=== PATIENT | male | born 1990 | race Caucasian/White ===

== ENCOUNTER 2016-09-28 18:17 | Emergency (ER) | payer OTHER ==
[~2016-09-28] VITALS: Ht 182.9 cm; Wt 101.2 kg
[~2016-09-28 18:17] MED LIST: /ESCI10TA OR; /ESCI20TA OR; ALLE25CA OR; DEPA500T OR; ESKALITH; LITHOBID; eskalith cr
[2016-09-28] MEDS ORDERED: NS 1,000 ML IV ONE (18:45)
[2016-09-28] MEDS ORDERED: GASTROGRAFIN SOLUTION 30ML (Q9963) PO ONE ×2 (19:00→19:30)
[2016-09-28 19:25] LABS: BASO % 0.3 % (0.0-1.0); EOS # 0.3 K/mm3 (0.0-0.50); EOS % 3.3 % (0.0-3.0); LARGE UNSTAINED CELL # 0.2 K/mm3 (0.0-0.4); LARGE UNSTAINED CELL % 1.7 % (0.0-4.0); LYMPH # 3.4 K/mm3 (1.5-6.5); LYMPH % 35.4 % (24.0-44.0); MEAN CORPUSCULAR HEMOGLOBIN 29.4 pg (27.0-33.0); MEAN CORPUSCULAR VOLUME 86.6 fl (80.0-96.0); MONO # 0.5 K/mm3 (0.0-0.8); MONO % 5.3 % (0.0-5.0); NEUTROPHILS # 5.3 K/mm3 (1.8-7.7); NEUTROPHILS % 54.1 % (36.0-66.0); PLATELET COUNT, AUTOMATED 227 k/mm3 (150-450); RED CELL DISTRIBUTION WIDTH 12.6 % (11.5-14.5); WHITE BLOOD COUNT 9.7 K/mm3 (4.0-10.0)
[2016-09-28 19:45] LABS: ALBUMIN 3.9 GM/DL (3.2-5.2); ALBUMIN/GLOBULIN RATIO 1.39 (1.00-1.93); ALKALINE PHOSPHATASE 89 U/L (45-117); ALT/SGPT 44 U/L (12-78); ANION GAP 7 MEQ/L (8-16); AST/SGOT 18 U/L (15-37); BILIRUBIN,DIRECT < 0.1 MG/DL (0.0-0.2); BILIRUBIN,TOTAL 0.3 MG/DL (0.2-1.0); BLOOD UREA NITROGEN 21 MG/DL (7-18); CALCIUM LEVEL 8.3 MG/DL (8.5-10.1); CARBON DIOXIDE LEVEL 26 MEQ/L (21-32); CHLORIDE LEVEL 108 MEQ/L (98-107); CREATININE FOR GFR 1.31 MG/DL (0.70-1.30); GLOMERULAR FILTRATION RATE > 60.0 (>60); GLUCOSE, FASTING 83 MG/DL (70-105); POTASSIUM SERUM 4.2 MEQ/L (3.5-5.1); SODIUM LEVEL 141 MEQ/L (136-145); TOTAL PROTEIN 6.7 GM/DL (6.4-8.2)
[2016-09-28] MEDS ORDERED: DICYCLOMINE 10 MG CAP PO ONE (19:45)
[2016-09-28] MEDS ORDERED: ISOVUE-370 76% 100ML VIAL (Q9967) As Ordered ONE (19:52)
--- NOTE | 2016-09-28 20:58 | REP ---
Clinical: Right lower quadrant pain. Technique: Axial contrast enhanced images from the lung bases to the pubic symphysis using oral and 100 ml Isovue 370 intravenous contrast material with coronal and sagittal re-formations. Findings: Lung bases demonstrate posterior basilar dependent changes. Visualized heart and pericardium are normal. Liver, spleen, pancreas, gallbladder, bilateral adrenal glands and kidneys are normal. The enteric system including stomach, small, and large bowel is unremarkable and without obstruction or acute inflammatory process. Normal terminal ileum and appendix identified in the right lower quadrant. Mildly prominent lymph nodes in the right lower quadrant and mesentery suggest mesenteric adenitis and should be correlated clinically. Pelvis demonstrates normal bladder and age appropriate prostate/seminal vesicles. No free air. No free fluid. No retroperitoneal adenopathy. Vasculature is normal. Surrounding musculoskeletal structures are intact. Impression: 1. Lymph nodes in the right lower quadrant and mesentery suggest mesenteric adenitis. 2. Normal enteric system including normal appendix in the right lower quadrant. 3. No free fluid or further acute intra-abdominal or pelvic pathology. Signed by Lit Sin MD 09/28/2016 08:49 P
[2016-09-28 21:14] VITALS: BP 121/67
== END 2016-09-28 21:33 | disposition home or self-care (01) ==
LOC: M ED 18:50
DX: I88.0 Nonspecific mesenteric lymphadenitis (principal)

== ENCOUNTER 2017-09-19 11:23 | Emergency (ER) | payer MEDICARE, OTHER, MEDICAID, SELFPAY ==
[2017-09-19] MEDS: NS 1,000 ML IV ×2 (11:45)
[2017-09-19] MEDS: ONDANSETRON 4MG/2ML VIAL (J2405) IV ×2 (12:10)
[2017-09-19] MEDS: MORPHINE 4 MG/ML 1ML VIAL/SYRINGE (J2270) IV ×2 (12:11)
[2017-09-19 12:14] LABS: BASO % 0.3 % (0.0-1.0); EOS # 0.2 10^3/uL (0.0-0.50); EOS % 2.4 % (0.0-3.0); HEMATOCRIT 46.9 % (42.0-52.0); HEMOGLOBIN 16.4 g/dl (13.5-17.5); IMMATURE GRANULOCYTE % 0.2 % (0-3.0); LYMPH # 2.3 10^3/uL (1.5-6.5); LYMPH % 22.3 % (24.0-44.0); MEAN CORPUSCULAR HEMOGLOBIN 29.1 pg (27.0-33.0); MEAN CORPUSCULAR VOLUME 83.3 fl (80.0-96.0); MONO # 0.6 10^3/uL (0.0-0.8); MONO % 5.6 % (0.0-5.0); NEUTROPHILS % 69.2 % (36.0-66.0); PLATELET COUNT, AUTOMATED 220 10^3/uL (150-450); RED BLOOD COUNT 5.63 10^6/uL (4.30-6.10); RED CELL DISTRIBUTION WIDTH 12.7 % (11.5-14.5); WHITE BLOOD COUNT 10.2 10^3/uL (4.0-10.0)
[2017-09-19 12:39] LABS: ALBUMIN/GLOBULIN RATIO 1.43 (1.00-1.93); ALKALINE PHOSPHATASE 87 U/L (45-117); ALT/SGPT 27 U/L (12-78); ANION GAP 6 MEQ/L (8-16); AST/SGOT 13 U/L (7-37); BILIRUBIN,DIRECT 0.2 MG/DL (0.0-0.2); BILIRUBIN,TOTAL 0.7 MG/DL (0.2-1.0); BLOOD UREA NITROGEN 15 MG/DL (7-18); CALCIUM LEVEL 8.4 MG/DL (8.5-10.1); CARBON DIOXIDE LEVEL 24 MEQ/L (21-32); CHLORIDE LEVEL 113 MEQ/L (98-107); CREATININE FOR GFR 0.99 MG/DL (0.70-1.30); GLOMERULAR FILTRATION RATE > 60.0 (>60); GLUCOSE, FASTING 79 MG/DL (70-100); LIPASE 157 U/L (73-393); POTASSIUM SERUM 4.1 MEQ/L (3.5-5.1); SODIUM LEVEL 143 MEQ/L (136-145); TOTAL PROTEIN 6.8 GM/DL (6.4-8.2)
[2017-09-19 12:40] LABS: LACTIC ACID SEPSIS PROTOCOL 0.6 MMOL/L (0.4-2.0)
[2017-09-19] MEDS ORDERED: ISOVUE-370 76% 100ML VIAL (Q9967) As Ordered ×2 (13:03)
[2017-09-19 15:11] LABS: KETONE, URINE AUTO RFX 1+ mg/dL (NEGATIVE); LEUKOCYTE ESTERASE UR AUTO RFX NEGATIVE (NEGATIVE); MUCUS, URINE RFX SMALL (NEGATIVE); NITRITE, URINE AUTO RFX NEGATIVE (NEGATIVE); RBC, URINE AUTO RFX 1 /HPF (0-3); SQUAM EPITHELIAL CELL UR AURFX 0 /HPF (0-6); WBC, URINE AUTO RFX 1 /HPF (0-3)
[2017-09-19 15:15] LABS: SPECIFIC GRAVITY UR AUTO RFX >1.060 (1.002-1.035)
== END 2017-09-19 15:59 | disposition home or self-care (01) ==
LOC: M ED 11:23
DX: K52.9 Noninfective gastroenteritis and colitis, unspecified (principal); F17.200 Nicotine dependence, unspecified, uncomplicated
CPT/HCPCS: J2270

== ENCOUNTER 2017-12-25 08:08 | Day surgery (SDC) | payer MEDICARE, MEDICAID ==
[2017-12-25] MEDS: NS 1,000 ML IV (07:00)
[~2017-12-25 08:08] MED LIST changes: -/ESCI10TA OR; -/ESCI20TA OR; -ALLE25CA OR; -DEPA500T OR; -ESKALITH; +LIDOCAINE 2% INJ 100 MG/5 ML SDV (FOR ANES.) As Ordered; -LITHOBID; +PROPOFOL 200 MG/20 ML VIAL As Ordered; -eskalith cr
== END 2017-12-25 10:40 | disposition home or self-care (01) ==
LOC: M OPP 08:08
DX: R10.9 Unspecified abdominal pain (principal); K31.89 Other diseases of stomach and duodenum; K29.70 Gastritis, unspecified, without bleeding; R07.89 Other chest pain; F41.9 Anxiety disorder, unspecified; F32.9 Major depressive disorder, single episode, unspecified; R06.02 Shortness of breath; F17.210 Nicotine dependence, cigarettes, uncomplicated; Z80.0 Family history of malignant neoplasm of digestive organs
CPT/HCPCS: 45378

== ENCOUNTER 2018-02-06 16:51 | Emergency (ER) | payer MEDICARE, MEDICAID ==
[2018-02-06] MEDS: diphenhydrAMINE INJ 50MG/ML VIAL (J1200) IV (17:47)
[2018-02-06] MEDS: KETOROLAC 30 MG/ML VIAL (J1885) IV (17:47)
[2018-02-06] MEDS: METOCLOPRAMIDE INJ 10MG/2ML VIAL (J2765) IV (17:47)
[2018-02-06 18:10] LABS: BASO % 0.4 % (0.0-1.0); EOS # 0.2 10^3/uL (0.0-0.50); EOS % 1.9 % (0.0-3.0); HEMATOCRIT 52.5 % (42.0-52.0); HEMOGLOBIN 17.7 g/dl (13.5-17.5); IMMATURE GRANULOCYTE % 0.4 % (0-3.0); LYMPH # 3.3 10^3/uL (1.5-6.5); LYMPH % 31.7 % (24.0-44.0); MEAN CORPUSCULAR HEMOGLOBIN 28.9 pg (27.0-33.0); MEAN CORPUSCULAR HGB CONC 33.7 g/dl (32.0-36.5); MEAN CORPUSCULAR VOLUME 85.8 fl (80.0-96.0); MONO # 0.6 10^3/uL (0.0-0.8); MONO % 5.4 % (0.0-5.0); NEUTROPHILS # 6.3 10^3/uL (1.8-7.7); NEUTROPHILS % 60.2 % (36.0-66.0); PLATELET COUNT, AUTOMATED 255 10^3/uL (150-450); RED BLOOD COUNT 6.12 10^6/uL (4.30-6.10); RED CELL DISTRIBUTION WIDTH 12.9 % (11.5-14.5); WHITE BLOOD COUNT 10.4 10^3/uL (4.0-10.0)
[2018-02-06 18:42] LABS: ANION GAP 6 MEQ/L (8-16); BLOOD UREA NITROGEN 12 MG/DL (7-18); CARBON DIOXIDE LEVEL 28 MEQ/L (21-32); CHLORIDE LEVEL 109 MEQ/L (98-107); CPK CREATINE PHOSPHOKINASE 152 U/L (39-308); CREATININE FOR GFR 1.02 MG/DL (0.70-1.30); GLOMERULAR FILTRATION RATE > 60.0 (>60); GLUCOSE, FASTING 82 MG/DL (70-100); MB/CK RELATIVE INDEX 1.38 (< OR =4); SODIUM LEVEL 143 MEQ/L (136-145); TROPONIN I < 0.02 NG/ML (< 0.10)
== END 2018-02-06 19:11 | disposition home or self-care (01) ==
LOC: M ED 16:51
DX: G44.209 Tension-type headache, unspecified, not intractable (principal); F41.9 Anxiety disorder, unspecified; F17.210 Nicotine dependence, cigarettes, uncomplicated
CPT/HCPCS: J1200

== ENCOUNTER 2019-05-29 10:23 | Emergency (ER) | payer MEDICAID, MEDICARE, OTHER ==
[~2019-05-29] VITALS: Ht 193 cm; Wt 102.3 kg
[~2019-05-29 10:23] MED LIST changes: +ALLE25CA OR; +DEPA500T OR; +ESKALITH; +LEXA1TAB OR; +LEXA1TAB2 OR; -LIDOCAINE 2% INJ 100 MG/5 ML SDV (FOR ANES.) As Ordered; +LITHOBID; +NAPR-837 PO; -PROPOFOL 200 MG/20 ML VIAL As Ordered; +RANI15TA PO; +ZOFR4TAB14 PO; +eskalith cr
[2019-05-29] MEDS ORDERED: NS 1,000 ML IV ONE (11:00)
[2019-05-29] MEDS ORDERED: ISOVUE-370 76% 100ML VIAL (Q9967) As Ordered ONE (11:18)
[2019-05-29 11:23] LABS: BASO % 0.5 % (0.0-1.0); EOS # 0.3 10^3/uL (0.0-0.5); EOS % 3.3 % (0.0-3.0); HEMATOCRIT 50.2 % (42.0-52.0); HEMOGLOBIN 16.3 g/dl (13.5-17.5); LYMPH # 2.7 10^3/uL (1.5-5.0); LYMPH % 34.7 % (24.0-44.0); MEAN CORPUSCULAR HEMOGLOBIN 27.8 pg (27.0-33.0); MEAN CORPUSCULAR HGB CONC 32.5 g/dl (32.0-36.5); MEAN CORPUSCULAR VOLUME 85.5 fl (80.0-96.0); MONO # 0.5 10^3/uL (0.0-0.8); MONO % 6.7 % (0.0-5.0); NEUTROPHILS # 4.3 10^3/uL (1.5-8.5); NEUTROPHILS % 54.4 % (36.0-66.0); PLATELET COUNT, AUTOMATED 268 10^3/uL (150-450); RED BLOOD COUNT 5.87 10^6/uL (4.30-6.10); WHITE BLOOD COUNT 7.9 10^3/uL (4.0-10.0)
[2019-05-29 11:46] LABS: ERYTHROCYTE SEDIMENTATION RATE 2 mm/hr (0-15)
--- NOTE | 2019-05-29 12:52 | REP ---
CT ANGIOGRAM CHEST: 05/29/2019. Clinical history: Chest pain. Technique: Bolus 75 mL Isovue 370, scanning through the chest with pulmonary angiogram protocol and with coronal and sagittal reconstructions and standard MIP reformats. Comparison: Chest x-ray 02/06/2018. Findings: The lung allen show minor dependent atelectatic change without infiltrate, effusion, atelectasis or mass. No nodules, pleural thickening, calcified pleural plaque or apical scarring. No pneumothorax or pneumomediastinum. Heart is not enlarged. There is no pericardial thickening or effusion. The aorta without aneurysm or dissection. The main, right and left pulmonary arteries as well as the lobar arteries are without filling defects to suggest pulmonary embolism. There is an anterior mediastinal mass superiorly in the thymic bed and it measures 4.8 vertically x 5.4 cm transverse x 2.7 cm AP. This is larger than normal for a young adult thymus and has convex margins instead of triangular-shaped concave margins. No abnormal calcifications. Attenuation values are in the high 20s to low 30s. There is no other mediastinal mass, mediastinal, hilar, axillary, supraclavicular adenopathy. Bone windows show sternum, manubrium, medial clavicles, that portion of scapula, humeral head and ribs visible as well as the spine without any focal bone abnormality. The upper abdomen shows no focal lesion in the visualized portion of liver and spleen. Gallbladder partially contracted due to recent meal. Adrenal glands normal. Upper poles kidneys intact. Pancreas unremarkable. Impression: 1. 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 Differential considerations include thymic hyperplasia, thymoma, lymphoma, germ cell neoplasm, intrathoracic goiter among others. There is no evidence to suggest goiter and no calcification or cystic components. Does not appear to invade fat. It has fairly smooth margins but is convex. No gross aggressive characteristics. 2. The lungs are clear. 3. There is no CT evidence of pulmonary thromboembolism. The aorta is intact. 4. Bony chest in the upper abdomen intact. 5. Surgical follow-up. I would note that the most recent chest x-ray of 02/06/2018 shows no plain radiographic evidence of a superior mediastinal mass and this would potentially be visible on radiograph given its location and size. Electronically Signed by Yousif Ruiz MD 05/29/2019 08:26 P
[2019-05-29 13:07] VITALS: BP 145/84
--- NOTE | 2019-05-29 19:25 | ECGEPIP ---
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 Order Number: [id number] Reading MD: Eddie West Measurements Intervals [place] Rate: 67 P: 18 [place]: 180 QRS: 4 QRSD: 93 T: 23 QT: 362 QTc: 385 Interpretive Statements SINUS RHYTHM EARLY REPOLARIZATION CW 02/05/[address] T WAVE CHANGES Electronically Signed on 05-29-2019 19:25:35 EST by Eddie Wets
--- NOTE | 2019-05-31 08:02 | ED PDOC ---
Post-Departure Follow-Up dr teresa and yoseph dawn faxed formal reprot of cta chest forfu.Eddie Eng MD May 31, 2019 08:02
== END 2019-05-29 13:14 | disposition home or self-care (01) ==
LOC: M ED 10:23
DX: J98.59 Other diseases of mediastinum, not elsewhere classified (principal); R91.8 Other nonspecific abnormal finding of lung field; F17.200 Nicotine dependence, unspecified, uncomplicated; F32.9 Major depressive disorder, single episode, unspecified; F41.9 Anxiety disorder, unspecified
CPT/HCPCS: 71275; 80047; 82105; 84702; 85025; 85652; 86140; 93005; 99284; Q9967

== ENCOUNTER → 2019-06-06 | Outpatient (REF) | payer MEDICAID, OTHER, SELFPAY ==
[2019-06-06 13:40] LABS: INR 1.11
[2019-06-06 13:41] LABS: PARTIAL THROMBOPLASTIN TIME 33.9 SECONDS (25.0-38.4)
[2019-06-06 13:46] LABS: PLATELET COUNT, AUTOMATED 278 10^3/uL (150-450)
== END ==
LOC: M LAB REF 13:19
PROVIDERS: ATTEND Thoracic Surgery (Cardiothoracic Vascular Surgery)
DX: Z01.812 Encounter for preprocedural laboratory examination (principal); R91.8 Other nonspecific abnormal finding of lung field

== ENCOUNTER → 2019-06-09 | Outpatient (CLI) | payer MEDICAID, MEDICARE, OTHER, SELFPAY ==
[~2019-06-09] MED LIST changes: +LIDOCAINE 1% MDV 20ML VIAL As Ordered ONE
--- NOTE | 2019-06-09 14:39 | REP ---
Chest x-ray: Two views. History: Status post parasternal mediastinum needle biopsy under CT guidance. Comparison chest x-ray: February 06, 2018. Findings: The lungs are symmetrically aerated and free of infiltrate. There is no evidence of pneumothorax or hydrothorax. Mediastinum is not widened. Heart is not enlarged. Impression: No complication seen. Electronically Signed by Stef Torres MD 06/09/2019 02:31 P
[2019-06-09 15:09] VITALS: BP 146/78
--- NOTE | 2019-06-10 08:21 | REP ---
CT-GUIDED MEDIASTINAL MASS BIOPSY The procedure was performed under the direct supervision of Dr. Torres. The patient has a history of A 5.4 x 4.8 x 2.7 cm anterior superior mediastinal mass in the thymic than seen on a previous CT scan dated 05/29/2019. The risks and benefits of the procedure were explained to the patient and informed consent was obtained. The mediastinal mass was localized using CT guidance. The skin was prepped and draped in a sterile fashion. 1% lidocaine was used as a local anesthetic. Using CT guidance a 19/20 gauge coaxial needle biopsy system was inserted and advanced into the mass. Six passes were made yielding six cores. In images obtained after biopsy demonstrate a small pneumomediastinum. The patient tolerated the procedure well and there were no immediate complications. After the appropriate amount of monitored convalescence the patient was discharged from the department. Electronically Signed by IRWIN Bernstein 06/09/2019 05:25 P Electronically Signed by Stef Torres MD 06/10/2019 08:13 A
== END ==
LOC: M IRPRO 12:47
PROVIDERS: ATTEND Thoracic Surgery (Cardiothoracic Vascular Surgery)
DX: J98.59 Other diseases of mediastinum, not elsewhere classified (principal)

== ENCOUNTER → 2019-06-27 | Outpatient (CLI) | payer MEDICAID, SELFPAY ==
[~2019-06-27] MED LIST changes: -LIDOCAINE 1% MDV 20ML VIAL As Ordered ONE; +PERCOCET PO
[2019-06-27 14:18] LABS: HEMATOCRIT 48.6 % (42.0-52.0); HEMOGLOBIN 16.2 g/dl (13.5-17.5); MEAN CORPUSCULAR HEMOGLOBIN 28.2 pg (27.0-33.0); MEAN CORPUSCULAR HGB CONC 33.3 g/dl (32.0-36.5); MEAN CORPUSCULAR VOLUME 84.5 fl (80.0-96.0); PLATELET COUNT, AUTOMATED 252 10^3/uL (150-450); RED BLOOD COUNT 5.75 10^6/uL (4.30-6.10); WHITE BLOOD COUNT 9.1 10^3/uL (4.0-10.0)
[2019-06-27 14:24] LABS: ABG pH (ARTERIAL) 7.408 UNITS (7.350-7.450)
[2019-06-27 14:25] LABS: ABG BASE EXCESS 0.1 (-2.0-2.0); ABG HCO3 24.7 MEQ/L (22.0-26.0); ABG O2 SATURATION 97.2 % (95.0-99.0); ABG PARTIAL PRESSURE CO2 40.1 mmHg (35.0-45.0); ABG PARTIAL PRESSURE O2 86.3 mmHg (75.0-100.0); ABG STANDARD HCO3 24.6 MEQ/L (22.0-26.0)
[2019-06-27 14:25] LABS: APPEARANCE, URINE CLEAR (CLEAR); BACTERIA, URINE AUTO NEGATIVE (NEGATIVE); BILIRUBIN, URINE AUTO NEGATIVE (NEGATIVE); BLOOD, URINE BLOOD NEGATIVE (NEGATIVE); COLOR, URINE YELLOW (YELLOW); GLUCOSE, URINE (UA) AUTO NEGATIVE (NEGATIVE); KETONE, URINE AUTO NEGATIVE (NEGATIVE); LEUKOCYTE ESTERASE, URINE AUTO NEGATIVE (NEGATIVE); MUCUS, URINE SMALL (NEGATIVE); NITRITE, URINE AUTO NEGATIVE (NEGATIVE); PROTEIN, URINE AUTO NEGATIVE (NEGATIVE); RBC, URINE AUTO 0 /HPF (0-3); SQUAMOUS EPITHELIAL CELL UR AU 0 /HPF (0-6); TRANSITIONAL EPITHELIAL AUTO <1 /HPF; UROBILINOGEN, URINE AUTO 0.2 mg/dL (0.0-2.0); WBC, URINE AUTO 1 /HPF (0-3)
[2019-06-27 14:30] LABS: INR 1.12; PROTHROMBIN TIME 14.2 SECONDS (11.8-14.0)
[2019-06-27 14:31] LABS: PARTIAL THROMBOPLASTIN TIME 33.4 SECONDS (25.0-38.4)
[2019-06-27 14:41] LABS: BLOOD UREA NITROGEN 13 MG/DL (7-18); CALCIUM LEVEL 9.3 MG/DL (8.5-10.1); CARBON DIOXIDE LEVEL 28 MEQ/L (21-32); CHLORIDE LEVEL 107 MEQ/L (98-107); GLOMERULAR FILTRATION RATE > 60.0 (>60); GLUCOSE, FASTING 85 MG/DL (70-100); SODIUM LEVEL 136 MEQ/L (136-145)
--- NOTE | 2019-06-27 15:40 | REP ---
PA and lateral chest: Comparison is 06/09/2019. The lung allen are clear. The cardiac size is normal. The kortney, mediastinum, and skeletal structures are unremarkable. Impression: Negative PA and lateral chest. . There is no interval change. Electronically Signed by Clayton Ayon MD 06/27/2019 03:32 P
--- NOTE | 2019-06-27 19:26 | ECGEPIP ---
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 Electronically Signed on 06-27-2019 19:26:42 EST by Alfredo Lr
== END ==
LOC: M ADMPAT 13:11
PROVIDERS: ATTEND Thoracic Surgery (Cardiothoracic Vascular Surgery)
DX: C38.3 Malignant neoplasm of mediastinum, part unspecified (principal)

== ENCOUNTER 2019-06-28 09:49 | Inpatient (IN) | payer MEDICARE, MEDICAID ==
[2019-06-28] VITALS (10 sets, daily range): BP systolic 103–132; BP diastolic 55–72
[~2019-06-28] VITALS: Ht 182.9 cm; Wt 103.4 kg
[~2019-06-28 09:49] MED LIST changes: +LR 1,000 ML IV ONE; +MUPIROCIN 2% OINT 22 GM TUBE TOP ONE; -PERCOCET PO; +ceFAZolin SOD 2 GM in IV 1 EA IV ONE
[2019-06-28] MEDS ORDERED: BUPIVACAINE/EPIN 0.5% 30 ML VIAL As Ordered ONE (10:40)
[2019-06-28] MEDS ORDERED: BUPIVACAINE HCL 0.5% 10 ML VIAL As Ordered ONE (10:57)
[2019-06-28] MEDS ORDERED: BUPIVACAINE LIPOSOME/PF 1.3% 20ML VIAL (13.3MG/ML)(EXPAREL)(C9290 PER1MG) As Ordered ONE (10:57)
[2019-06-28] MEDS ORDERED: fentaNYL 250 MCG/5 ML INJECTION (J3010) As Ordered ONE (11:03)
[2019-06-28] MEDS ORDERED: ONDANSETRON 4MG/2ML VIAL (J2405) As Ordered ONE (11:03)
[2019-06-28] MEDS ORDERED: dexameTHASONE 4 MG/ML 1ML VIAL (J1100) As Ordered ONE (11:03)
[2019-06-28] MEDS ORDERED: MIDAZOLAM INJ 2 MG/2 ML VIAL (J2250) As Ordered ONE (11:03)
[2019-06-28] MEDS ORDERED: ROCURONIUM BROMIDE 50 MG/5 ML VIAL As Ordered ONE ×3 (11:03→12:51)
[2019-06-28] MEDS ORDERED: HYDROmorphone HCL 2 MG/ML 1ML VIAL (J1170) As Ordered ONE (11:03)
[2019-06-28] MEDS ORDERED: LIDOCAINE 2% INJ 100 MG/5 ML SDV (FOR ANES.) As Ordered ONE (11:03)
[2019-06-28] MEDS ORDERED: propofoL 200 MG/20 ML VIAL As Ordered ONE (11:03)
[2019-06-28] MEDS ORDERED: ePHEDrine SULFATE 25 MG/5 ML(5MG/ML) SYRINGE As Ordered ONE (12:17)
[2019-06-28] MEDS ORDERED: SUGAMMADEX SODIUM 500 MG/5 ML VIAL (BRIDION) As Ordered ONE (14:10)
[2019-06-28] MEDS ORDERED: ACETAMINOPHEN 1000MG 100ML IV BTL (OFIRMEV) (J0131 PER 10MG) As Ordered ONE (14:24)
[2019-06-28] MEDS ORDERED: KETOROLAC 60 MG/2 ML VIAL (J1885) As Ordered ONE (14:26)
[2019-06-28] MEDS ORDERED: KCL 20MEQ IN D5/NS 1000ML 1,000 ML IV SCH (15:25)
[2019-06-28] MEDS ORDERED: NORCO, ANEXSIA 5/325MG TABLET (HYDROcodone/ACETAMINOPHEN) PO PRN (15:30)
[2019-06-28] MEDS ORDERED: diphenhydrAMINE INJ 50MG/ML VIAL (J1200) IV PRN (15:30)
[2019-06-28] MEDS ORDERED: MORPHINE 1MG/ML IN 0.9% NACL 100ML IV BAG IV PRN (15:30)
[2019-06-28] MEDS ORDERED: NALOXONE INJ 0.4 MG/1 ML VIAL (J2310) IV PRN (15:30)
[2019-06-28] MEDS ORDERED: NALBUPHINE HCL 10 MG/ML AMP (J2300) IV PRN (15:30)
[2019-06-28] MEDS ORDERED: EPIDURAL/PCA KEYS XX PRN (15:30)
[2019-06-28] MEDS ORDERED: ACETAMINOPHEN TAB 650MG DOSE (2X325MG) PO PRN (15:30)
[2019-06-28] MEDS ORDERED: BISACODYL 10 MG SUPP PR PRN (15:30)
[2019-06-28] MEDS ORDERED: LEVALBUTEROL 1.25 MG/0.5 ML CONCENTRATE NEB NEB PRN (15:30)
--- NOTE | 2019-06-28 16:23 | REP ---
Portable chest, 04:00 p.m., single AP view with the patient upright, post operative study: Comparison is 06/27/2019. There are sternotomy wires in the upper sternum. There is a surgical drainage tube superimposed over the midline, possibly a mediastinal drainage tube. The lung allen are clear. There is no pneumothorax. No pleural fluid collections. The cardiac size is normal. The kortney, mediastinum, skeletal structures are unremarkable. Impression: Sternotomy wires and surgical drainage tube as described. Otherwise, negative portable chest. Electronically Signed by Clayton Ayon MD 06/28/2019 04:15 P
[2019-06-28 16:30] LABS: ABG BASE EXCESS -3.4 (-2.0-2.0); ABG O2 SATURATION 95.4 % (95.0-99.0); ABG PARTIAL PRESSURE CO2 46.2 mmHg (35.0-45.0); ABG PARTIAL PRESSURE O2 80.3 mmHg (75.0-100.0); ABG STANDARD HCO3 21.6 MEQ/L (22.0-26.0); ABG TOTAL CO2 24.4 MEQ/L (22.0-29.0); ABG pH (ARTERIAL) 7.315 UNITS (7.350-7.450)
[2019-06-28] MEDS ORDERED: fentaNYL 100 MCG/2 ML INJECTION (J3010) IV PRN (16:30)
[2019-06-28] MEDS ORDERED: LR 1,000 ML IV SCH (16:30)
[2019-06-28] MEDS ORDERED: ONDANSETRON 4MG/2ML VIAL (J2405) IV PRN (16:30)
[2019-06-28] MEDS ORDERED: oxyCODONE 5MG TAB PO PRN (16:30)
[2019-06-28 16:32] LABS: BASO # 0.1 10^3/uL (0.0-0.2); BASO % 0.3 % (0.0-1.0); EOS # 0.1 10^3/uL (0.0-0.5); EOS % 0.3 % (0.0-3.0); HEMATOCRIT 44.9 % (42.0-52.0); HEMOGLOBIN 15.1 g/dl (13.5-17.5); MEAN CORPUSCULAR HEMOGLOBIN 28.7 pg (27.0-33.0); MEAN CORPUSCULAR HGB CONC 33.6 g/dl (32.0-36.5); MEAN CORPUSCULAR VOLUME 85.4 fl (80.0-96.0); MONO # 0.3 10^3/uL (0.0-0.8); MONO % 1.3 % (0.0-5.0); NEUTROPHILS # 16.4 10^3/uL (1.5-8.5); NEUTROPHILS % 82.5 % (36.0-66.0); PLATELET COUNT, AUTOMATED 266 10^3/uL (150-450); RED BLOOD COUNT 5.26 10^6/uL (4.30-6.10); WHITE BLOOD COUNT 19.8 10^3/uL (4.0-10.0)
[2019-06-28 16:49] LABS: BLOOD UREA NITROGEN 12 MG/DL (7-18); CALCIUM LEVEL 8.6 MG/DL (8.5-10.1); CARBON DIOXIDE LEVEL 24 MEQ/L (21-32); CHLORIDE LEVEL 109 MEQ/L (98-107); CREATININE FOR GFR 1.11 MG/DL (0.70-1.30); GLOMERULAR FILTRATION RATE > 60.0 (>60); GLUCOSE, FASTING 111 MG/DL (70-100); POTASSIUM SERUM 3.5 MEQ/L (3.5-5.1); SODIUM LEVEL 139 MEQ/L (136-145)
[2019-06-28] MEDS: ONDANSETRON 4MG/2ML VIAL (J2405) IV PRN (18:03)
[2019-06-28] MEDS ORDERED: INFLUENZA QUADRIVALENT PF VACCINE 0.5ML SYRINGE (90686) IM PRN (19:00)
[2019-06-28] MEDS ORDERED: ONDANSETRON 4MG/2ML VIAL (J2405) IV ONE (19:30)
[2019-06-28] MEDS: LEVALBUTEROL 1.25 MG/0.5 ML CONCENTRATE NEB NEB SCH (19:34)
--- NOTE | 2019-06-28 21:29 | RO ---
DATE OF PROCEDURE: 06/28/2019 PREPROCEDURE DIAGNOSIS: Anterior mediastinal mass. POSTPROCEDURE DIAGNOSIS: Anterior mediastinal mass. Pathology pending. PROCEDURE: Excision mediastinal mass via yin median sternotomy SURGEON: Salinas Gilbert MD STONE BANKER: ANESTHESIA: FINDINGS: Mediastinal mass superiorly had the shape of a thymus, but certainly not the consistency. It was large, rounded, somewhat fatty with some very hard nodules. My suspicion is that this is going to represent a thymoma. It did not look like a lymphoma. DESCRIPTION OF PROCEDURE: Under satisfactory general anesthesia, the patient was prepped and draped in the usual sterile fashion. The patient was marked, and a median sternotomy incision was made from the sternal notch to just beyond the angle of Jamin. Incision was carried down through subcutaneous tissue and the sternum was identified and scored in its midline. The sternal ligament was divided. The second intercostal space was then identified just above the third costal cartilage. This was gently dissected to avoid the internal mammary artery and vein. The sternal saw was then used to cut chcf through the sternum in an L fashion. The sternum was then split. The sternum was retracted, and a long, tedious dissection to identify the innominate vein was undertaken. The innominate vein was covered by the tumor, which had to be dissected off the tumor. It could finally be identified and all adventitious tissue was dissected to free the vein up. Only at that time did we spread the sternum, making sure the vein was not under tension. As part of the tumor had already been dissected, dissection was continued towards the left inferiorly. This too was a long, tedious dissection. There was a fairly intact plane with adventitial adhesive tissue. The entire tumor on the left side was completely freed up. Attention was turned inferiorly with the same dissection going down to the pericardium. I changed the sides of the table and then dissected the right side out, again being very careful to remove the entire tumor. I did get into the pleura. The dissection plane was re-identified, and the dissection continued smoothly to the superior pole. There were numerous large veins coming from the innominate vein into the tumor, and these were clipped and then divided with the Harmonic scalpel. The specimen was then finally delivered to pathology. It was sent fresh in case it needed flow cytometry. After achieving adequate hemostasis by once again cauterizing the edges of the sternum, two [id number] #5 wires were placed along with one single wire from the inferior sternum to the hemisternotomy segment. These were then tightened to securely anchor the sternum and to put it into proper nondisplaced position. Prior to closing the sternum, a SHORTY drain was placed through the neck after dissecting a portion of the neck to identify the external jugular vein. SHORTY was connected to suction. Wires returned into the sternum. The fascia and pectoral muscles were reapproximated by use of a running #0 Vicryl suture. The subcutaneous tissue by use of #3-0 Vicryl suture, and the skin by use of #3-0 Monocryl subcuticular suture. The patient tolerated the procedure well and left the operating room in satisfactory condition for the recovery room.
[2019-06-28] MEDS: ceFAZolin SOD 1 GM in D5W MINI-BAG PLUS 50 ML IV SCH (21:35)
[2019-06-28] MEDS: HEPARIN SOD (PORCINE) 5000 UNITS/ML VIAL (J1644 PER 1000UNITS) SC SCH (21:35)
[2019-06-28] MEDS: KETOROLAC 30 MG/ML VIAL (J1885) IV SCH (21:36)
[2019-06-28] MEDS: PERCOCET 5MG/325MG TAB PO PRN (21:37)
[2019-06-28] MEDS: DOCUSATE SODIUM 100 MG CAP PO SCH (21:37)
[2019-06-29] VITALS (18 sets, daily range): BP systolic 110–148; BP diastolic 53–81; O2SAT 93–96
[2019-06-29] MEDS: ONDANSETRON 4MG/2ML VIAL (J2405) IV PRN ×2 (00:20→08:20)
[2019-06-29] MEDS: LEVALBUTEROL 1.25 MG/0.5 ML CONCENTRATE NEB NEB SCH ×4 (02:11→22:38)
[2019-06-29] MEDS: KETOROLAC 30 MG/ML VIAL (J1885) IV SCH ×4 (03:56→20:29)
[2019-06-29 04:30] LABS: BASO % 0.1 % (0.0-1.0); EOS % 0.1 % (0.0-3.0); HEMATOCRIT 40.1 % (42.0-52.0); HEMOGLOBIN 13.2 g/dl (13.5-17.5); LYMPH # 2.1 10^3/uL (1.5-5.0); LYMPH % 11.5 % (24.0-44.0); MEAN CORPUSCULAR HEMOGLOBIN 28.2 pg (27.0-33.0); MEAN CORPUSCULAR HGB CONC 32.9 g/dl (32.0-36.5); MEAN CORPUSCULAR VOLUME 85.7 fl (80.0-96.0); MONO # 1.2 10^3/uL (0.0-0.8); MONO % 6.5 % (0.0-5.0); NEUTROPHILS # 14.7 10^3/uL (1.5-8.5); NEUTROPHILS % 81.4 % (36.0-66.0); PLATELET COUNT, AUTOMATED 240 10^3/uL (150-450); RED BLOOD COUNT 4.68 10^6/uL (4.30-6.10); WHITE BLOOD COUNT 18.1 10^3/uL (4.0-10.0)
[2019-06-29 05:03] LABS: BLOOD UREA NITROGEN 11 MG/DL (7-18); CARBON DIOXIDE LEVEL 25 MEQ/L (21-32); CHLORIDE LEVEL 109 MEQ/L (98-107); GLOMERULAR FILTRATION RATE > 60.0 (>60); GLUCOSE, FASTING 118 MG/DL (70-100); POTASSIUM SERUM 4.1 MEQ/L (3.5-5.1); SODIUM LEVEL 138 MEQ/L (136-145)
[2019-06-29 06:09] LABS: ABG BASE EXCESS -1.6 (-2.0-2.0); ABG O2 SATURATION 98.8 % (95.0-99.0); ABG PARTIAL PRESSURE CO2 38.5 mmHg (35.0-45.0); ABG PARTIAL PRESSURE O2 124.4 mmHg (75.0-100.0); ABG STANDARD HCO3 23.2 MEQ/L (22.0-26.0); ABG TOTAL CO2 24.2 MEQ/L (22.0-29.0); ABG pH (ARTERIAL) 7.394 UNITS (7.350-7.450)
[2019-06-29] MEDS: ceFAZolin SOD 1 GM in D5W MINI-BAG PLUS 50 ML IV SCH ×3 (06:35→20:29)
[2019-06-29] MEDS: PERCOCET 5MG/325MG TAB PO PRN ×4 (06:45→20:27)
[2019-06-29] MEDS: PANTOPRAZOLE 40MG TAB (PROTONIX) PO SCH (08:19)
[2019-06-29] MEDS: DOCUSATE SODIUM 100 MG CAP PO SCH ×2 (08:19→20:28)
[2019-06-29] MEDS: MOM 30ML SUSPENSION UDC PO SCH (08:19)
[2019-06-29] MEDS: HEPARIN SOD (PORCINE) 5000 UNITS/ML VIAL (J1644 PER 1000UNITS) SC SCH ×2 (08:20→20:29)
--- NOTE | 2019-06-29 09:13 | REP ---
PA and lateral chest: Comparison is 06/28/2019. Lung allen are clear. Cardiac size is normal. The kortney, mediastinum, skeletal structures are unremarkable. Sternotomy wires and surgical drain are again identified, unchanged. Impression: There is no interval change. Electronically Signed by Clayton Ayon MD 06/29/2019 09:05 A
--- NOTE | 2019-06-29 09:19 | IPN ---
DATE: 06/29/2019 This is postoperative day 1 for anterior mediastinal mass removal. Mr. Collazo is seen and examined this morning during bedside rounds. He was sitting comfortably in the intensive care unit (ICU) bed in no acute distress. He states that overnight that he had multiple bouts of nausea and vomiting, which he believes was secondary to the BATCHMAKER pump and not having any food in his stomach. He was given a clear liquid diet last night, which he states did not sit really well, but he would like to have a regular diet this morning if possible. He denies any fevers, chills or night sweats. He says his pain is tolerable at 4 out of 5 right now. He would like to know if he can have his Carballo removed this morning as it is uncomfortable. He has had to go down for his chest x-ray and has no other complaints this morning. No other overnight events or changes noted by nursing. PHYSICAL EXAMINATION: VITAL SIGNS: Temperature 98.7, pulse 98, respirations 15, blood pressure 125/61 (81), pulse oximetry 97% on 1 liter of nasal cannula. Intake total 3127, output 1378 with a net balance of positive 1749 mL. Chance Cantu drain 80 mL. Urine output 798 mL. Weight this morning was 102.4. GENERAL: This is a very pleasant 28-year-old male sitting up in bed. He does not appear in acute distress. Answering questions. No respiratory distress. HEENT: Atraumatic, normocephalic. Pupils are equal, round and reactive. Trachea midline. No lymphadenopathy. Moist mucous membranes. CARDIAC: Regular rate and rhythm. No audible murmurs, rubs or gallops. LUNGS: Clear to auscultation bilaterally. Some bibasilar crackles at the bases but nothing too significant. No dullness to percussion. No E-to-A egophony. The patient did not take deep inhalations due to some chest discomfort but denies pleuritic chest pain with deep inhalations. Anterior chest wall surgical wound healing appropriately, dried blood appreciated with SHORTY drain coming up the right lateral pole of the sternum. Continues to have serosanguineous blood. No blood clots noted in the SHORTY drain. ABDOMEN: Soft, nontender, nondistended. Positive bowel sounds in all four quadrants. EXTREMITIES: No lower extremity edema. Sequentials are in place, patient removed them due to discomfort. No calf tenderness. LABORATORY DATA: Hematology: WBC 18.1, hemoglobin 13.2, hematocrit 40.1, platelets 248. Chemistry: Sodium 138, potassium 4.1, chloride 109, carbon dioxide 25, anion gap 411, BUN 11, creatinine 0.90, fasting glucose 118. AB.394, pCO2 of 38.5, pO2 of 124.4. Pathology of the mediastinum currently still pending. Chest x-ray this morning, official is currently pending, but read by me shows right hemidiaphragm slightly elevated, no pneumothorax, good vasculature, no increased vascular congestion, sternal wires in place. Trachea is at midline. No cardiomegaly. Slight blunting of the costophrenic angle in the right lower base, very minimal on the left. ASSESSMENT AND PLAN: This is a 28-year-old male who is postoperative day #1 for anterior mediastinal mass removal. 1. Postoperative day 1 for anterior mediastinal mass removal, unknown pathology. At this current time, his pain is currently controlled with oral medications. We will continue with such. Chest x-ray this morning did show slight blunting of the costophrenic angles. He does have IV fluids running. When we advance diet, we can discontinue the IV fluids. The patient is saturating appropriately on 1 liter nasal cannula, can titrate down to maintain saturations above 95. Discontinue the Carballo this morning and advance his diet. We are waiting for his pathology, which I do not believe will come back while he is admitted. Continue with SHORTY drain. Advised him to continue using incentive spirometry and PEP therapy as well. We predict that he will be admitted for another 24 to 48 hours to make sure that pain is controlled and the patient is back to functional baseline status prior to discharge. He possibly can be downgraded to progressive care unit (PCU), we will assess later this afternoon. Attending addendum: agree with CXR interpretation. Phrenic nerve was certainly at risk for traction injury. Did enter pleura but very anteriorly. Will closely observe in post operative follow up. HEIKE
[2019-06-29] MEDS: SLF 3 ML SYR IV SCH ×2 (14:00→20:29)
[2019-06-29] MEDS ORDERED: SLF 3 ML SYR IV PRN (15:30)
[2019-06-30] VITALS: BP 126/58
[2019-06-30] MEDS: PERCOCET 5MG/325MG TAB PO PRN ×5 (00:16→22:22)
[2019-06-30 04:00] VITALS: BP 134/64
[2019-06-30] MEDS: ceFAZolin SOD 1 GM in D5W MINI-BAG PLUS 50 ML IV SCH ×2 (04:19→12:22)
[2019-06-30] MEDS: KETOROLAC 30 MG/ML VIAL (J1885) IV SCH ×4 (04:19→20:03)
[2019-06-30] MEDS: ONDANSETRON 4MG/2ML VIAL (J2405) IV PRN ×2 (05:13→09:15)
[2019-06-30] MEDS: SLF 3 ML SYR IV SCH ×3 (05:22→20:05)
[2019-06-30 06:12] LABS: BASO % 0.4 % (0.0-1.0); EOS # 0.2 10^3/uL (0.0-0.5); EOS % 1.4 % (0.0-3.0); HEMATOCRIT 39.6 % (42.0-52.0); HEMOGLOBIN 12.9 g/dl (13.5-17.5); LYMPH # 3.8 10^3/uL (1.5-5.0); LYMPH % 35.7 % (24.0-44.0); MEAN CORPUSCULAR HEMOGLOBIN 28.6 pg (27.0-33.0); MEAN CORPUSCULAR HGB CONC 32.6 g/dl (32.0-36.5); MEAN CORPUSCULAR VOLUME 87.8 fl (80.0-96.0); MONO # 0.8 10^3/uL (0.0-0.8); NEUTROPHILS % 55.2 % (36.0-66.0); PLATELET COUNT, AUTOMATED 220 10^3/uL (150-450); RED BLOOD COUNT 4.51 10^6/uL (4.30-6.10); WHITE BLOOD COUNT 10.8 10^3/uL (4.0-10.0)
[2019-06-30 06:39] LABS: BLOOD UREA NITROGEN 10 MG/DL (7-18); CALCIUM LEVEL 8.2 MG/DL (8.5-10.1); CARBON DIOXIDE LEVEL 29 MEQ/L (21-32); CHLORIDE LEVEL 112 MEQ/L (98-107); CREATININE FOR GFR 0.97 MG/DL (0.70-1.30); GLOMERULAR FILTRATION RATE > 60.0 (>60); GLUCOSE, FASTING 101 MG/DL (70-100); POTASSIUM SERUM 3.5 MEQ/L (3.5-5.1); SODIUM LEVEL 143 MEQ/L (136-145)
[2019-06-30 07:00] VITALS: BP 114/63
[2019-06-30] MEDS: LEVALBUTEROL 1.25 MG/0.5 ML CONCENTRATE NEB NEB SCH ×3 (08:18→21:05)
--- NOTE | 2019-06-30 08:39 | REP ---
PA and lateral chest: Comparison is 06/29/2019. The mediastinal surgical drain is been removed. There is an unusual right paramediastinal density, postsurgical versus postsurgical drain removal artifact of the. Retrospectively there was also present on 06/29/2019, partially obscured by the surgical drain. The right costophrenic angle is slightly effaced suggestive of a small right pleural effusion. Retrospect, this is unchanged from 06/29/2019. There is minor atelectasis inferiorly in the right lung. Lung allen otherwise clear. The cardiac size is normal. There are sternotomy wires, unchanged. Impression: The unusual right paramediastinal density as described, possibly postsurgical change. Slight effacement right costophrenic angle, possibly a small right pleural effusion. Electronically Signed by Clayton Ayon MD 06/30/2019 08:29 A
[2019-06-30] MEDS: PANTOPRAZOLE 40MG TAB (PROTONIX) PO SCH (09:09)
[2019-06-30] MEDS: HEPARIN SOD (PORCINE) 5000 UNITS/ML VIAL (J1644 PER 1000UNITS) SC SCH ×2 (09:09→20:05)
[2019-06-30] MEDS: MOM 30ML SUSPENSION UDC PO SCH (09:09)
[2019-06-30] MEDS: DOCUSATE SODIUM 100 MG CAP PO SCH ×2 (09:09→20:04)
[2019-06-30] MEDS ORDERED: POTASSIUM CHLORIDE 10 MEQ SR TABLET PO ONE (10:15)
[2019-06-30] MEDS ORDERED: FUROSEMIDE 40 MG TAB PO ONE (10:15)
--- NOTE | 2019-06-30 10:24 | IPN ---
DATE: 06/30/2019 This is postoperative day 2 of anterior mediastinal mass removal, unknown pathology. Mr. Collazo is seen and examined this morning during bedside rounds in the progressive care unit (PCU). He was sitting up in bed. He states that he has some slight discomfort, but it is a tolerable pain that he rates a 6 out of 10 at the current time. He will be due for Toradol in the next 30 minutes with help to get the edge off. Overnight, he did desaturate to a low of 88% on room air and he had to be placed on nasal cannula, which he is able to come off this morning and he is saturating at 92% on room air. He denied having any shortness of breath, trouble breathing or chest pain at the time of the episode. He believes that he was in deep sleep and he was sleeping comfortably at that time. He does note that early this morning after eating [place] food that he was a little bit nauseous and did have some non-bilious, non-bloody undigested food. He states that it is because he at the [place] food early this morning and that was a little bit too much for him. Besides that, no other overnight events were reported. The patient denies any constipation, diarrhea or abdominal pain. He is urinating well with no problems. He is ambulating around the room. He has noticed that his energy is coming back. He is not as stiff. PHYSICAL EXAMINATION: VITAL SIGNS: Temperature 97.7, pulse 94, respiratory rate 18, blood pressure 114/63 (MAP 80), pulse oximetry 92% on room air. Intake and output: Intake in the last 24 hours was 2090 mL, output total 960 mL with a balance of positive 1130 mL. Urine total 900 mL. Chance Cantu drain was removed yesterday. His weight this morning was 130.5 kg, which is up from 102.4 kg yesterday. GENERAL: This is a very pleasant 28-year-old male who is sitting up in bed, does not appear in any acute distress unless palpation over the surgical suture line. He does not appear in any respiratory distress and is appropriately answering questions and completing sentences. HEENT: Atraumatic, normocephalic. No oral thrush. No lymphadenopathy. Trachea is midline. CARDIOVASCULAR: Regular rate and rhythm. No audible murmurs, rubs or gallops. RESPIRATORY: Clear to auscultation in the upper air lobes bilaterally. Can hear aeration in the bibasilar bases, but the patient is not taking deep inhalation so it appears to be slightly diminished. He states that it is secondary to discomfort. ABDOMEN: Soft, nontender. EXTREMITIES: No lower extremity edema or calf tenderness. SKIN: Surgical tape over Chance Cantu drain insertion point. No discharge, drainage, serosanguineous or blood noted. Minimal tenderness appreciated over the midline of the sternum. Dried blood. No erythema, hematoma noted. LABORATORY DATA: WBC 10.8, hemoglobin 12.9, hematocrit 39.6, platelets 220. Chemistry: Sodium 143, potassium 3.5, chloride 112, carbon dioxide 29, anion gap 2, BUN 10, creatinine 0.97, fasting glucose 102, calcium 8.2. IMAGING: Currently pending, for he just went down for his chest x-ray. ASSESSMENT AND PLAN: This is a 28-year-old male who is postoperative day 2 for an anterior mediastinal mass removal. 1. Postoperative day 2 for anterior mediastinal mass removal, unknown pathology. Pain is currently controlled with the current oral medications. Surgical site appears to be healing appropriately. He did have another episode of vomiting last night that he contributes to the [place] food. White count this morning was good at 10.8. He has been afebrile since admission. Blood pressure has been good, as well as no tachycardia. Clinically, he looks stable. With the recurrent aspiration, we have to be careful with aspiration pneumonia. We will continue to monitor for fever or any infectious processes. He has gotten a total of five bags of cefazolin postoperatively after surgery. We will continue with one more bag that he has remaining as prescribed. He is ambulating with no problem. He denies any shortness of breath. His energy is improved since the surgery as well. We will continue with incentive spirometry and PEP therapy to prevent atelectasis and pneumonia. We will continue to monitor him for another 24 to 48 hours to make sure that pain is adequately controlled with no vomiting episodes. He did not have any more desaturations overnight while sleeping. We will keep him on progressive care unit (PCU) status and continue to monitor. Attending addendum: CXR unchanged from yesterday. Still slightly elevated right hemidiaphragm. MTDD
[2019-06-30 12:00] VITALS: BP 113/60
[2019-06-30 16:00] VITALS: BP 122/69
[2019-06-30 20:00] VITALS: BP 132/61
[2019-07-01] VITALS: BP 135/63
[2019-07-01] MEDS: KETOROLAC 30 MG/ML VIAL (J1885) IV SCH ×2 (02:01→08:06)
[2019-07-01 04:00] VITALS: BP 130/65
[2019-07-01] MEDS: LEVALBUTEROL 1.25 MG/0.5 ML CONCENTRATE NEB NEB SCH ×2 (04:20→08:36)
[2019-07-01] MEDS: PERCOCET 5MG/325MG TAB PO PRN (04:56)
[2019-07-01] MEDS: SLF 3 ML SYR IV SCH (05:24)
[2019-07-01 06:01] LABS: BASO # 0.1 10^3/uL (0.0-0.2); BASO % 0.6 % (0.0-1.0); EOS # 0.3 10^3/uL (0.0-0.5); EOS % 3.1 % (0.0-3.0); HEMATOCRIT 38.7 % (42.0-52.0); HEMOGLOBIN 12.6 g/dl (13.5-17.5); LYMPH # 4.1 10^3/uL (1.5-5.0); LYMPH % 46.3 % (24.0-44.0); MEAN CORPUSCULAR HEMOGLOBIN 28.7 pg (27.0-33.0); MEAN CORPUSCULAR HGB CONC 32.6 g/dl (32.0-36.5); MEAN CORPUSCULAR VOLUME 88.2 fl (80.0-96.0); MONO # 0.5 10^3/uL (0.0-0.8); MONO % 6.1 % (0.0-5.0); NEUTROPHILS # 3.9 10^3/uL (1.5-8.5); NEUTROPHILS % 43.7 % (36.0-66.0); PLATELET COUNT, AUTOMATED 225 10^3/uL (150-450); RED BLOOD COUNT 4.39 10^6/uL (4.30-6.10); WHITE BLOOD COUNT 8.9 10^3/uL (4.0-10.0)
[2019-07-01 06:12] LABS: BLOOD UREA NITROGEN 12 MG/DL (7-18); CALCIUM LEVEL 7.8 MG/DL (8.5-10.1); CARBON DIOXIDE LEVEL 29 MEQ/L (21-32); CHLORIDE LEVEL 112 MEQ/L (98-107); CREATININE FOR GFR 0.89 MG/DL (0.70-1.30); GLOMERULAR FILTRATION RATE > 60.0 (>60); GLUCOSE, FASTING 109 MG/DL (70-100); POTASSIUM SERUM 3.6 MEQ/L (3.5-5.1); SODIUM LEVEL 145 MEQ/L (136-145)
[2019-07-01 08:00] VITALS: BP 129/92
[2019-07-01] MEDS: HEPARIN SOD (PORCINE) 5000 UNITS/ML VIAL (J1644 PER 1000UNITS) SC SCH (08:05)
[2019-07-01] MEDS: MOM 30ML SUSPENSION UDC PO SCH (08:05)
[2019-07-01] MEDS: PANTOPRAZOLE 40MG TAB (PROTONIX) PO SCH (08:06)
[2019-07-01] MEDS: DOCUSATE SODIUM 100 MG CAP PO SCH (08:06)
[2019-07-01] MEDS: ONDANSETRON 4MG/2ML VIAL (J2405) IV PRN (08:22)
--- NOTE | 2019-07-01 08:37 | REP ---
PA and lateral chest: Comparison is 06/30/2019. There is a small infiltrate above the medial aspect of the right hemidiaphragm. In retrospect, this is unchanged. The costophrenic angles are mildly effaced suggestive of small bilateral pleural effusions. There is an unusual faintly visible density in the right paratracheal area, possibly postsurgical artifact, unchanged. Lung allen are otherwise clear. There are sternotomy wires, unchanged. Cardiac size is upper normal. Electronically Signed by Clayton Ayon MD 07/01/2019 08:29 A
[2019-07-01] MEDS ORDERED: PERCOCET PO (09:35)
--- NOTE | 2019-07-01 15:10 | DSES ---
DATE OF ADMISSION: 06/28/2019 DATE OF DISCHARGE: 07/01/2019 DISCHARGE DIAGNOSIS: Thyroid hyperplasia. Official pathology report currently pending. PROCEDURE PERFORMED DURING STAY: Anterior mediastinal mass removal on 06/28/[address] Salinas Gilbert. CONSULTATIONS: None. HOSPITAL COURSE: Mr. Collazo is a 28-year-old male who was admitted on February 25 after he had an anterior mediastinal mass removal by Dr. Salinas Gilbert. There was no complication during this procedure. He was stable. He was admitted to PCU to be clinically monitored. Mass was sent up to pathology which was evaluated under microscope. It was consistent with possible thyroid hyperplasia and fatty cells. Official report is currently pending; the slides were sent to [facility] for further recommendations. While the patient was admitted to the hospital, his pain was controlled with oral medications. He was ambulating with no problems and his SHORTY drain was removed within 24 hours after surgery. Patient had not complications during his stay. On the day of discharge he was advised to followup with Dr. Gilbert in one week with chest x-ray. He had no complaints, was agreeable to all plans stated to him today. DISPOSITION: Discharged home. Activity as tolerated with a maximum of weight he to lift is 10 pounds. DISCHARGE CONDITION: Stable. FOLLOWUP: Followup with Dr. Gilbert in one week with a chest x-ray. ACTIVITY: Light duty, maximum 10 pounds for at least 8 to 12 weeks. DIET: Regular. Time spent on discharge: 50 minutes. My faculty preceptor for this patient encounter was physically present during the encounter and was fully available. All aspects of the patient interview, examination, medical decision making process, and medical care plan development were reviewed and approved by the faculty preceptor. The faculty preceptor is aware and concurs with the plan as stated in the body of this note and will attest to such by his/her co-signature.
== END 2019-07-01 11:47 | disposition home or self-care (01) | DRG 165 ==
LOC: M OR 09:49 → M ICU 17:26 → M PCU 06-29 12:58
PROVIDERS: ADMIT Thoracic Surgery (Cardiothoracic Vascular Surgery); ATTEND Thoracic Surgery (Cardiothoracic Vascular Surgery)
PROC: 0WBC0ZZ Excision of Mediastinum, Open Approach (ICD-10-PCS; principal; 2019-06-28 11:30)
DX: D38.3 Neoplasm of uncertain behavior of mediastinum (principal); E04.9 Nontoxic goiter, unspecified; F41.8 Other specified anxiety disorders; F31.9 Bipolar disorder, unspecified; F17.210 Nicotine dependence, cigarettes, uncomplicated; R22.2 Localized swelling, mass and lump, trunk; Z79.899 Other long term (current) drug therapy

== ENCOUNTER 2019-07-03 10:58 | Inpatient (IN) | payer MEDICARE, MEDICAID ==
[~2019-07-03] VITALS: Ht 182.9 cm; Wt 104.5 kg
[~2019-07-03 10:58] MED LIST changes: -LR 1,000 ML IV ONE; -MUPIROCIN 2% OINT 22 GM TUBE TOP ONE; +PERCOCET PO; -ceFAZolin SOD 2 GM in IV 1 EA IV ONE
[2019-07-03] MEDS ORDERED: AZIT-12 PO (11:16)
[2019-07-03] MEDS ORDERED: PRED20TA PO (11:16)
[2019-07-03 11:35] LABS: BASO # 0.1 10^3/uL (0.0-0.2); BASO % 0.4 % (0.0-1.0); EOS # 0.2 10^3/uL (0.0-0.5); EOS % 1.5 % (0.0-3.0); HEMATOCRIT 45.1 % (42.0-52.0); LYMPH # 2.3 10^3/uL (1.5-5.0); LYMPH % 19.5 % (24.0-44.0); MEAN CORPUSCULAR HEMOGLOBIN 28.4 pg (27.0-33.0); MEAN CORPUSCULAR HGB CONC 33.3 g/dl (32.0-36.5); MEAN CORPUSCULAR VOLUME 85.3 fl (80.0-96.0); MONO # 0.5 10^3/uL (0.0-0.8); MONO % 4.2 % (0.0-5.0); NEUTROPHILS # 8.5 10^3/uL (1.5-8.5); NEUTROPHILS % 73.5 % (36.0-66.0); PLATELET COUNT, AUTOMATED 300 10^3/uL (150-450); RED BLOOD COUNT 5.29 10^6/uL (4.30-6.10); WHITE BLOOD COUNT 11.5 10^3/uL (4.0-10.0)
--- NOTE | 2019-07-03 11:49 | REP ---
CHEST, SINGLE VIEW: Single view of the chest is performed and compared to prior study of 07/01/2019. Bibasilar infiltrates are unchanged since the prior exam. Upper lobes remain clear. Heart is not enlarged. Mediastinal silhouette is unchanged. There are multiple sternal wires present. IMPRESSION: Bibasilar infiltrates are stable. Electronically Signed by Clayton Olvera MD 07/03/2019 06:35 P
[2019-07-03 12:02] LABS: ERYTHROCYTE SEDIMENTATION RATE 11 mm/hr (0-15)
[2019-07-03 12:20] LABS: BLOOD UREA NITROGEN 17 MG/DL (7-18); C REACTIVE PROTEIN QUANTITATIV 0.78 MG/DL (0.00-0.30); CALCIUM LEVEL 9.4 MG/DL (8.5-10.1); CARBON DIOXIDE LEVEL 27 MEQ/L (21-32); CHLORIDE LEVEL 106 MEQ/L (98-107); CK-MB VALUE MASS < 1.0 NG/ML (<3.6); CPK CREATINE PHOSPHOKINASE 84 U/L (39-308); CREATININE FOR GFR 0.87 MG/DL (0.70-1.30); GLOMERULAR FILTRATION RATE > 60.0 (>60); GLUCOSE, FASTING 92 MG/DL (70-100); MB/CK RELATIVE INDEX 1.19 (< OR =4); POTASSIUM SERUM 4.5 MEQ/L (3.5-5.1); SODIUM LEVEL 139 MEQ/L (136-145); TROPONIN I < 0.02 NG/ML (< 0.10)
[2019-07-03] MEDS ORDERED: ISOVUE-370 76% 100ML VIAL (Q9967) As Ordered ONE (12:30)
[2019-07-03] MEDS ORDERED: MORPHINE 2 MG/ML 1ML VIAL (J2270) IV PRN (12:30)
[2019-07-03] MEDS ORDERED: LEVALBUTEROL 1.25 MG/0.5 ML CONCENTRATE NEB NEB PRN (13:00)
[2019-07-03] MEDS ORDERED: ACETAMINOPHEN TAB 650MG DOSE (2X325MG) PO PRN (13:00)
[2019-07-03] MEDS ORDERED: KETOROLAC 30 MG/ML VIAL (J1885) IV ONE (13:00)
[2019-07-03] MEDS ORDERED: NORCO, ANEXSIA 5/325MG TABLET (HYDROcodone/ACETAMINOPHEN) PO PRN (13:00)
[2019-07-03] MEDS ORDERED: BISACODYL 10 MG SUPP PR PRN (13:00)
[2019-07-03] MEDS ORDERED: ONDANSETRON 4MG/2ML VIAL (J2405) IV ONE (13:15)
[2019-07-03] MEDS ORDERED: OXYC1TAB23 PO (13:27)
[2019-07-03] MEDS ORDERED: KCL 20MEQ IN D5/NS 1000ML 1,000 ML IV SCH (14:00)
[2019-07-03] MEDS: MOM 30ML SUSPENSION UDC PO SCH (14:06)
--- NOTE | 2019-07-03 14:06 | REP ---
CT ANGIOGRAM OF THE CHEST: TECHNIQUE: Axial contrast enhanced images from the thoracic inlet to the upper abdomen using 100 mL Isovue 370 intravenous contrast material with multiplanar reformations. There is no CT evidence of pulmonary embolism. There is no thoracic aortic aneurysm or dissection. Sternotomy wires are present with mild anterior mediastinal edema. Heart is normal in size. There is no pericardial effusion. There are small bilateral pleural effusions. There are dependent areas of consolidative atelectasis or infiltrate bilaterally. Right hemidiaphragm is somewhat elevated. No adenopathy is seen. IMPRESSION: No CT evidence of pulmonary embolism. Small bilateral effusions. Bibasilar atelectasis/infiltrate. Electronically Signed by Clayton Olvera MD 07/03/2019 06:40 P
[2019-07-03 14:20] VITALS: BP 136/75
[2019-07-03] MEDS: PANTOPRAZOLE 40MG TAB (PROTONIX) PO SCH (14:23)
[2019-07-03] MEDS: LEVALBUTEROL 1.25 MG/0.5 ML CONCENTRATE NEB NEB SCH ×2 (14:26→20:16)
--- NOTE | 2019-07-03 14:51 | PHACANCOPD ---
PHARMACY VANCOMYCIN DOSING Pt Demographics Demographics Patient Age:28 , Weight:102.400 , Gender: male Adjusted Body Weight Date: 07/03/19, Adjusted Body Weight: Kg Events Past 24 Hours Events Past 24 Hours: YES: Elevation in WBC; NO: Dialysis, Diuretic Therapy, Change in CrCl, Fever, Pending Diagnostics, Pending Procedures, Other Vancomycin Vancomycin indication: pneumonia Vancomycin Target Ranges: 15-20 mcg/ml Vancomycin Load Y/N: Yes Load Dose Date Time Vancomycin Load Dose: 2g Date: 07/02 Time: ~15:00 Vancomycin Dose Date: 07/03/19. Current Vancomycin Dose: [1g IV q8h @22] Intermittent Dosing?: No Labs Labs Item Value Date Time White Blood Count 10.8 10^3/uL H 06/30/19 0519 White Blood Count 8.9 10^3/uL 07/01/19 0507 White Blood Count 11.5 10^3/uL H 07/03/19 1124 Micro Microbiology 07/03/19 Blood Culture, Received Pending 07/03/19 Blood Culture, Received Pending Creatinine Clearance Date:07/03/19. Creatinine Clearance: [>100 ml/min]. Pending Labs Vanco trough scheduled 07/03 @15:00 Assessment and Plan Maintaining Current Dose?: Yes Reason for dose change: No Dose Change Pharmacist Note Pharmacist Note Date: 07/03/19. Pharmacist note: pt has been started on vancomycin for pneumonia. He was recently admitted to have a mass removed from his chest ~4 days ago. He was treated preop with Ancef 2g followed by 1g IV q8h post op x2 days. He has not been on vancomycin at our facility in the past. Blood cultures from this admission are pending, he has no notable cx hx at this facility. I have started him on a vancomycin 2g IV loading dose, followed by 1g IV q8h. I have a trough scheduled for tomorrow afternoon. We will continue to monitor and make adjustments as necessary. Renard Rosas Pharm.D. Jul 03, 2019 14:51
[2019-07-03] MEDS ORDERED: VANCOMYCIN HCL 1,000 MG, VIAL MATE ADAPTER 1 EACH in D5W 250 ML IV ONE (15:00)
[2019-07-03] MEDS: VANCOMYCIN HCL 1,000 MG, VIAL MATE ADAPTER 1 EACH in D5W 250 ML IV SCH ×2 (15:39→23:38)
[2019-07-03] MEDS: PERCOCET 5MG/325MG TAB PO PRN ×2 (16:12→20:43)
--- NOTE | 2019-07-03 17:37 | HPE ---
DATE OF ADMISSION: 07/03/2019 ADMITTING PHYSICIAN: Dr. Salinas Gilbert CHIEF COMPLAINT: Chest pain. HISTORY OF PRESENT ILLNESS: This is a 28-year-old male with a pertinent past medical history of recent excisional mediastinal mass via yin median sternotomy on 06/28/2019, who was recently just discharged on 07/01/2019. He is coming to the emergency room today for a sudden onset of chest pain, which started early this morning. He describes the chest pain as sharp in nature, located on the left side of his sternum that will radiate towards his neck. He rated the pain at 10 out of 10 and it was associated with nausea, lightheadedness, and dizziness. He took one tablet of [place], which normally resolves his pain but not this time. He came to the emergency room because his symptoms did not resolve and his chest pain continued to progress. He denies any fevers, chills, night sweats, swelling around his chest. He admits to having blood tinged sputum and his cough, but nothing more significant than normal since his surgery. He denies any abdominal pain, muscle aches, worsening arthritis or change in mood. In the emergency room, electrocardiogram (EKG) showed sinus rhythm with 73 beats per minute and early repolarization. His [place] interval and QRS interval were within normal limits. His cardiac markers were negative, but his C-reactive protein was slightly elevated at 0.78. He had a slight leukocytosis at 11.5 with a left shift of neutrophils at 73.5. His hemoglobin and hematocrit and platelets were within normal limits. When questioned about his home medications, the patient states that when he was discharged that [facility] sent him home with azithromycin, prednisone, as well as hydrocodone. He states his prednisone and azithromycin were prescribed to him on 06/19/2019 when he came to the emergency room for evaluation for upper respiratory like symptoms. He never picked up the prescription for he did not have insurance at that time and he believes that is why [facility] sent the prescription to him. He did not think anything of it and that is why he continued the medications as prescribed when it was sent to him. Dr. Gilbert was then called for admission because of chest pain. PAST MEDICAL HISTORY: 1. Recent excisional mediastinal mass via yin median sternotomy on 06/28/2019, official pathology pending, possible thyroid hyperplasia. 2. Possible bipolar disorder. SURGICAL HISTORY: 1. Hernia repair as a baby. HOME MEDICATIONS: - azithromycin 250 mg by mouth daily #6 tablets - Percocet one tablet by mouth every 4 hours as needed for pain - prednisone 20 mg by mouth daily, #5 tablets ALLERGIES: No known drug allergies. SOCIAL HISTORY: He currently lives with his girlfriend and his girlfriend's mother. 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 He denies any illicit drug use. Admits to social alcohol use. He is a current smoker, which he obtains from the [facility] and smokes about a half of a pack per day since as a teenager. He has multiple dogs -- Chihuahua and Chihuahua mix, as well as a cat but not birds. No recent travel but remote history of going to [place] in the past. CODE STATUS: FULL CODE. FAMILY HISTORY: No known medical problems in the father. Unsure of mother, they are estranged. REVIEW OF SYSTEMS: CONSTITUTIONAL: Denies any weight change, fevers, chills, night sweats, fatigue or malaise. HEENT: Denies hearing changes, visual changes, nasal congestion. Admits to rhinorrhea, possible postnasal drip but no difficulty swallowing. CARDIOVASCULAR: Admits to chest pain, shortness of breath with chest pain only. No paroxysmal nocturnal dyspnea. No dyspnea on exertion. No orthopnea. No claudication. No lower extremity edema or palpitations. RESPIRATORY: Admits to blood tinged sputum production. No wheezing. No dyspnea unless there is chest pain and then he has some shortness of breath only. Admits to being a current smoker. GASTROINTESTINAL: Admits to nausea with only chest pain, none currently. Denies vomiting, diarrhea. Admits to constipation, last bowel movement was on Thursday but is on some over the counter bowel care. Denies abdominal pain, heartburn, anorexia, dysphagia or blood in the stool. GENITOURINARY: Denies dysuria or increased urinary frequency or hematuria. MUSCULOSKELETAL: Denies malaise or joint swelling. INTEGUMENTARY: Denies any new skin lesions. NEUROLOGIC: Denies any weakness, numbness, paresthesias, syncope. Admits to headache and dizziness when pain is not controlled, not at the current time. PSYCHIATRIC: Admits to a bipolar history. HEMATOLOGY: Denies easy bruising, bleeding or lymphadenopathy. ENDOCRINE: Denies any polyuria or polydipsia. PHYSICAL EXAMINATION: VITAL SIGNS: Temperature 96.4, pulse 80, respirations 18, blood pressure 129/64 (85), pulse oximetry 92% on room air. GENERAL: This is a very pleasant 28-year-old male who is sitting up in bed, awake, alert and oriented, speaking in complete sentences, no acute distress, appropriately answering questions. No respiratory muscle use. HEENT: Atraumatic, normocephalic. Pupils are equal, round, reactive. Moist mucous membranes. No lymphadenopathy. No jugular venous distention (JVD). No crepitus appreciated. CARDIOVASCULAR: Regular rate and rhythm. S1, S2 present. No audible murmurs, rubs or gallops. RESPIRATORY: Clear to auscultation in the upper lobes bilaterally. Diminished breath sounds bilaterally in the lower bases. E-to-A egophony with dullness to percussion at the bases as well. No wheezing or rhonchi appreciated. CHEST: Healing mediastinal/mediasternal surgical wound appreciated, slightly tender to touch on the left side versus right. No induration. No swelling noted. Dried blood appreciated over the surgical wound. No discharge. No increased erythema noted. ABDOMEN: Positive bowel sounds in all four quadrants. Slightly distended. No tenderness on palpation. EXTREMITIES: No lower extremity edema or calf tenderness. NEUROLOGIC: No focal deficits. PSYCHIATRIC: Appropriate. LABORATORY DATA: Hematology: WBC 11.5, hemoglobin 15.0, hematocrit 45.1, platelets 300. Chemistry: Sodium 139, potassium 4.5, chloride 106, carbon dioxide 27, anion gap 6, BUN 17, creatinine 0.87, fasting glucose 92, calcium 9.4. Cardiac markers negative. Troponin I is less than 0.02. C-reactive protein slightly elevated at 0.78. ESR 11. Microbiology: Blood cultures times two currently pending, 10 minutes apart. IMAGING: Chest x-ray shows bibasilar infiltrates, which are stable, seen on 07/01/2019 as well prior to discharge. CT angio of the chest negative for pulmonary embolism, small bilateral effusion, bibasilar atelectasis/infiltrates, mild anterior mediastinal edema, normal heart size, no pericardial effusion. ASSESSMENT AND PLAN: This is a very pleasant 28-year-old male with a pertinent past medical history of recent excisional mediastinal mass via yin median sternotomy on 06/28/2019 who was recently discharged from the hospital on 07/01/2019 and is presenting today for chest pain. 1. Chest pain, possibly secondary to perioperative pain. In the emergency room, his EKG was negative for any changes. It was sinus rhythm with normal early repolarization. Heart rate was normal at 73 beats per minute. Cardiac markers were negative times one. CT angio shows that he does have bibasilar infiltrates and anterior mediastinal edema, negative for pulmonary embolism. He noticed that his pain improved after the morphine 2 mg IV and ketorolac 30 mg IV times one. Because of the recent surgery that he just had within the last week and the manipulation of the sternum, we have to treat for mediastinitis. For possible pneumonia, we started him on vancomycin 1000 mg every 12 hours and have pharmacy consulted to adjust dosing as needed. We have placed methicillin resistant Staphylococcus aureus (MRSA) screen and if negative, we can deescalate antibiotics as needed. For pain control while admitted, we have ketorolac, Tylenol, [place] and Percocet on board. To help with bowel care as well, we have Dulcolax suppository, milk of magnesia, as well as Colace on board, which he can possibly get from opiate induced constipation. We have placed incentive spirometry, as well as PEP therapy on board to help with atelectasis. 2. Atelectasis/infiltrate on CT angio. We have put incentive spirometry and PEP on board, as well as covering with vancomycin because of recent surgery and recent discharge from the hospital in the last 2 days. Deescalate antibiotics depending on methicillin resistant Staphylococcus aureus (MRSA) screen. We will trend with daily chest x-ray and complete blood count (CBC). 3. Opiate induced constipation. Bowel care with Colace, Dulcolax suppository and milk of magnesium is on board. We will continue to monitor. 4. Code status. FULL CODE. 5. Deep vein thrombosis (DVT) prophylaxis. Heparin 5000 units subcutaneously every 12 hours as needed. DISPOSITION: The patient will be admitted to progressive care unit (PCU) and we will expect at least one to two midnights.
[2019-07-03] MEDS: KETOROLAC 30 MG/ML VIAL (J1885) IV SCH ×2 (17:46→23:38)
[2019-07-03 20:00] VITALS: BP 142/65
[2019-07-03] MEDS: DOCUSATE SODIUM 100 MG CAP PO SCH (20:42)
[2019-07-03] MEDS: HEPARIN SOD (PORCINE) 5000 UNITS/ML VIAL (J1644 PER 1000UNITS) SC SCH (20:42)
--- NOTE | 2019-07-03 20:47 | ECGEPIP ---
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
[2019-07-04] VITALS: BP 128/58
[2019-07-04] MEDS: LEVALBUTEROL 1.25 MG/0.5 ML CONCENTRATE NEB NEB SCH ×4 (02:01→20:47)
[2019-07-04 04:00] VITALS: BP 126/59
[2019-07-04 05:38] LABS: BASO # 0.1 10^3/uL (0.0-0.2); BASO % 0.5 % (0.0-1.0); EOS # 0.2 10^3/uL (0.0-0.5); EOS % 1.9 % (0.0-3.0); HEMATOCRIT 40.6 % (42.0-52.0); HEMOGLOBIN 13.4 g/dl (13.5-17.5); LYMPH # 3.8 10^3/uL (1.5-5.0); LYMPH % 34.1 % (24.0-44.0); MEAN CORPUSCULAR HEMOGLOBIN 28.4 pg (27.0-33.0); MONO # 0.8 10^3/uL (0.0-0.8); MONO % 7.2 % (0.0-5.0); NEUTROPHILS # 6.1 10^3/uL (1.5-8.5); NEUTROPHILS % 55.5 % (36.0-66.0); PLATELET COUNT, AUTOMATED 273 10^3/uL (150-450); RED BLOOD COUNT 4.72 10^6/uL (4.30-6.10); WHITE BLOOD COUNT 11.1 10^3/uL (4.0-10.0)
[2019-07-04 05:54] LABS: BLOOD UREA NITROGEN 20 MG/DL (7-18); CALCIUM LEVEL 8.6 MG/DL (8.5-10.1); CARBON DIOXIDE LEVEL 28 MEQ/L (21-32); CHLORIDE LEVEL 107 MEQ/L (98-107); CREATININE FOR GFR 0.95 MG/DL (0.70-1.30); GLOMERULAR FILTRATION RATE > 60.0 (>60); GLUCOSE, FASTING 97 MG/DL (70-100); POTASSIUM SERUM 3.7 MEQ/L (3.5-5.1); SODIUM LEVEL 139 MEQ/L (136-145)
[2019-07-04] MEDS: KETOROLAC 30 MG/ML VIAL (J1885) IV SCH ×4 (05:59→23:41)
[2019-07-04] MEDS: PERCOCET 5MG/325MG TAB PO PRN ×3 (07:40→20:42)
[2019-07-04 08:00] VITALS: BP 124/63
[2019-07-04] MEDS: PANTOPRAZOLE 40MG TAB (PROTONIX) PO SCH (08:10)
[2019-07-04] MEDS: DOCUSATE SODIUM 100 MG CAP PO SCH ×2 (08:10→20:36)
[2019-07-04] MEDS: VANCOMYCIN HCL 1,000 MG, VIAL MATE ADAPTER 1 EACH in D5W 250 ML IV SCH (08:10)
[2019-07-04] MEDS: MOM 30ML SUSPENSION UDC PO SCH (08:10)
[2019-07-04] MEDS: HEPARIN SOD (PORCINE) 5000 UNITS/ML VIAL (J1644 PER 1000UNITS) SC SCH ×2 (08:11→20:37)
--- NOTE | 2019-07-04 08:32 | REP ---
Chest x-ray: Two views. History: Postop mediastinal mass. Comparison chest x-ray July 03, 2019. Findings: There is bibasilar plate-like atelectasis. Median sternotomy wires are noted. There is blunting of the posterior pleural angles bilaterally on the lateral radiograph indicating small quantities of pleural fluid. No new infiltrate is seen. Findings are essentially unchanged from yesterday's radiograph. Electronically Signed by Stef Torres MD 07/04/2019 08:24 A
[2019-07-04 12:00] VITALS: BP 124/63
[2019-07-04] MEDS: ONDANSETRON 4MG/2ML VIAL (J2405) IV PRN (12:14)
[2019-07-04 16:00] VITALS: BP 117/59
[2019-07-04] MEDS ORDERED: VANCOMYCIN HCL 500 MG in D5W MINI-BAG PLUS 100 ML IV SCH (17:00)
--- NOTE | 2019-07-04 18:01 | IPN ---
DATE: 07/04/2019 Mr. Collazo is seen and examined this morning during bedside rounds. He states that he is feeling much better this morning. His pain is a little better controlled. He rates that pain at 4/10 at this current time. He states the oral medication has been helping him. He did have a question about possibly being discharged on Zofran outpatient, for he does have nausea episodes. He has no other complaints at this current time. He is ambulating well in the room. He is going to the bathroom with no problems as well. No overnight events were reported by nursing. No telemetry events were reported as well. PHYSICAL EXAMINATION: VITAL SIGNS: Temperature 97.8, pulse 68, respirations 18, blood pressure 117/59 (78), pulse oximetry 92% on room air. GENERAL: This is a very pleasant 28-year-old male who does not appear in acute distress, sitting in the bed, alert and oriented times three, speaking in complete sentences, appropriately answering questions. No respiratory muscle use. HEENT: Atraumatic, normocephalic. Pupils equal, round, and reactive. Moist mucous membranes. No lymphadenopathy. No jugular venous distention (JVD) noted. No crepitance appreciated. CARDIOVASCULAR: Regular rate and rhythm, S1, S2 sounds present. No audible murmurs, rubs, or gallops. RESPIRATORY: Clear to auscultate bilaterally. Continues to have diminished breath sounds bilaterally at the lower bases only. No E to A egophony with dullness to percussion at this time. No wheezing or rhonchi appreciated. CHEST: Healing medial sternal wound appreciated. Slightly tender to touch on the left side versus right but continues to have no induration. No swelling. Dry blood appreciated all over the surgical wound but no discharge. No foul smell appreciated. ABDOMEN: Slightly distended abdomen. No tenderness to palpation. Positive bowel sounds in all four quadrants. EXTREMITIES: No lower extremity edema. NEUROLOGIC: No focal deficits. PSYCHIATRIC: Appropriate. LABORATORY DATA: WBC 11.1, hemoglobin 13.4, hematocrit 40.6, platelets 273. Chemistries: Sodium 139, potassium 3.7, chloride 107, carbon dioxide 28, anion gap 4, BUN 20, creatinine 0.95, fasting glucose 97. Serology: MRSA trough is negative. Microbiology: Blood cultures times two negative times 24 hours IMAGING: Chest x-ray this morning: Bibasilar plate-like atelectasis. Median sternotomy wires are noted. Blunting of the posterior pleural angles bilaterally. The lateral radiograph indicates small quantity of pleural fluid. No new infiltrates seen. Findings are unchanged from yesterday. ASSESSMENT AND PLAN: This is a very pleasant 28-year-old male with a pertinent past medical history of recent thyroid hyperplasia removal via yin median sternotomy on 06/28/2019, who was recently discharged on 07/01/2019 who presented for chest pain. 1. Pain. Perioperative chest pain, currently controlled with oral pain regimen. We will continue with his pain management as well as upon discharge. Patient was not taking any anti-inflammatories for breakthrough pain at home, and I educated him to use nonsteroidal anti-inflammatory drugs (NSAIDs) and Tylenol as needed to help with pain when [place] is not due. Will continue as such. Because of the recent surgery he had, we did have him on vancomycin, which we will discontinue, because the methicillin-resistant Staphylococcus aureus (MRSA) screen is negative. We will cover him for skin infection with Keflex 500 mg four times a day for the next 10 days, which he will continue upon discharge. 2. Atelectasis on chest x-ray. We will continue with incentive spirometry and PEP therapy while admitted. Chest x-ray this morning was unchanged from yesterday. Lung exam from today was benign. 3. Opiate-induced constipation. Continue with bowel care, Colace, Dulcolax suppository, and milk of magnesia. 4. Code status. Full code. 5. Deep vein thrombosis (DVT) prophylaxis with heparin subcutaneous. DISPOSITION: Possible discharge in the next 24-48 hours. We will monitor overnight for clinical improvement.
[2019-07-04] MEDS: CEPHALEXIN 500 MG CAP PO SCH ×2 (18:14→20:37)
[2019-07-04 20:00] VITALS: BP 130/69
[2019-07-05] VITALS: BP 127/66
[2019-07-05] MEDS: PERCOCET 5MG/325MG TAB PO PRN ×3 (01:03→12:55)
[2019-07-05] MEDS: LEVALBUTEROL 1.25 MG/0.5 ML CONCENTRATE NEB NEB SCH ×2 (01:05→07:14)
[2019-07-05 04:00] VITALS: BP 128/59
[2019-07-05 05:19] LABS: BASO # 0.1 10^3/uL (0.0-0.2); BASO % 0.6 % (0.0-1.0); EOS # 0.3 10^3/uL (0.0-0.5); EOS % 2.7 % (0.0-3.0); HEMATOCRIT 39.2 % (42.0-52.0); LYMPH # 3.9 10^3/uL (1.5-5.0); LYMPH % 42.5 % (24.0-44.0); MEAN CORPUSCULAR HEMOGLOBIN 28.7 pg (27.0-33.0); MEAN CORPUSCULAR HGB CONC 33.2 g/dl (32.0-36.5); MEAN CORPUSCULAR VOLUME 86.5 fl (80.0-96.0); MONO # 0.6 10^3/uL (0.0-0.8); MONO % 6.8 % (0.0-5.0); NEUTROPHILS # 4.3 10^3/uL (1.5-8.5); NEUTROPHILS % 46.2 % (36.0-66.0); PLATELET COUNT, AUTOMATED 256 10^3/uL (150-450); RED BLOOD COUNT 4.53 10^6/uL (4.30-6.10); WHITE BLOOD COUNT 9.3 10^3/uL (4.0-10.0)
[2019-07-05] MEDS: KETOROLAC 30 MG/ML VIAL (J1885) IV SCH ×2 (05:21→12:00)
[2019-07-05 05:45] LABS: BLOOD UREA NITROGEN 20 MG/DL (7-18); CALCIUM LEVEL 8.1 MG/DL (8.5-10.1); CARBON DIOXIDE LEVEL 29 MEQ/L (21-32); CHLORIDE LEVEL 111 MEQ/L (98-107); GLOMERULAR FILTRATION RATE > 60.0 (>60); GLUCOSE, FASTING 92 MG/DL (70-100); POTASSIUM SERUM 3.9 MEQ/L (3.5-5.1); SODIUM LEVEL 142 MEQ/L (136-145)
[2019-07-05] MEDS ORDERED: ZOFR4TAB16 PO (07:32)
[2019-07-05] MEDS ORDERED: CEPH500C PO (07:32)
[2019-07-05 08:00] VITALS: BP 139/70
[2019-07-05] MEDS: DOCUSATE SODIUM 100 MG CAP PO SCH (08:48)
[2019-07-05] MEDS: HEPARIN SOD (PORCINE) 5000 UNITS/ML VIAL (J1644 PER 1000UNITS) SC SCH (08:48)
[2019-07-05] MEDS: CEPHALEXIN 500 MG CAP PO SCH ×2 (08:48→12:50)
[2019-07-05] MEDS: PANTOPRAZOLE 40MG TAB (PROTONIX) PO SCH (08:48)
[2019-07-05] MEDS: MOM 30ML SUSPENSION UDC PO SCH (08:48)
[2019-07-05] MEDS: ONDANSETRON 4MG/2ML VIAL (J2405) IV PRN (08:49)
--- NOTE | 2019-07-05 10:13 | REP ---
CHEST, TWO VIEWS: Comparison 07/04/2019 Two views of the chest are performed. There is mild elevation of the right hemidiaphragm unchanged. Bibasilar infiltrates and effusions are unchanged. The heart and mediastinum are unchanged. There are multiple sternal wires present. IMPRESSION: Stable exam. Electronically Signed by Clayton Olvera MD 07/05/2019 07:51 P
--- NOTE | 2019-07-05 19:07 | DSES ---
DATE OF ADMISSION: 07/03/2019 DATE OF DISCHARGE: 07/05/2019 DISCHARGE DIAGNOSES: 1. Chest pain, possibly secondary to uncontrolled perioperative pain. 2. Atelectasis on chest x-ray. 3. Opioid-induced constipation. PROCEDURE PERFORMED: None. CONSULTANTS: None. HOSPITAL COURSE: Mr. Collazo is a very pleasant 28-year-old male who was admitted on July 02 because of chest pain that occurred morning of presentation. He described the pain as sharp in nature that was radiating toward his neck. He states normally his pain control medications at home provided relief, but because this did not provide any relief, he came to the emergency room (ER) for further evaluation. Chest pain workup was coincidentally negative. He was started on oral narcotics and vancomycin to cover for methicillin-resistant Staphylococcus aureus (MRSA) pneumonia as well as mediastinitis because of the recent discharge on June 11. During his stay, his MRSA was negative, so his antibiotics were de-escalated to Keflex 500 mg twice a day, which he will continue on discharge for a total of 10 days of antibiotic therapy. We educated the patient on how to use his pain control medication, such as using Tylenol and Aleve. for breakthrough pain and [place] for uncontrolled pain. He was agreeable to the plan stated to him. Only new medications started on discharge today was Zofran for nausea and Keflex for antibiotic coverage. No other changes were made. OBJECTIVE: PHYSICAL EXAMINATION: VITAL SIGNS: Temperature 97.9, heart rate 66, respirations 18, blood pressure 128/59 (82), 92% on room air. Intake total 1790 mL. Output total 1100 mL. Balance of +690 mL. GENERAL: This is a very pleasant 28-year-old male who does not appear in any acute distress, sitting up in bed, alert and oriented times three, speaking in complete sentences, appropriately answering questions. No respiratory muscle use. HEENT: Atraumatic, normocephalic. Pupils equal, round, and reactive. Mucous membranes. No thrush. No lymphadenopathy. No jugular venous distention (JVD) noted. No crepitus noted. CARDIOVASCULAR: Regular rate and rhythm. S1, S2 sounds are present. No audible murmurs, rubs, or gallops. RESPIRATORY: Clear to auscultation bilaterally. Continues to have diminished breath sounds bilaterally. No E to A egophony or dullness to percussion. No wheezing or rhonchi appreciated. CHEST: Dry blood appreciated over the medial sternal wound. Tenderness improved on the left side. No induration noted. No swelling. No foul smell noted as well. ABDOMEN: Continues to be slightly distended but no tenderness to palpation. Positive bowel sounds in the lower quadrants. EXTREMITIES: No lower extremity edema or calf tenderness. NEUROLOGIC: No focal deficits. PSYCHIATRIC: Appropriate. LABORATORY DATA: WBC 9.3, hemoglobin 13.0, hematocrit 39.2, platelets 256. Chemistry: Sodium 142, potassium 3.9, chloride 111, carbon dioxide 29, BUN 20, creatinine 0.90, glucose 92. DISPOSITION: Discharge home. DISCHARGE CONDITION: Improved and stable. PROGNOSIS: Fair. FOLLOWUP: With Dr. Gilbert as scheduled on July 10, with chest x-ray. ACTIVITY: Light activity. Do not lift greater than 10 pounds until followup with Dr. Gilbert. DIET: As prior to admission. TIME SPENT ON DISCHARGE: 35 minutes.
== END 2019-07-05 13:12 | disposition home or self-care (01) | DRG 948 ==
LOC: M ED 10:58 → M ED INP 13:00 → ENRESERV 13:43 → M PCU 14:04
PROVIDERS: ADMIT Thoracic Surgery (Cardiothoracic Vascular Surgery); ATTEND Thoracic Surgery (Cardiothoracic Vascular Surgery)
DX: G89.18 Other acute postprocedural pain (principal); J98.11 Atelectasis; K59.03 Drug induced constipation; T40.2X5A Adverse effect of other opioids, initial encounter; Z79.899 Other long term (current) drug therapy; F17.210 Nicotine dependence, cigarettes, uncomplicated

== ENCOUNTER → 2019-07-11 | Outpatient (CLI) | payer MEDICARE, MEDICAID ==
[~2019-07-11] MED LIST changes: +AZIT-12 PO; +CEPH500C PO; +OXYC1TAB23 PO; +PRED20TA PO; +ZOFR4TAB16 PO
--- NOTE | 2019-07-11 12:08 | REPPI ---
PA and lateral chest: Comparison is E 20. There are bands of discoid atelectasis inferomedially in each lung, slightly increased from the comparison study. Lung allen otherwise clear. No pleural effusions are identified. There are sternotomy wires, unchanged. No mediastinal widening. The kortney, and skeletal structures are unremarkable. Impression: Increasing bands of discoid atelectasis inferomedially bilaterally. Electronically Signed by Clayton Ayon MD 07/11/2019 11:59 A
== END ==
LOC: M PLAIMG 11:16
PROVIDERS: ATTEND Thoracic Surgery (Cardiothoracic Vascular Surgery)
DX: J98.11 Atelectasis (principal)

== ENCOUNTER 2019-09-28 08:33 | Inpatient (IN) | payer MEDICAID, MEDICARE ==
[~2019-09-28] VITALS: Ht 182.9 cm; Wt 100.2 kg
[2019-09-28] VITALS (12 sets, daily range): BP systolic 107–160; BP diastolic 53–77
[2019-09-28] MEDS ORDERED: NS 1,000 ML IV ONE (09:15)
[2019-09-28 09:34] LABS: BASO % 0.4 % (0.0-1.0); EOS # 0.2 10^3/uL (0.0-0.5); EOS % 1.9 % (0.0-3.0); HEMATOCRIT 46.2 % (42.0-52.0); HEMOGLOBIN 15.3 g/dl (13.5-17.5); LYMPH # 2.4 10^3/uL (1.5-5.0); LYMPH % 22.1 % (24.0-44.0); MEAN CORPUSCULAR HEMOGLOBIN 28.3 pg (27.0-33.0); MEAN CORPUSCULAR HGB CONC 33.1 g/dl (32.0-36.5); MEAN CORPUSCULAR VOLUME 85.4 fl (80.0-96.0); NEUTROPHILS # 7.2 10^3/uL (1.5-8.5); NEUTROPHILS % 66.3 % (36.0-66.0); PLATELET COUNT, AUTOMATED 269 10^3/uL (150-450); RED BLOOD COUNT 5.41 10^6/uL (4.30-6.10); WHITE BLOOD COUNT 10.8 10^3/uL (4.0-10.0)
[2019-09-28] MEDS ORDERED: ISOVUE-370 76% 100ML VIAL As Ordered ONE (09:43)
--- NOTE | 2019-09-28 09:44 | REP ---
Chest x-ray: Two views. History: Central chest pain. Shortness of breath. COMPARISON CHEST X-RAY: July 05, 2019. FINDINGS: Patient is status post prior median sternotomy. Cardiac enlargement is again noted. Cardiothoracic ratio today measures 55.6%. Right hemidiaphragm is slightly elevated. There is improved aeration in the bases today. No acute infiltrate is appreciated. The pleural angles are sharp. Pulmonary vasculature is not increased. IMPRESSION: Cardiomegaly prior sternotomy. Otherwise no acute disease. Electronically Signed by Stef Torres MD 09/28/2019 11:43 A
[2019-09-28 09:59] LABS: ERYTHROCYTE SEDIMENTATION RATE 9 mm/hr (0-15)
[2019-09-28 10:00] LABS: C REACTIVE PROTEIN QUANTITATIV 4.94 MG/DL (0.00-0.30); CK-MB VALUE MASS < 1.0 NG/ML (<3.6); CPK CREATINE PHOSPHOKINASE 83 U/L (39-308); TROPONIN I < 0.02 NG/ML (< 0.10)
[2019-09-28 10:28] LABS: NT-PRO BNP 21 PG/ML (<125)
[2019-09-28] MEDS ORDERED: BISACODYL 10 MG SUPP PR PRN (10:45)
[2019-09-28] MEDS ORDERED: LEVALBUTEROL 1.25 MG/0.5 ML CONCENTRATE NEB NEB PRN (10:45)
[2019-09-28] MEDS ORDERED: ACETAMINOPHEN TAB 650MG DOSE (2X325MG) PO PRN (10:45)
--- NOTE | 2019-09-28 11:16 | REP ---
CT ANGIOGRAM OF THE CHEST: TECHNIQUE: Axial contrast-enhanced images from the thoracic inlet to the upper abdomen using 100 mL Isovue-370 intravenous contrast material with multiplanar reformations. There is no CT evidence of pulmonary embolism. There is no thoracic aortic aneurysm or dissection. There is a moderate pericardial effusion, which is new compared to the prior study of 07/03/2019. There are tiny bilateral pleural effusions. There is mild patchy atelectasis or infiltrate in each lung base, left greater than right. No significantly enlarged lymph nodes are seen. The visualized upper abdominal structures are unremarkable. IMPRESSION: Moderate pericardial effusion. Tiny bilateral pleural effusions with mild patchy atelectasis/infiltrate of each lower lobe, left greater than right. No evidence of pulmonary embolism or aortic dissection. Electronically Signed by Clayton Olvera MD 09/28/2019 12:20 P
[2019-09-28 11:43] LABS: INR 1.2; PROTHROMBIN TIME 14.9 SECONDS (11.8-14.0)
[2019-09-28 11:52] LABS: BLOOD UREA NITROGEN 9 MG/DL (7-18); CALCIUM LEVEL 8.2 MG/DL (8.5-10.1); CARBON DIOXIDE LEVEL 24 MEQ/L (21-32); CHLORIDE LEVEL 111 MEQ/L (98-107); CREATININE FOR GFR 0.72 MG/DL (0.70-1.30); GLOMERULAR FILTRATION RATE > 60.0 (>60); GLUCOSE, FASTING 95 MG/DL (70-100); POTASSIUM SERUM 3.8 MEQ/L (3.5-5.1); SODIUM LEVEL 140 MEQ/L (136-145)
[2019-09-28] MEDS: KETOROLAC 30 MG/ML 1ML VIAL IV SCH ×2 (12:13→18:19)
[2019-09-28 13:11] LABS: RHEUMATOID FACTOR QUANT < 10.0 IU/ML (<15.0); THYROID STIMULATING HORMONE 0.946 uIU/ML (0.358-3.740)
[2019-09-28] MEDS ORDERED: COLCHICINE 0.6 MG TAB PO ONE (13:30)
[2019-09-28] MEDS: KCL 20MEQ IN D5/NS 1000ML 1,000 ML IV SCH (13:47)
[2019-09-28] MEDS: MOM 30ML SUSPENSION UDC PO SCH (13:47)
[2019-09-28] MEDS ORDERED: LEVALBUTEROL 1.25 MG/0.5 ML CONCENTRATE NEB NEB SCH (14:00)
[2019-09-28 14:13] LABS: ALBUMIN 3.2 GM/DL (3.2-5.2); ALT/SGPT 24 U/L (12-78); BILIRUBIN,TOTAL 0.4 MG/DL (0.2-1.0); BLOOD UREA NITROGEN 9 MG/DL (7-18); CALCIUM LEVEL 8.2 MG/DL (8.5-10.1); CARBON DIOXIDE LEVEL 26 MEQ/L (21-32); CHLORIDE LEVEL 111 MEQ/L (98-107); CHOLESTEROL LEVEL 135 MG/DL (< 200); CK-MB VALUE MASS < 1.0 NG/ML (<3.6); CPK CREATINE PHOSPHOKINASE 67 U/L (39-308); CREATININE FOR GFR 0.75 MG/DL (0.70-1.30); FERRITIN 131 NG/ML (26-388); GLOMERULAR FILTRATION RATE > 60.0 (>60); GLUCOSE, FASTING 86 MG/DL (70-100); LDH LACTATE DEHYDROGENASE 153 U/L (87-241); MB/CK RELATIVE INDEX 1.49 (< OR =4); PHOSPHORUS LEVEL 2.5 MG/DL (2.5-4.9); POTASSIUM SERUM 3.9 MEQ/L (3.5-5.1); SODIUM LEVEL 140 MEQ/L (136-145); TOTAL PROTEIN 6.2 GM/DL (6.4-8.2); TRIGLYCERIDES LEVEL 94 MG/DL (<150); TROPONIN I < 0.02 NG/ML (< 0.10)
--- NOTE | 2019-09-28 14:33 | ECHO ---
DATE OF STUDY: 09/28/2019 REFERRING PHYSICIAN: Dr. Link Becerra INDICATION: Pericardial effusion. HEIGHT: 188 cm WEIGHT: 70 kg 2-D MEASUREMENTS: Left atrium: 4.3 cm Ventricular septum: 1.39 cm Posterior wall: 1.77 cm Left ventricle diastole: 4.1 cm Aortic root: 3.2 cm Inferior vena cava: 2.5 cm with very little respiratory variation suggestive of elevated central venous pressure of at least 20 mmHg. DOPPLER MEASUREMENTS: No aortic stenosis. No aortic regurgitation. Aortic valve velocity: 116 cm/sec LVOT velocity: 90.1 cm/sec No mitral stenosis. No mitral regurgitation Mitral E velocity: 80.1 cm/sec Mitral A velocity: 45.0 cm/sec Mitral deceleration time: 185 ms Trace tricuspid regurgitation. No pulmonic regurgitation. Pulmonary artery acceleration time: 132 ms MITRAL ANNULAR TISSUE DOPPLER E prime septal: 8.8 cm/sec E prime lateral: 10.7 cm/sec DESCRIPTION: The rhythm was sinus . Image quality was good. This was a 2-D, M-mode, color flow Doppler and pulsed wave Doppler examination and included mitral annular tissue Doppler. CONCLUSIONS: 1. Large circumferential pericardial effusion, which was maximum over the posterior wall of the left ventricle where it measured 2.0 cm. Over the right ventricle outflow tract conus region it measured 0.8 cm, over the right ventricle inferior wall 1.0 cm, inferior wall of the left ventricle 1.4 cm, over the left ventricle apex 0.8 cm, over the lateral wall of the left ventricle 1.3 cm. No stranding or masses were seen within the pericardial effusion. No significant respiratory variation of intracardiac velocities with respiration. No diastolic chamber collapse. A very subtle slight swinging motion was present of the heart. 2. Moderate concentric left ventricular hypertrophy. Normal regional LV wall motion and wall thickening. Left ventricular ejection fraction (LVEF) 60-65% by visual estimate. Normal LV diastolic function. 3. Mild left atrial dilatation. 4. Normal right ventricular size and systolic function. 5. Suggestive of elevated central venous pressure of at least 20 mmHg. Inferior vena cava plethora. Results of this echocardiogram-Doppler were communicated by cell phone to Dr. Salinas Gilbert.
[2019-09-28] MEDS: PANTOPRAZOLE 40MG TAB (PROTONIX) PO SCH (15:00)
--- NOTE | 2019-09-28 15:20 | CR ---
DATE OF CONSULTATION: 09/28/2019 The patient was seen at the request of the emergency room, Dr. Becerra, for pericardial effusion with chest pain. 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 It was done through a yin sternotomy. The pericardium was not entered. He had a benign postoperative course in June and had been discharged from our care. He complains over the last 2 weeks of chest pain over the epigastrium. It hurts when he takes a deep breath. It also hurts when he changes position, particularly going from sitting to lying. There has been no shortness of breath other than that which is caused by pain when he takes a deep breath. He does not complain of fever, but he does complain of chills last night. He describes them as teeth rattling. There has been no weight loss or sweats. There is no dysphagia. He does not complain of joint swelling, although he states that his knees have been aching, which he puts down to "arthritis." There is no small joint pain. He has not noticed any changes to his skin. In particular, he has not noted any rashes. PAST MEDICAL HISTORY: 1. Anxiety. 2. Bipolar disorder. 3. Depression. 4. The above finding thymic hyperplasia. MEDICATIONS AT HOME: None. PAST SURGICAL HISTORY: The above removal of the thymic hyperplastic mass and a hernia repair as an , which he does not know of its anatomic location. TRAVEL HISTORY: He has been to [place] in the remote past. EXPOSURES: He has a number of dogs, a [employer] and [employer] mixes. There is also a cat but there are no birds. No prior exposure to tuberculosis. 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 HABITS: In June of this year, he reports smoking 1/2 pack [place] He has been smoking since a teenager. He also does vaping. 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 Alcohol imbibes rarely. Denies illicit drugs. REVIEW OF SYSTEMS: Constitutional: See HPI. Eyes: Without diplopia and amaurosis fugax or prior jaundice. Nose: Without epistaxis. Mouth: Has his own teeth. Respiratory: See HPI. Cardiac: See HPI. Without orthopnea or paroxysmal nocturnal dyspnea and without prior myocardial infarctions. Denies intermittent claudication. Gastrointestinal (GI): Without nausea, vomiting, diarrhea, constipation, melena, hematochezia, hematemesis, or abdominal pain other than the above epigastric pain. Genitourinary (): Without dysuria, hematuria, or prior history of renal stones. Neurologic: Without paresthesias, paralysis, or prior seizures. Endocrine: Without diabetes. Without thyroid disease. Psychiatric: Has the above depression, anxieties, and bipolar disorder. He is not on any medications for those. PHYSICAL EXAMINATION: Well-developed, obese white male in distress with pain. Vital Signs: Temperature is 98.9. Pulse is 90 in a sinus rhythm. Respiratory rate is 20 without the use of accessory muscles. He is 97% saturated on room air and his blood pressure is 160/68. Head: Normocephalic. Eyes: Pupils equal, round, and reactive to light. Extraocular motor intact. Sclerae nonicteric. Nose: Without deformity. Mouth: Shows his mucous membranes to be pink and moist. Lips and commissures without lesions. He has his own teeth. Neck: Is supple. There is no jugular venous distention. No subcutaneous emphysema. Trachea is midline. There is no lymphadenopathy or thyromegaly. Lungs: Show equal breath sounds on either side without wheezes, rhonchi, or rales. Percussion note is full to the diaphragm. Cardiac: Exam shows a pericardial friction rub. I hear no other murmurs, clicks, or gallops. Rub is best heard on the right upper sternal border and the left sternal border. I cannot feel her point of maximal impulse (PMI). Abdomen: Soft, nontender. Bowel sounds are positive. Without hepatomegaly or costovertebral angle (CVA) tenderness. Deep palpation to the epigastrium does cause pain. Extremities: Show no pretibial edema. No calf tenderness. No differential swelling of the upper extremities. Skin: Is warm, dry, and perfused without mottling of the knees or nail beds. Neurologic: Shows II-XII intact along with gross motor and gross sensation intact. Gait is not tested. Psychiatric: Shows him to be awake and alert, oriented times three with appropriate mood and affect, and conversational. His white count today is 10.8 with hemoglobin and hematocrit of 15.3 and 46.2, with a platelet count of 269. Differential shows 66% neutrophils, 22% lymphocytes, 9% monocytes. There are no immature forms. No toxic granulations. Electrolytes are essentially normal with a BUN and creatinine of 9 and 0.72, glucose of 95 and a calcium of 8.2. PT/INR are 14.9 and 1.2, respectively. His chest x-ray maybe shows some cardiomegaly, but when compared to one done in July it is essentially unchanged. Knowing what the CT scan shows I can imagine a little more cardiomegaly than there was before in July. Costophrenic angles are sharp. I see no infiltrates. CT angiography did not show a pulmonary embolism. He has a moderate to large pericardial effusion mostly posteriorly. His right diaphragm looks a little high. I see no mediastinal lymphadenopathy. Adrenals are intact and both have a normal configuration. There are no lesions in the liver. Echocardiogram to my reading does not show diastolic collapse. He does have a moderate to large pericardial effusion posteriorly. There is a scant amount anteriorly. I did see a little bit of vena caval relaxation between inspiration and expiration. I am waiting Dr. Braxton's official interpretation. IMPRESSION: 1. Pericardial effusion, unknown origin. 2. Pericarditis, unknown cause. 3. Bipolar disorder. 4. Status post removal of a hyperplastic thymus in June. PLAN/DISCUSSION: Considering what I see on the echo and on the CT scan I do not think I need to intervene surgically at this point in time. The hospitalist are admitting him and I have asked them to treat him like medical pericarditis with antiinflammatories include nonsteroidal anti-inflammatory drugs (NSAIDs) and colchicine. I have sent off respiratory panels to include COVID, although I do not think that this is presentation of COVID at all. Pericardial effusions in COVID are very rare. I have sent off rheumatoid factors and ALEX to look for autoimmune disease. I have also sent off a TSH to consider hypothyroidism. It should be noted that his troponin is less than 0.02 and his EKG shows what looks to be diffuse ST elevations consistent with pericarditis. [facility]
[2019-09-28 16:14] LABS: RHEUMATOID FACTOR QUANT < 10.0 IU/ML (<15.0); THYROID STIMULATING HORMONE 0.645 uIU/ML (0.358-3.740)
[2019-09-28 16:55] LABS: HEPATITIS B CORE ANTIBODY IGM NEGATIVE (NEGATIVE)
[2019-09-28 16:56] LABS: HIV 1&2 SCREEN CENTAUR NEGATIVE (NEGATIVE)
[2019-09-28 16:57] LABS: HEPATITIS A ANTIBODY IGM NEGATIVE (NEGATIVE)
--- NOTE | 2019-09-28 17:48 | ECGEPIP ---
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 Order Number: [id number] Reading MD: Gui Patel Measurements Intervals [place] Rate: 93 P: 19 CO: 173 QRS: 3 QRSD: 88 T: 23 QT: 335 QTc: 419 Interpretive Statements SINUS RHYTHM BENIGN EARLY REPOLARIZATION SIMILAR TO 07/03/19 Electronically Signed on 09-28-2019 17:48:11 EDT by Gui Patel
[2019-09-28] MEDS ORDERED: LEVALBUTEROL HFA 45MCG/ACT 15 GM INHALER INH PRN (19:45)
[2019-09-28 19:55] LABS: CK-MB VALUE MASS < 1.0 NG/ML (<3.6); CPK CREATINE PHOSPHOKINASE 59 U/L (39-308); MB/CK RELATIVE INDEX 1.69 (< OR =4); TROPONIN I < 0.02 NG/ML (< 0.10)
[2019-09-28] MEDS: COLCHICINE 0.6 MG TAB PO SCH (20:05)
[2019-09-28] MEDS: DOCUSATE SODIUM 100 MG CAP PO SCH (20:05)
[2019-09-28] MEDS: HEPARIN SOD (PORCINE) 5000UNITS/ML VIAL (J1644 PER 1000UNITS) SC SCH (20:05)
[2019-09-28] MEDS: LEVALBUTEROL HFA 45MCG/ACT 15 GM INHALER INH SCH (20:09)
[2019-09-28] MEDS: PERCOCET 5MG/325MG TAB PO PRN (21:19)
--- NOTE | 2019-09-28 22:04 | ECGEPIP ---
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 No significant change compared with 9:07 AM today. Electronically Signed on 09-28-2019 22:03:58 EDT by Link Braxton
[2019-09-29] VITALS (14 sets, daily range): BP systolic 101–132; BP diastolic 52–72
[2019-09-29] MEDS: KETOROLAC 30 MG/ML 1ML VIAL IV SCH ×4 (00:03→18:09)
[2019-09-29] MEDS: KCL 20MEQ IN D5/NS 1000ML 1,000 ML IV SCH ×2 (00:41→14:40)
[2019-09-29 02:04] LABS: CK-MB VALUE MASS < 1.0 NG/ML (<3.6); CPK CREATINE PHOSPHOKINASE 48 U/L (39-308); MB/CK RELATIVE INDEX 2.08 (< OR =4); TROPONIN I < 0.02 NG/ML (< 0.10)
[2019-09-29] MEDS: LEVALBUTEROL HFA 45MCG/ACT 15 GM INHALER INH SCH ×4 (02:32→19:34)
[2019-09-29 06:31] LABS: BASO % 0.2 % (0.0-1.0); EOS # 0.3 10^3/uL (0.0-0.5); HEMATOCRIT 41.5 % (42.0-52.0); LYMPH # 2.3 10^3/uL (1.5-5.0); LYMPH % 24.7 % (24.0-44.0); MEAN CORPUSCULAR HEMOGLOBIN 29.2 pg (27.0-33.0); MEAN CORPUSCULAR HGB CONC 33.7 g/dl (32.0-36.5); MEAN CORPUSCULAR VOLUME 86.6 fl (80.0-96.0); MONO # 0.7 10^3/uL (0.0-0.8); MONO % 7.7 % (0.0-5.0); NEUTROPHILS # 6.1 10^3/uL (1.5-8.5); NEUTROPHILS % 64.2 % (36.0-66.0); PLATELET COUNT, AUTOMATED 219 10^3/uL (150-450); RED BLOOD COUNT 4.79 10^6/uL (4.30-6.10); WHITE BLOOD COUNT 9.5 10^3/uL (4.0-10.0)
[2019-09-29 06:53] LABS: BLOOD UREA NITROGEN 13 MG/DL (7-18); CALCIUM LEVEL 8.3 MG/DL (8.5-10.1); CARBON DIOXIDE LEVEL 26 MEQ/L (21-32); CHLORIDE LEVEL 110 MEQ/L (98-107); CK-MB VALUE MASS < 1.0 NG/ML (<3.6); CPK CREATINE PHOSPHOKINASE 47 U/L (39-308); CREATININE FOR GFR 0.86 MG/DL (0.70-1.30); GLOMERULAR FILTRATION RATE > 60.0 (>60); GLUCOSE, FASTING 98 MG/DL (70-100); MB/CK RELATIVE INDEX 2.13 (< OR =4); POTASSIUM SERUM 4.2 MEQ/L (3.5-5.1); SODIUM LEVEL 140 MEQ/L (136-145); TROPONIN I < 0.02 NG/ML (< 0.10)
--- NOTE | 2019-09-29 09:51 | REP ---
CHEST X-RAY: Two views. HISTORY: Pericardial effusion. COMPARISON CHEST X-RAY: September 28, 2019. July 05, 2019 prior chest x-ray is also reviewed. FINDINGS: There is slight blunting of the pleural angles bilaterally indicating small bilateral effusions. Cardiomegaly is observed. The cardiothoracic ratio is 56.4%. Heart size is similar to the prior study. Median sternotomy wires are noted. There is bilateral lower lobe discoid atelectasis. Lung allen are otherwise clear. IMPRESSION: Small bilateral pleural effusions. Cardiomegaly. Bilateral lower lobe plate-like atelectasis. The atelectasis and the pleural angle blunting are a little more prominent than on the previous day's radiograph. Electronically Signed by Stef Torres MD 09/29/2019 10:00 A
[2019-09-29] MEDS: COLCHICINE 0.6 MG TAB PO SCH ×2 (10:24→21:15)
[2019-09-29] MEDS: HEPARIN SOD (PORCINE) 5000UNITS/ML VIAL (J1644 PER 1000UNITS) SC SCH ×2 (10:24→21:16)
[2019-09-29] MEDS: DOCUSATE SODIUM 100 MG CAP PO SCH ×2 (10:26→21:15)
[2019-09-29] MEDS: MOM 30ML SUSPENSION UDC PO SCH (10:26)
[2019-09-29] MEDS: PANTOPRAZOLE 40MG TAB (PROTONIX) PO SCH (10:26)
--- NOTE | 2019-09-29 10:29 | IPN ---
DATE: 09/29/2019 Mr. Collazo has had an uneventful night. His pain is much better. He is breathing well. His vital signs show a T-max of 99.3, with a heart rate that ranges between 79 and 73 in a sinus rhythm, a respiratory rate of 18 to 20 without the use of accessory muscles, who is 95% saturated on 1 liter nasal cannula, and whose blood pressures are ranging between 101/52 to 116/59. His intake and output over the past 24 hours has been recorded as 3320 in and 675 out for a positivity of 2645 mL. His weight is 104.7 kg compared to 103.3 kg yesterday. On physical examination, his lungs show equal breath sounds on either side. I do hear some slight expiratory wheezing at the very end of expiration anteriorly. Percussion note is full to the diaphragm. Cardiac: Exam shows a murmur and/or pericardial friction rub at the left upper sternal border. I cannot make up my mind whether this is an actual murmur or rub. I do not hear anything at the apex. I cannot feel his point of maximal impulse (PMI). Abdomen: Soft, nontender. Bowel sounds are positive. There is no hepatomegaly. No costovertebral angle (CVA) tenderness. Extremities: Show no pretibial edema. No calf tenderness. No differential swelling of the upper extremities. Skin is warm, dry, and perfused and without cyanosis or mottling, including that of the nail beds and knees. Neck is supple. There is no jugular venous distention. No subcutaneous emphysema. Trachea is midline. Mouth shows his mucous membranes to be pink and moist. Lips and commissures without lesions. There is no thrush. Eyes: Shows his pupils to be equal and reactive. Extraocular movements intact. Sclerae nonicteric. Neurologic: Shows II-XII intact with gross motor and gross sensation intact. Gait is not tested. Psychiatric: Shows him to be awake and alert, oriented times three with appropriate mood and affect and conversational. His white count today is 9., down from 10.8 yesterday. Hemoglobin and hematocrit are 14.0 and 41.5 with a platelet count of 219 and stable. Differential shows 64% neutrophils, 24% lymphocytes, 7% monocytes. There are no immature forms. No toxic granulations. Electrolytes are essentially normal with a BUN and creatinine of 13 and 0.86, glucose of 98 and a calcium of 8.3. Troponins are all negative. Rheumatoid factor is less than 10 and being negative with his ALEX still pending. A IgM and B IgM are negative. Remainder of viral titers are pending. COVID is pending. His echocardiogram does not show aortic stenosis or regurgitation and neither does it show mitral stenosis or regurgitation. There is some trace tricuspid regurgitation. Dr. Braxton thought that there was little respiratory variation of the inferior vena cava. He has confirmed that there is no diastolic compression and he has a normal left ventricular ejection fraction of 60-65%. IMPRESSION: 1. Pericardial effusion, unknown etiology. 2. Pericarditis, unknown etiology. 3. Bipolar disorder. 4. Status post removal of a hyperplastic thymus in June. PLAN AND DISCUSSION: He is now on anti-inflammatories including Toradol and colchicine. His pain is better. I am content to watch him and repeat an echocardiogram in 3-4 days to look at the progression of the pericardial effusion. Hopefully, he will escape a decompression procedure. The pericardial effusion is very sparse anteriorly and if I had to decompress him it would probably have to be via a subxiphoid pericardial window. Will await the remainder of the pericardial workup. His TSH was normal. His liver functions are also normal.
[2019-09-29 14:08] LABS: ANTINUCLEAR ANTIBODIES DIRECT Negative (Negative)
[2019-09-29 14:09] LABS: CK-MB VALUE MASS < 1.0 NG/ML (<3.6); CPK CREATINE PHOSPHOKINASE 55 U/L (39-308); MB/CK RELATIVE INDEX 1.82 (< OR =4); TROPONIN I < 0.02 NG/ML (< 0.10)
[2019-09-29] MEDS: PERCOCET 5MG/325MG TAB PO PRN (15:52)
--- NOTE | 2019-09-29 20:27 | HPE ---
DATE OF ADMISSION: 09/28/2019 CHIEF COMPLAINT: Chest pain, shortness of breath. 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 Discharged from thoracic surgery. Presented to the emergency room with acute onset of worsening shortness of breath, pleuritic chest pain, which started over the past 2 weeks, but worsened over the past 4-5 days. The patient initially noticed this while he was walking and felt that his chest was hurting, described as sharp and stabbing in the middle of the chest. Last night he took some Tylenol to go to sleep, about two tablets. He has noted worsening exertional dyspnea, especially because he works for [employer] and has been unable to carry packages as this would take his "breath away." The patient's shortness of breath and chest pain was worse with moving around, and he feels as if carrying something takes all his strength. It is worse when lying down, creates more pressure. He has had no fever but describes some chills yesterday. He denies any cough, nausea, vomiting, abdominal pain. He has chronic knee pain, which he ascribes to arthritis, but otherwise has had no swelling of the metacarpophalangeal (MCP), proximal interphalangeal (PIP), distal interphalangeal (DIP), bilateral elbow, knee joints. He presents for further evaluation to the emergency room. Patient was afebrile. Vital signs were stable. Blood pressure was 139/72. CT chest showed moderate pericardial effusion. STAT echo showed no pericardial tamponade with a large pericardial effusion. Hospitalist was asked to admit for further evaluation of the pericardial effusion. PAST MEDICAL HISTORY: Thymic hyperplasia, status post excisional mediastinal medial sternotomy without entering the pericardium on 06/28/2019. Bipolar disorder. Hernia repair as a baby. PAST SURGICAL HISTORY: Excisional mediastinal mass. Osbaldo median sternotomy. Hernia repair as a baby. HOME MEDICATIONS: None. As needed Tylenol. ALLERGIES: No known drug allergies. SOCIAL HISTORY: Works for [employer]. Quit smoking in June. Previously smoked a pack a day since he was a teenager. He lives with his girlfriend. 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 Social alcohol use. Has had no COVID-19 contacts. Lives with two dogs and a cat. No recent travel. CODE STATUS: Full Code. FAMILY HISTORY: Unknown. REVIEW OF SYSTEMS: Per history of the present illness. 12-point system otherwise negative. PHYSICAL EXAMINATION: Temperature 98.9, pulse 97, respiratory rate 20, blood pressure 137/72, 97% on room air. Generally, patient is awake, alert, oriented to person, place and time. No conversational dyspnea. There is no cervical lymphadenopathy, thyromegaly. No jugular venous distention. Trachea is midline. No cervical lymphadenopathy or thyromegaly. Lungs are clear to auscultation. No wheezing, rales, or rhonchi. Heart: S1, S2, no murmurs noted. Positive pericardial friction rub. Abdomen: Soft, nontender, nondistended. Positive bowel sounds. Extremities: No cyanosis, clubbing or pitting edema. LABORATORY DATA: White count 10, hemoglobin 15, hematocrit 46, platelet count 269. Sodium 140, potassium 3.9, chloride 111, bicarbonate 26, BUN 9, creatinine 0.75, glucose of 86, phosphorus 2.5, ferritin 131, total bilirubin 0.4, AST 13, ALT 24, alkaline phosphatase 92, troponin less than 0.02, CRP of 4.94, BNP of 21, TSH 0.645. ALEX is pending. Coronavirus-[address] chest: Moderate pericardial effusion, tiny bilateral pleural effusions with mild patchy atelectasis or infiltrate, left greater than right. No evidence of pulmonary embolism (PE) or aortic dissection. Echocardiogram: Large pericardial effusion, maximum over posterior wall left ventricle measuring 2 cm. No diastolic chamber collapse. Moderate concentric left ventricular hypertrophy (LVH), ejection fraction (EF) of 60-65%. Normal left ventricular (LV) diastolic function. Normal right ventricular (RV) systolic function. ASSESSMENT AND PLAN: This is a 28-year-old male with a history of thymic hyperplasia, status post osbaldo median sternotomy on 06/28/2019 without entering the pericardium with benign postoperative course June 2019. Admitted for pleuritic chest pain and worsening shortness of breath, found to have a large pericardial effusion. Large pericardial effusion. At this time, the patient does not require surgical intervention as there is no cardiac tamponade. Differential diagnosis includes pericarditis, rheumatological diseases and infection. Therefore, ALEX, rheumatoid factor, JUANITO, anti-Rosas antibody, double-stranded DNA antibody, HIV, hepatitis profile, Coxsackie A and B, CMV, EBV, HIV, HSV, have all been sent. Cardiothoracic surgeon, Dr. Salinas Gilbert, has been consulted for help in monitoring of the large pericardial effusion. At this time, the patient has been getting colchicine 0.6 mg twice a day for pericarditis and Toradol 30 mg IV every 6 hours. Cycle cardiac markers. 2D echo shows normal systolic and diastolic function, large effusion without tamponade. Acute pericarditis. EKG and Tele with acute ST elevation diffusely. colchicine bid and toradol q6hrs. History of thymic hyperplasia, status post removal of thymic mass. Bipolar disorder, stable. No new complaints. Anxiety, depression. No suicidal ideation. Deep vein thrombosis (DVT) prophylaxis with compression stockings, heparin subcu. MTDD
--- NOTE | 2019-09-29 20:34 | IPN ---
DATE: 09/29/2019 Patient still complains of pleuritic chest pain without fever. Denies any chills this morning. Patient has not been out of bed. No joint pain. Telemetry was unremarkable. 2D echo yesterday showed large pericardial effusion without cardiac tamponade. Temperature 98.3, pulse 83, respiratory rate 21, blood pressure 114/62, 94% on room air. Generally: Patient is awake, alert, oriented to person, place, and time, answering questions appropriately without conversational dyspnea. Neck: No cervical lymphadenopathy, thyromegaly, or jugular venous distention. Lungs: Diminished with faint wheezing, air entry is equal bilaterally. Heart: S1, S2, sinus rhythm, distant heart sounds, pericardial friction rub noted. Abdomen: Soft, nontender, nondistended. Positive bowel sounds. No rebound or guarding. Extremities. No edema. White count 9.5, hemoglobin 14, hematocrit 41, platelet count 219, sodium 140, potassium 4.2, chloride 110, bicarbonate 26, BUN 13, creatinine 0.86, glucose of 98, troponin less than 0.02. Telemetry: ST elevation diffusely. Rheumatoid factor less than 10. ALEX is pending. Coxsackie A and B pending. Hepatitis A and B negative. HIV negative. COVID-19 is pending. IMAGING STUDIES: CT chest moderate pericardial effusion, tiny bilateral pleural effusions, mild patchy atelectasis, infiltrate of each lower lobe left greater than right, no evidence of pulmonary embolism. Echocardiogram, read by Dr. Link Braxton, large pericardial effusion. No diastolic chamber collapse. Moderate left ventricular hypertrophy (LVH). Ejection fraction (EF) 60-65%. Normal systolic. Normal left ventricular diastolic function. 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 Patient was admitted for evaluation and management of large pericardial effusion noted on CT of the chest. IMPRESSION: 1. Large pericardial effusion. Patient is clinically stable. Does not have jugular venous distention or hypotension. Echocardiogram shows no pericardial tamponade. Antinuclear antibody (ALEX) is pending. Coxsackie virus A and B are pending. Patient is being treated for pericarditis with colchicine and Toradol. IV fluids have been given. COVID-19 is pending. Cardiothoracic surgeon, Dr. Salinas Gilbert, has been consulted for possible pericardial window should the patient decompensate and develop cardiac tamponade. 2. Pericarditis. Viral studies are still pending. He is being treated with colchicine and Toradol currently. IV fluids to prevent acute kidney injury. Awaiting for COVID-19 testing to return. He has had no fever or chills. He does have some patchy densities on CT chest. 3. Anxiety/depression. No suicidal ideation. 4. Bipolar disorder. Currently stable. [facility]
[2019-09-30] VITALS (11 sets, daily range): BP systolic 114–144; BP diastolic 52–82
[2019-09-30] MEDS: KETOROLAC 30 MG/ML 1ML VIAL IV SCH ×5 (00:08→23:31)
[2019-09-30] MEDS: LEVALBUTEROL HFA 45MCG/ACT 15 GM INHALER INH SCH ×3 (01:42→14:13)
[2019-09-30] MEDS: PERCOCET 5MG/325MG TAB PO PRN ×3 (04:34→20:28)
[2019-09-30] MEDS: HEPARIN SOD (PORCINE) 5000UNITS/ML VIAL (J1644 PER 1000UNITS) SC SCH ×2 (08:56→21:45)
[2019-09-30] MEDS: PANTOPRAZOLE 40MG TAB (PROTONIX) PO SCH (08:57)
[2019-09-30] MEDS: MOM 30ML SUSPENSION UDC PO SCH (09:00)
[2019-09-30] MEDS: DOCUSATE SODIUM 100 MG CAP PO SCH ×2 (09:01→21:44)
[2019-09-30 09:19] LABS: BASO % 0.3 % (0.0-1.0); EOS # 0.3 10^3/uL (0.0-0.5); EOS % 3.7 % (0.0-3.0); HEMATOCRIT 40.9 % (42.0-52.0); HEMOGLOBIN 13.3 g/dl (13.5-17.5); LYMPH # 2.8 10^3/uL (1.5-5.0); LYMPH % 31.3 % (24.0-44.0); MEAN CORPUSCULAR HGB CONC 32.5 g/dl (32.0-36.5); MEAN CORPUSCULAR VOLUME 86.1 fl (80.0-96.0); MONO # 0.6 10^3/uL (0.0-0.8); MONO % 7.1 % (0.0-5.0); NEUTROPHILS # 5.2 10^3/uL (1.5-8.5); NEUTROPHILS % 57.3 % (36.0-66.0); PLATELET COUNT, AUTOMATED 255 10^3/uL (150-450); RED BLOOD COUNT 4.75 10^6/uL (4.30-6.10)
[2019-09-30 09:53] LABS: BLOOD UREA NITROGEN 16 MG/DL (7-18); CALCIUM LEVEL 8.4 MG/DL (8.5-10.1); CARBON DIOXIDE LEVEL 27 MEQ/L (21-32); CHLORIDE LEVEL 109 MEQ/L (98-107); CREATININE FOR GFR 0.82 MG/DL (0.70-1.30); GLOMERULAR FILTRATION RATE > 60.0 (>60); GLUCOSE, FASTING 83 MG/DL (70-100); POTASSIUM SERUM 4.3 MEQ/L (3.5-5.1); SODIUM LEVEL 142 MEQ/L (136-145)
[2019-09-30] MEDS: COLCHICINE 0.6 MG TAB PO SCH ×2 (10:03→21:43)
--- NOTE | 2019-09-30 12:38 | REP ---
REASON: Followup. COMPARISON: Yesterday. Once again, there is global cardiomegaly. Once again, there is bilateral CP angle blunting status quo. No acute patchy parenchymal opacities have developed since the last exam. Note is again made of previous median sternotomy. There is no change in the osseous structures. IMPRESSION: No significant change. Electronically Signed by Jarod Estrada DO 09/30/2019 01:04 P
[2019-09-30] MEDS ORDERED: BACITRACIN OINTMENT 30GM TUBE TOP ONE (15:00)
[2019-09-30] MEDS ORDERED: ceFAZolin SOD 2 GM in IV 1 EA IV ONE (15:00)
[2019-09-30] MEDS ORDERED: BUPIVACAINE LIPOSOME/PF 1.3% 20ML VIAL (13.3MG/ML)(EXPAREL)(C9290 PER1MG) As Ordered ONE (15:29)
[2019-09-30] MEDS ORDERED: BUPIVACAINE HCL 0.5% 10ML VIAL As Ordered ONE (15:29)
[2019-09-30] MEDS ORDERED: ROCURONIUM BROMIDE 50 MG/5 ML VIAL As Ordered ONE ×2 (16:00→17:08)
[2019-09-30] MEDS ORDERED: ONDANSETRON 4MG/2ML VIAL As Ordered ONE (16:00)
[2019-09-30] MEDS ORDERED: fentaNYL 250 MCG/5 ML INJECTION (J3010) As Ordered ONE (16:00)
[2019-09-30] MEDS ORDERED: LIDOCAINE 2% 100MG/5ML SDV (FOR ANES.) As Ordered ONE (16:00)
[2019-09-30] MEDS ORDERED: MIDAZOLAM INJ 2MG/2ML VIAL (J2250 PER 1MG) As Ordered ONE (16:00)
[2019-09-30] MEDS ORDERED: dexameTHASONE 4 MG/ML 1ML VIAL (J1100 PER 1MG) As Ordered ONE (16:01)
[2019-09-30] MEDS ORDERED: propofoL 200 MG/20 ML VIAL As Ordered ONE (16:02)
[2019-09-30] MEDS ORDERED: BACITRACIN OINTMENT 30GM TUBE As Ordered ONE (16:06)
[2019-09-30] MEDS ORDERED: ceFAZolin 2 GM/D5W 50 ML IV BAG (J0690 PER 500MG) As Ordered ONE (16:06)
[2019-09-30] MEDS ORDERED: MUPIROCIN 2% OINT 22 GM TUBE As Ordered ONE (16:12)
--- NOTE | 2019-09-30 16:21 | IPN ---
DATE: 09/30/2019 Mr. Collazo complains of standing up and becoming dizzy. He also walked about his room for a few steps and became very short of breath. I was in the operating room at the time but asked for a CT of the chest to be repeated. It shows that the pericardial effusion is bigger despite being on medical therapy. An echocardiogram did not show a satisfactory window for me to place a percutaneous catheter safely. His vital signs show a maximum temperature (Tmax) of 99.1, with a heart rate that ranges between 18-20 without the use of accessory muscles, who is 93-94% saturated on room air, and his blood pressure is ranging between 127/67-114/52. His intake and output for the past 24 hours has been recorded as 2380 in and 1300 out for a positivity of 1080 mL. All of his intake has been by oral. He last ate at 9 o'clock this morning. Weight today is 104.6 kg compared to 104.7 kg yesterday. On physical examination, his lungs show equal breath sounds on either side. I hear no wheezes, rhonchi, or rales. His cardiac exam shows the murmur and/or pericardial friction rub best heard along the left upper sternal border. I cannot feel his point of maximum impulse (PMI). S1 and S2 are normal. Abdomen is soft, nontender. Bowel sounds are positive. There is no hepatomegaly. No costovertebral angle (CVA) tenderness. Extremities: Show no pretibial edema. No calf tenderness. No differential swelling of the upper extremities. Skin is warm, dry, and perfused without cyanosis or mottling, including that of the nail beds and knees. Neck is supple. There is no jugular venous distention. No subcutaneous emphysema. Trachea is midline. Mouth: Shows his mucous membranes to be pink and moist. Lips and commissures without lesions. There is no thrush. Eyes: Shows his pupils to be equal and reactive. Extraocular movements intact. Sclerae nonicteric. Neurologic: Shows II-XII intact along with gross motor and gross sensation intact. Gait is not tested. Psychiatric: Shows him to be awake and alert, oriented times three, with appropriate mood and affect, and conversational. His white count today is 9.0, with hemoglobin and hematocrit of 13.3, and 40.9, respectively. This is essentially unchanged from yesterday. Platelet count is 255 and differential shows 57% neutrophils, 31% lymphocytes, 7% monocytes. There are no immature forms. No toxic granulations. His electrolytes are essentially normal today with a BUN and creatinine of 16 and 0.82, glucose of 83 and a calcium of 8.4. The ALEX screen is negative as his rheumatoid factor. His Coxsackie virus titers are pending are as CMV and EBV. COVID PCR returned this afternoon is negative. Blood cultures are negative. His chest x-ray done this afternoon shows increase in his pericardial effusion. There is very little however anteriorly. He has bilateral pleural effusions both of which are small. There is a lung compression on both sides, again to a very small degree. IMPRESSION: 1. Pericardial effusion, unknown etiology, getting worse. 2. Pericarditis, unknown etiology. 3. Bipolar disorder. 4. 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 As he now symptomatic and his pericardial effusion is demonstrably larger on the CT scan, I will therefore take him to the operating room to a pericardial window. If there is no safe access point to anteriorly drain his pericardial effusions, most of its posterior. He does not have any respiratory variation of vena cava today to my reading. I explained to him the risks and benefits of the procedure and he is willing to proceed, including mortality, bleeding and infection.
[2019-09-30] MEDS ORDERED: ACETAMINOPHEN 1000MG 100ML IV BTL (OFIRMEV) (J0131 PER 10MG) As Ordered ONE (16:54)
[2019-09-30] MEDS ORDERED: HYDROmorphone HCL 2 MG/ML 1ML VIAL (J1170) As Ordered ONE (17:07)
[2019-09-30] MEDS ORDERED: ETOMIDATE INJ 20MG/10ML VIAL As Ordered ONE (17:08)
--- NOTE | 2019-09-30 17:15 | ECHO ---
DATE OF STUDY: 09/30/2019 at 1452 hours REFERRING PHYSICIAN: Dr. Salinas Gilbert INDICATION: Pericardial effusion. HEIGHT: 183 cm WEIGHT: 109 kg 2-D MEASUREMENTS: Inferior vena cava: 2.5 cm Ventricular septum: 0.94 cm Posterior wall: 0.96 cm Left ventricle diastole: 5.3 cm Left atrium: 3.7 cm Aortic root: 3.5 cm Aortic annulus: 2.3 cm DOPPLER MEASUREMENTS: Aortic valve velocity: 115 cm/sec No aortic regurgitation. LVOT velocity: 55.5 cm/sec LVOT VTI: 10.2 cm No mitral regurgitation. Mitral E velocity: 73.1 cm/sec Mitral A velocity: 56.3 cm/sec Mitral deceleration time: 134 ms No tricuspid regurgitation. No pulmonic regurgitation. Pulmonary systolic artery pressure: 28 mmHg MITRAL ANNULAR TISSUE DOPPLER E prime septal: 7.5 cm/sec E prime lateral: 8.2 cm/sec DESCRIPTION: The rhythm was sinus. Image quality was good. This was a 2-D, M-mode, color flow Doppler and pulsed wave Doppler examination and included mitral annular tissue Doppler. CONCLUSIONS: 1. Large pericardial effusion (circumferential) most likely transudate with absence of stranding or masses. No significant respiratory variation, intracardiac velocities. Partial right atrial and at times partial right ventricular collapse. Mild swinging motion of the heart. Pericardial effusion measured 2.4 cm over the posterobasal region of the left ventricle, 1.3 cm over the apicolateral segment of the left ventricle and 2.4 cm over the mid lateral LV wall. Overall findings suggestive of early pericardial tamponade. 2. Normal left ventricular size and hyperdynamic systolic function. Left ventricular ejection fraction (LVEF) 75% by visual estimate. No regional wall motion abnormalities of the left ventricle. Hyperdynamic right ventricular systolic function. 3. Inferior vena cava plethora suggestive of elevated central venous pressure. 4. Structurally normal and functionally normal cardiac valves.
[2019-09-30] MEDS ORDERED: KETOROLAC 60 MG/2 ML VIAL As Ordered ONE (17:55)
[2019-09-30] MEDS ORDERED: SUGAMMADEX SODIUM 500 MG/5 ML VIAL (BRIDION) As Ordered ONE (17:55)
[2019-09-30] MEDS ORDERED: KCL 20MEQ IN D5/NS 1000ML 1,000 ML IV SCH (18:22)
[2019-09-30] MEDS ORDERED: CETACAINE SPRAY 5GM As Ordered ONE (18:39)
[2019-09-30 18:46] LABS: ABG BASE EXCESS -1.8 (-2.0-2.0); ABG HCO3 24.7 MEQ/L (22.0-26.0); ABG O2 SATURATION 98.4 % (95.0-99.0); ABG PARTIAL PRESSURE CO2 49.1 mmHg (35.0-45.0); ABG TOTAL CO2 26.2 MEQ/L (22.0-29.0)
[2019-09-30] MEDS ORDERED: ALBUTEROL SULFATE 2.5 MG/0.5 ML INH NEB SOLN As Ordered ONE (19:36)
[2019-09-30 19:40] LABS: ABG BASE EXCESS -1.3 (-2.0-2.0); ABG HCO3 25.1 MEQ/L (22.0-26.0); ABG O2 SATURATION 92.1 % (95.0-99.0); ABG PARTIAL PRESSURE CO2 48.5 mmHg (35.0-45.0); ABG PARTIAL PRESSURE O2 66.8 mmHg (75.0-100.0); ABG STANDARD HCO3 23.3 MEQ/L (22.0-26.0); ABG TOTAL CO2 26.6 MEQ/L (22.0-29.0); ABG pH (ARTERIAL) 7.332 UNITS (7.350-7.450)
[2019-09-30 19:47] LABS: BASO % 0.2 % (0.0-1.0); EOS # 0.2 10^3/uL (0.0-0.5); EOS % 1.5 % (0.0-3.0); HEMATOCRIT 39.4 % (42.0-52.0); HEMOGLOBIN 12.8 g/dl (13.5-17.5); LYMPH # 1.6 10^3/uL (1.5-5.0); LYMPH % 13.4 % (24.0-44.0); MEAN CORPUSCULAR HEMOGLOBIN 28.1 pg (27.0-33.0); MEAN CORPUSCULAR HGB CONC 32.5 g/dl (32.0-36.5); MEAN CORPUSCULAR VOLUME 86.4 fl (80.0-96.0); MONO # 0.3 10^3/uL (0.0-0.8); MONO % 2.4 % (0.0-5.0); NEUTROPHILS # 9.7 10^3/uL (1.5-8.5); PLATELET COUNT, AUTOMATED 251 10^3/uL (150-450); RED BLOOD COUNT 4.56 10^6/uL (4.30-6.10); WHITE BLOOD COUNT 11.9 10^3/uL (4.0-10.0)
[2019-09-30] MEDS ORDERED: fentaNYL 100 MCG/2 ML INJECTION (J3010) As Ordered ONE (19:51)
[2019-09-30] MEDS ORDERED: KETAMINE HCL 200 MG/20 ML VIAL As Ordered ONE (19:53)
[2019-09-30] MEDS: fentaNYL 100 MCG/2 ML INJECTION (J3010) IV PRN ×4 (19:55→20:29)
[2019-09-30 19:59] LABS: BLOOD UREA NITROGEN 14 MG/DL (7-18); CALCIUM LEVEL 7.7 MG/DL (8.5-10.1); CARBON DIOXIDE LEVEL 26 MEQ/L (21-32); CHLORIDE LEVEL 111 MEQ/L (98-107); CREATININE FOR GFR 0.85 MG/DL (0.70-1.30); GLOMERULAR FILTRATION RATE > 60.0 (>60); GLUCOSE, FASTING 91 MG/DL (70-100); POTASSIUM SERUM 4.4 MEQ/L (3.5-5.1); SODIUM LEVEL 143 MEQ/L (136-145)
[2019-09-30] MEDS ORDERED: METOCLOPRAMIDE INJ 10MG/2ML VIAL (J2765 PER 1) IV PRN (20:00)
[2019-09-30] MEDS ORDERED: LR 1,000 ML IV SCH (20:00)
[2019-09-30] MEDS ORDERED: ONDANSETRON 4MG/2ML VIAL IV PRN (20:00)
[2019-09-30] MEDS ORDERED: PERCOCET 5MG/325MG TAB As Ordered ONE (20:20)
[2019-09-30 20:21] LABS: PH BODY FLUID 7.783 UNITS (NOT ESTABLISHED); SOURCE, BODY FLUID pH PERICARDIAL
[2019-09-30 20:28] LABS: APPEARANCE, BODY FLUID TURBID (CLEAR); SOURCE, BODY FLUID PERICARDIAL; SPEC. GRAVITY BODY FLUIDS 1.032 (NOT ESTABLISHED)
[2019-09-30] MEDS: ceFAZolin SOD 1 GM in D5W MINI-BAG PLUS 50 ML IV SCH (23:31)
[2019-09-30] MEDS: NORCO, ANEXSIA 5/325MG TABLET (HYDROcodone/ACETAMINOPHEN) PO PRN (23:32)
[2019-10-01] VITALS (23 sets, daily range): BP systolic 99–158; BP diastolic 51–91; O2SAT 92–94
[2019-10-01] MEDS: PERCOCET 5MG/325MG TAB PO PRN ×4 (02:18→20:50)
[2019-10-01] MEDS: LEVALBUTEROL HFA 45MCG/ACT 15 GM INHALER INH SCH ×4 (02:21→20:07)
[2019-10-01 04:25] LABS: BASO % 0.1 % (0.0-1.0); EOS % 0.1 % (0.0-3.0); HEMATOCRIT 39.2 % (42.0-52.0); LYMPH # 1.2 10^3/uL (1.5-5.0); LYMPH % 9.7 % (24.0-44.0); MEAN CORPUSCULAR HEMOGLOBIN 28.4 pg (27.0-33.0); MEAN CORPUSCULAR HGB CONC 33.2 g/dl (32.0-36.5); MEAN CORPUSCULAR VOLUME 85.6 fl (80.0-96.0); MONO # 0.7 10^3/uL (0.0-0.8); MONO % 5.9 % (0.0-5.0); NEUTROPHILS % 83.8 % (36.0-66.0); PLATELET COUNT, AUTOMATED 277 10^3/uL (150-450); RED BLOOD COUNT 4.58 10^6/uL (4.30-6.10)
[2019-10-01 04:45] LABS: BLOOD UREA NITROGEN 12 MG/DL (7-18); CALCIUM LEVEL 8.1 MG/DL (8.5-10.1); CARBON DIOXIDE LEVEL 25 MEQ/L (21-32); CHLORIDE LEVEL 110 MEQ/L (98-107); CREATININE FOR GFR 0.75 MG/DL (0.70-1.30); GLOMERULAR FILTRATION RATE > 60.0 (>60); GLUCOSE, FASTING 131 MG/DL (70-100); POTASSIUM SERUM 4.5 MEQ/L (3.5-5.1); SODIUM LEVEL 142 MEQ/L (136-145)
[2019-10-01] MEDS: KETOROLAC 30 MG/ML 1ML VIAL IV SCH ×4 (05:55→23:41)
[2019-10-01] MEDS: NORCO, ANEXSIA 5/325MG TABLET (HYDROcodone/ACETAMINOPHEN) PO PRN ×3 (05:55→23:42)
[2019-10-01 05:56] LABS: ABG BASE EXCESS -1.4 (-2.0-2.0); ABG HCO3 23.1 MEQ/L (22.0-26.0); ABG O2 SATURATION 98.1 % (95.0-99.0); ABG PARTIAL PRESSURE CO2 38.4 mmHg (35.0-45.0); ABG PARTIAL PRESSURE O2 100.2 mmHg (75.0-100.0); ABG STANDARD HCO3 23.3 MEQ/L (22.0-26.0); ABG TOTAL CO2 24.3 MEQ/L (22.0-29.0); ABG pH (ARTERIAL) 7.398 UNITS (7.350-7.450)
[2019-10-01] MEDS ORDERED: MORPHINE 4 MG/ML 1ML VIAL/SYRINGE (J2270) IV ONE (07:30)
[2019-10-01] MEDS ORDERED: MOM 30ML SUSPENSION UDC PO PRN (07:30)
[2019-10-01] MEDS ORDERED: MIRALAX *UNIT DOSE* 17GM PACKET PO PRN (07:30)
--- NOTE | 2019-10-01 07:38 | REP ---
CT CHEST WITHOUT IV CONTRAST: CT chest performed without IV contrast. Sagittal and coronal reconstruction images are performed. Comparison made with prior study of 09/28/2019. Patchy bibasilar atelectasis/infiltrate has mildly increased since prior study. There are small bilateral pleural effusions which have also increased. There is a moderate to large pericardial effusion which demonstrates mild increase compared to the prior study. Slightly enlarged lymph nodes are seen in the preaortic region and precarinal region. IMPRESSION: Mild increase in moderate to large pericardial effusion. Small bilateral pleural effusions have increased. There is patchy bibasilar atelectasis/infiltrate which has also mildly increased since prior study of 09/28/2019. Electronically Signed by Clayton Olvera MD 10/01/2019 09:30 P
[2019-10-01] MEDS ORDERED: ACETAMINOPHEN *IV* 1,000 MG in IV 1 EA IV ONE (08:00)
[2019-10-01 08:26] LABS: LDH, BODY FLUID 1747 U/L (NOT ESTABLISHED); SOURCE, BODY FLUID ALBUMIN PERICARDIAL; SOURCE, BODY FLUID GLUCOSE PERICARDIAL; SOURCE, BODY FLUID LDH PERICARDIAL; SOURCE, BODY FLUID TOT PROTEIN PERICARDIAL; TOTAL PROTEIN, BODY FLUID 4.9 G/DL (NOT ESTABLISHED)
--- NOTE | 2019-10-01 08:28 | RO ---
DATE OF PROCEDURE: 09/30/2019 PREPROCEDURE DIAGNOSIS: Pericardial effusion, tamponade. POSTPROCEDURE DIAGNOSIS: Pericardial effusion, tamponade with mucous plugging necessitating bronchoscopy. FINDINGS: 500 mL of serosanguineous fluid was drained from the pericardium. Patient became hypoxic and hypotensive into the case. A chest x-ray was taken in the operating room, which showed lung fully expanded to the chest wall, with air bronchograms. A bronchoscopy was undertaken, which showed mucous plugging. Bronchoscopy was done with bronchoalveolar lavage. PROCEDURE: Pericardial window, distal sternectomy, tube pericardiostomy and bronchoscopy. SURGEON: Salinas Gilbert MD REGISTERED DIETITIAN: ANESTHESIA: DESCRIPTION OF PROCEDURE: Under satisfactory general anesthesia and after placement of an art line and single-lumen tube intubation, the patient was prepped and draped in the usual sterile fashion. A subxiphoid incision was made, carried on to the sternum. Linea alba was divided and dissection of the underlying adventitial tissue on the sternum was undertaken. He had an extraordinarily long xiphoid and distal sternum. What I thought was the extended xiphoid was removed and the thin portion of distal sternum filed and smoothed off. Rultract retractor was placed, and I opened what I thought was the pericardium; however, it turned out to be peritoneum. The peritoneal entry was oversewn with a running #3-0 Vicryl suture. It then became very clear that the patient's liver was quite enlarged, diaphragm was elevated, and he had a very, very long distal sternum, albeit narrow. The distal sternum was, therefore, rongeured off and removed and finally smoothed for about 4 cm. This then allowed us to replace the Rultract at the costal margin and elevate the sternum. The pericardium was then entered with the above results of 500 mL of serosanguineous fluid. Pericardiotomy was extended and a pericardial window was created by removing pleura and pericardial fat. Patient had copious amounts of pericardial fat, which required extensive removal in order to create an adequate pericardial window. Almost all of the dissection was done by electrocautery for cauterization of bleeding vessels. After creating a pericardial window, a piece of pericardium was excised and sent for pathological examination along with the pericardial fat. Two chest tubes were placed, one in the well of the pericardium towards the right side and an angled chest tube posteriorly into the chest through the pericardial window. These were secured to the abdominal wall. The Rultract was removed and the linea alba was reapproximated by use of a running #0 Vicryl suture, the subcu tissue by use of a running #3-0 Vicryl suture, and the skin by use of #3-0 Monocryl subcuticular suture. Prior to closure, the rectus muscle was infiltrated with Exparel and Marcaine mixture, as well as the subcutaneous tissue. The patient then had difficulty with hypoxia and hypotension. After continued manual ventilation and bagging the patient with anesthesia, a chest x-ray was taken, which showed air bronchograms in the left lower lobe. I, therefore, undertook a bronchoscopy. The right side showed some thick secretions, but could be easily removed. However, the left side showed even thicker secretions and mucous plugging. Bronchoalveolar lavage was undertaken to clear the mucous plugs successfully. At the conclusion of the case, the patient was stable and was sent to the recovery room in critical condition.
[2019-10-01] MEDS: MOM 30ML SUSPENSION UDC PO SCH (09:01)
[2019-10-01] MEDS: COLCHICINE 0.6 MG TAB PO SCH ×2 (09:01→20:21)
[2019-10-01] MEDS: HEPARIN SOD (PORCINE) 5000UNITS/ML VIAL (J1644 PER 1000UNITS) SC SCH ×2 (09:02→20:20)
[2019-10-01] MEDS: DOCUSATE SODIUM 100 MG CAP PO SCH ×2 (09:02→20:21)
[2019-10-01] MEDS: PANTOPRAZOLE 40MG TAB (PROTONIX) PO SCH (09:02)
[2019-10-01] MEDS: ceFAZolin SOD 1 GM in D5W MINI-BAG PLUS 50 ML IV SCH ×3 (09:03→23:41)
--- NOTE | 2019-10-01 10:54 | ECGEPIP ---
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 Order Number: [id number] Reading MD: Wilfred Read Measurements Intervals [place] Rate: 101 P: 22 VT: 164 QRS: -3 QRSD: 90 T: 21 QT: 333 QTc: 432 Interpretive Statements SINUS TACHYCARDIA ST ELEVATION CONSISTENT MOST LIKELY DUE TO EARLY REPOLARIZATION, CONSIDER PERICARDITIS COMPARED TO 09/28/19 THERE HAS BEEN SMALL CHANGE, ST DEPRESSIONIN V2 IS NEW, OF UNCLEAR SIGNIFICANCE Electronically Signed on 10-01-2019 10:53:57 EDT by Wilfred Raed
[2019-10-01] MEDS ORDERED: FUROSEMIDE 40MG/4ML VIAL (J1940) IV ONE (13:00)
--- NOTE | 2019-10-01 13:08 | REP ---
AP CHEST: Two AP views of the chest are performed following pericardial window procedure. Prominent cardiac silhouette is noted due to pericardial effusion. Bilateral infiltrates/atelectasis. Sternal wires are present. Endotracheal tube is seen with the tip 3.7 cm above the frank. Two chest catheters project over the right cardiophrenic angle region. Electronically Signed by Clayton Olvera MD 10/01/2019 09:37 P
--- NOTE | 2019-10-01 13:13 | REP ---
CHEST PORTABLE: AP portable view of the chest is performed. Comparison made with prior exam of the same day. Once again, two right chest catheters are noted, unchanged in position. There is a very small amount of air under the right diaphragm. Dr. Gilbert was made aware by telephone. Heart and mediastinum are unchanged. Endotracheal tube has been removed. There is better aeration of the lungs with improved bilateral parenchymal opacities. Electronically Signed by Clayton Olvera MD 10/01/2019 09:39 P
--- NOTE | 2019-10-01 13:31 | REP ---
CHEST, TWO VIEWS: Two views of the chest are performed. COMPARISON: 09/30/2019 Two right chest catheters are unchanged. There is again a tiny amount of air beneath the right diaphragm as seen on prior study. There are mild bibasilar parenchymal opacities, left greater than right. There is slight increased parenchymal opacity along the left hemidiaphragm since the prior study. Heart and mediastinum are unchanged. Electronically Signed by Clayton Olvera MD 10/01/2019 09:41 P
--- NOTE | 2019-10-01 18:24 | IPN ---
DATE: 09/30/2019 Patient complains of dizziness when he gets up and walks toward the window from the bedroom and when he walks to the bathroom. He continues to complain of pleuritic chest pain, rating it at 3/10 at the best, at the worst 7/10 despite colchicine and Toradol. Patient has no chest pressure or tightness. No fevers or chills. No joint pains nor muscle aches. Telemetry remains unremarkable in sinus rhythm. Temperature 97.6, pulse 80, respiratory rate 18, blood pressure 121/67, 93% on room air. GENERAL: Patient is awake, alert, oriented to person, place, and time. He has no conversational dyspnea. No jugular venous distention (JVD) or thyromegaly. No cervical lymphadenopathy. LUNGS: Air entry is equal bilaterally. Clear to auscultation. No wheezing or rales. HEART: S1, S2, sinus rhythm. No murmurs, rubs, or gallops. Patient has a pericardial friction rub. ABDOMEN: Soft, nontender, nondistended. Positive bowel sounds. EXTREMITIES: No cyanosis, clubbing, or pitting edema. LABORATORY DATA: White count 9, hemoglobin 13, hematocrit 40, platelet count 255. Sodium 142, potassium 4.6, chloride 109, bicarbonate 27, BUN 16, creatinine 0.82, glucose 83. INR of 1.2 on 09/28/2019. COVID-19 is negative. 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 He presented to the emergency room with 2-week history of worsening shortness of breath and worsening pleuritic chest pain for the past 4-5 days prior to presentation. Patient noticed it while he was walking. [place] that his chest was hurting. Described it as sharp and stabbing in the middle of the chest. 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 It is worse when he lies down. Denies any cough, fever, or chills. COVID-19 is negative. He was found to have a moderate pericardial effusion on CT chest. Echocardiogram shows a large pericardial effusion with no tamponade. Patient had been on telemetry and being treated for pericarditis due to ST-segment elevations in all the leads, on colchicine and IV Toradol. He has some relief but complains of dizziness when he walks and worsening shortness of breath, unable to fully ambulate up and down the hallway. COVID-19 is negative. Due to worsening symptoms, patient will have a repeat CT chest to be reviewed by Dr. Gilbert. Per Dr. Braxton, because of symptoms, patient should have a pericardial window performed but will defer to thoracic surgery for the timing of this. At this time, patient is transferred to the intensive care unit (ICU) under telemetry. Repeat CT chest has been obtained. Defer to Dr. Salinas Gilbert regarding pericardial window. He is being treated for acute pericarditis with ST elevations in all the leads, on IV Toradol and Colchicine. At this time he is kept nothing by mouth until we have the repeat CT chest and decision whether or not the patient will go for pericardial window. HEIKE
[2019-10-01] MEDS ORDERED: MORPHINE 2 MG/ML 1ML VIAL (J2270) IV ONE (21:15)
[2019-10-02] VITALS (13 sets, daily range): BP systolic 106–136; BP diastolic 59–84
[2019-10-02] MEDS: LEVALBUTEROL HFA 45MCG/ACT 15 GM INHALER INH SCH ×4 (02:13→19:39)
[2019-10-02] MEDS: PERCOCET 5MG/325MG TAB PO PRN ×3 (03:36→22:33)
[2019-10-02 05:05] LABS: BASO % 0.2 % (0.0-1.0); EOS # 0.4 10^3/uL (0.0-0.5); EOS % 3.6 % (0.0-3.0); HEMATOCRIT 40.5 % (42.0-52.0); HEMOGLOBIN 13.1 g/dl (13.5-17.5); LYMPH # 2.9 10^3/uL (1.5-5.0); LYMPH % 27.1 % (24.0-44.0); MEAN CORPUSCULAR HEMOGLOBIN 27.9 pg (27.0-33.0); MEAN CORPUSCULAR HGB CONC 32.3 g/dl (32.0-36.5); MEAN CORPUSCULAR VOLUME 86.2 fl (80.0-96.0); MONO # 0.9 10^3/uL (0.0-0.8); MONO % 8.1 % (0.0-5.0); NEUTROPHILS # 6.5 10^3/uL (1.5-8.5); NEUTROPHILS % 60.6 % (36.0-66.0); PLATELET COUNT, AUTOMATED 290 10^3/uL (150-450); WHITE BLOOD COUNT 10.8 10^3/uL (4.0-10.0)
[2019-10-02 05:22] LABS: BLOOD UREA NITROGEN 15 MG/DL (7-18); CALCIUM LEVEL 8.2 MG/DL (8.5-10.1); CARBON DIOXIDE LEVEL 28 MEQ/L (21-32); CHLORIDE LEVEL 108 MEQ/L (98-107); CREATININE FOR GFR 0.81 MG/DL (0.70-1.30); GLOMERULAR FILTRATION RATE > 60.0 (>60); GLUCOSE, FASTING 84 MG/DL (70-100); POTASSIUM SERUM 4.1 MEQ/L (3.5-5.1); SODIUM LEVEL 140 MEQ/L (136-145)
[2019-10-02] MEDS: KETOROLAC 30 MG/ML 1ML VIAL IV SCH ×4 (05:53→23:56)
[2019-10-02] MEDS: NORCO, ANEXSIA 5/325MG TABLET (HYDROcodone/ACETAMINOPHEN) PO PRN (05:53)
--- NOTE | 2019-10-02 07:29 | IPNPDOC ---
Date Seen The patient was seen on 10/02/19. Progress Note slept well. still with pain with deep inspiration having some difficulty using the spirometer, needing iv morphine to control breakthrough pain, despite norco and percocet 8/10 pain scale when "pills wear off.". no pain right now sitting lisa wheelchair to go to CXR. tele: sinus. no issues per RN. pt slept well last night. tolerating his diet, but no bowel movement yet. on bowel regimen. PE vs see below i/o reviewed GENERAL: Patient is awake, alert, oriented to person, place, and time. He has no conversational dyspnea. No jugular venous distention (JVD) or thyromegaly. No cervical lymphadenopathy. LUNGS: Air entry is equal bilaterally. Clear to auscultation. No wheezing or rales. chest tube bloody discharge HEART: S1, S2, sinus rhythm. No murmurs, rubs, or gallops. surgical incision site clean anali no drainage. drains w blood discharge ABDOMEN: Soft, nontender, nondistended. Positive bowel sounds. EXTREMITIES: No cyanosis, clubbing, or pitting edema. 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 He presented to the emergency room with 2-week history of worsening shortness of breath and worsening pleuritic chest pain for the past 4-5 days prior to presentation. Patient noticed it while he was walking. [place] that his chest was hurting. Described it as sharp and stabbing in the middle of the chest. 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 It is worse when he lies down. Denies any cough, fever, or chills. COVID-19 is negative. He was found to have a moderate pericardial effusion on CT chest. Echocardiogram shows a large pericardial effusion with no tamponade. Patient had been on telemetry and being treated for pericarditis due to ST-segment elevations in all the leads, on colchicine and IV Toradol. Pericardial Effusion of unknown Etiology s/p early pericardial tamponade s/p window and chest tube placement ALEX,RF, hepatitis profile, HIV negative, [id number] managed by thoracic surgery. prn pain meds, bowel regimen, on DVT prophylaxis. Bipolar d/o, stable Acute Pericarditis s/p colchicine, IV toradol. VS, I&O, 24H, Fishbone Vital Signs/I&O Vital Signs Date Time Temp Pulse Resp B/P (MAP) Pulse Ox O2 Delivery O2 Flow Rate FiO2 10/02/19 06:23 14 10/02/19 04:00 4.0 10/02/19 04:00 99.2 90 106/59 (75) 93 Nasal Cannula I&O- Last 24 Hours up to 6 AM 10/02/19 06:00 Intake Total 1890 ml Output Total 3760 ml Balance -1870 ml Laboratory Data 24H LABS Laboratory Tests 2 10/02/19 04:26: Immature Granulocyte % (Auto) 0.4, Neutrophils (%) (Auto) 60.6, Lymphocytes (%) (Auto) 27.1, Monocytes (%) (Auto) 8.1H, Eosinophils (%) (Auto) 3.6H, Basophils (%) (Auto) 0.2, Neutrophils # (Auto) 6.5, Lymphocytes # (Auto) 2.9, Monocytes # (Auto) 0.9H, Eosinophils # (Auto) 0.4, Basophils # (Auto) 0.0, Nucleated Red Blood Cells % (auto) 0.0, Anion Gap 4L, Glomerular Filtration Rate > 60.0, Calcium Level 8.2L CBC/BMP Laboratory Tests 10/02/19 04:26 Microbiology Microbiology 09/30/19 Acid Fast Stain, Received Pending 09/30/19 Mycobacterial Culture, Received Pending 09/30/19 Fungal Smear, Received Pending 09/30/19 Fungal Culture, Received Pending 09/30/19 Gram Stain - Final, Complete 09/30/19 Body Fluid Culture - Final, Complete 09/30/19 Anaerobic Culture - Final, Complete 09/28/19 - Final, Complete 09/28/19 Coronavirus COVID-19 PCR (KARUNA) - Final, Complete 09/28/19 Blood Culture - Preliminary, Resulted No Growth after 72 hours. All specime... ADIA TINAJERO MD October 02, 2019 07:29
[2019-10-02] MEDS ORDERED: MORPHINE 4 MG/ML 1ML VIAL/SYRINGE (J2270) IV PRN (07:30)
[2019-10-02] MEDS: ceFAZolin SOD 1 GM in D5W MINI-BAG PLUS 50 ML IV SCH ×2 (07:49→16:04)
[2019-10-02] MEDS: MOM 30ML SUSPENSION UDC PO SCH (08:37)
[2019-10-02] MEDS: DOCUSATE SODIUM 100 MG CAP PO SCH ×2 (08:37→19:53)
[2019-10-02] MEDS: HEPARIN SOD (PORCINE) 5000UNITS/ML VIAL (J1644 PER 1000UNITS) SC SCH ×2 (08:37→19:53)
[2019-10-02] MEDS: COLCHICINE 0.6 MG TAB PO SCH ×2 (08:38→19:53)
[2019-10-02] MEDS: PANTOPRAZOLE 40MG TAB (PROTONIX) PO SCH (08:38)
[2019-10-02] MEDS: ONDANSETRON 4MG/2ML VIAL IV PRN ×2 (08:39→12:31)
[2019-10-02] MEDS: SENOKOT S TAB PO PRN (08:53)
--- NOTE | 2019-10-02 09:42 | REP ---
CHEST, TWO VIEWS: Two views of the chest are performed and compared to prior study of 10/01/2019. Bibasilar opacities appear essentially unchanged. There is again a tiny amount of air beneath the right diaphragm. Two right chest catheters are unchanged in position. Cardiomediastinal silhouette is unchanged. IMPRESSION: Stable exam. Electronically Signed by Clayton Olvera MD 10/02/2019 10:25 A
[2019-10-02] MEDS ORDERED: FUROSEMIDE 40MG/4ML VIAL (J1940) IV ONE (11:00)
--- NOTE | 2019-10-02 13:01 | IPN ---
DATE: 10/01/2019 The patient underwent pericardial window yesterday due to early tamponade and symptomatic pericardial effusion and was gently transferred to the intensive care unit (ICU). COVID-19 was negative. Overnight, after the procedure, the patient had significant mucous plugging, status post bronchoscopy with removal of mucous plug and secretions. The patient feels 8/10 pain without any movement at the bedside despite [place], Percocet and IV Toradol schedule. He remained afebrile overnight. Currently on IV cefazolin. He has chest pain, pericardial drain, put out 55 mL overnight and 150 mL on the last, chest tube was about 205 mL overnight. The patient continues to complain of postsurgical pain despite medications. No chills, no nausea or vomiting. He remains in positive balance, admission weight of 103 kg, current weight of 107.5 kg with increasing lower extremity edema. Temperature 98.6, pulse 91, respiratory rate 18, blood pressure 123/78, 96% on 4 liters nasal canula. Genera: The patient is awake, alert, speaking in full sentences, no acute respiratory accessory muscles. Surgical scar and anali appear clean and dry. Pericardial drain with bloody discharge, chest tube intact. Heart: S1, S2, sinus rhythm. Lungs are clear to auscultation bilaterally. Abdomen is soft, nontender, nondistended. Positive bowel sounds in four quadrants. No rebound or guarding. Extremities: Positive pitting edema. LABORATORY DATA: White count 12, hemoglobin 13, hematocrit 39, platelet count 277, sodium 142, potassium 4.5, chloride 110, bicarbonate 25, BUN 12, creatinine 0.75, glucose of 131. Input 4373, output 975, positive 3398. Previous weight 104.6 kg, current weight 107.5 kg. ALEX is negative. Rheumatoid factor is negative. Coxsackie A and B are still pending. CMV is still pending. EBV pending. Hepatitis serology negative. HSV is pending. HIV is negative. Coronavirus 19 is negative. Pericardial fluid is pending. 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 Seen at [place] at sent home, then presented to the emergency room (ER). 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 A CT chest statically showed no pericardial tamponade. The patient was tested for COVID- 19, which was negative. Electrocardiogram (EKG) was showing ST elevation with acute pericarditis. The patient was being treated with colchicine, IV Toradol with worsening symptomatic pericardial effusion with dizziness and worsening dyspnea on exertion. Stat repeat CT chest showed worsening pericardial effusion and stat echocardiogram showed an early pericardial tamponade. The patient was subsequently brought to the operating room for pericardial window complicated by mucous plugging requiring bronchoscopy and evacuation of secretions and has been stable since arrival in the intensive care unit (ICU) with pericardial drain and chest tube. Telemetry remained stable with pulse of 91 to 107, venous uncontrolled however. IMPRESSION: 1. Pericardial tamponade secondary to large pericardial effusion. We are awaiting etiology of the pericardial effusion. So far ALEX is negative, Coxsackievirus is still pending. The patient was being treated for pericarditis with colchicine and IV Toradol. Customer Experience Analyst, Dr. Braxton, had been consulted and would like to follow the patient as an outpatient at hospital discharge. Dr. Gilbert had performed a pericardial window on 09/30/2019 with chest tube and pericardial drain in place. Currently on IV cefazolin perioperatively. Deep vein thrombosis (DVT) prophylaxis with heparin subcutaneous and intravenous fluid. Pain currently is not controlled on current [place], Percocet. The patient has been given IV morphine for breakthrough pain. Blood pressure remains steady. 2. Acute pericarditis. Currently still on IV Toradol. 3. History of bipolar disorder, anxiety depression. Currently stable on no medications. CODE STATUS: Full code. DIET: Regular diet. MTDD
--- NOTE | 2019-10-02 14:08 | IPN ---
DATE: 10/01/2019 Mr. Collazo had a stable night of surgery. His pain is being fairly well controlled (dictation cut off). His vital signs since surgery show a maximum temperature (T max) of 98.6 with a heart rate that ranges between 95 and 105 and is sinus rhythm, a respiratory rate of 18 to 16 without the use of accessory muscles who is 93% saturated on 5 liters nasal cannula and whose blood pressure is ranging between 158/86 to 142/81. His intake and output for the past 24 hours has been recorded as 4373 in and 975 out for a positivity of 3398 mL. He has put out 150 mL from the pericardial tube and 50 mL from the chest tube. He weighs 107.5 kg today compared to 104.6 kg yesterday. Most of his intake was IV intake at surgery and in the recovery room. On physical examination, his lungs show bronchophony in the right lower hemithorax. Percussion note is dull at the right base. I hear no wheezes. Cardiac exam shows pericardial friction rub and/or pericardial tube rub. I hear no murmurs. I cannot feel his point of maximum impulse (PMI). Abdomen is soft and nontender but mildly distended. Bowel sounds are positive. I can feel no hepatomegaly. There is no costovertebral angle tenderness. Extremities show no pretibial edema. No calf tenderness. No differential swelling of the upper extremities. His skin is warm, dry and perfused without cyanosis or mottling, including that of the nail beds and the knees. Neck is supple. There is no jugular venous distention, no subcutaneous emphysema. Trachea is midline. Mouth shows his mucous membranes to be pink and moist. Lips and commissures without lesions. There is no thrush. Eyes show his pupils to be equal and reactive. Extraocular motions intact. Sclerae anicteric. Neurologic shows II-XII intact along with gross motor and gross sensation intact. Gait is not tested. Psychiatric shows him to be awake and alert, oriented times three with appropriate mood and affect and conversational. His white count today is 12.0 with a hemoglobin and hematocrit of 13.0 and 39.2, unchanged from yesterday with a platelet count of 277. Differential shows 83% neutrophils, 9% lymphocytes, 5% monocytes. There are no immature forms. No toxic granulations. Chemistries today show essentially normal electrolytes with a BUN and creatinine of 12 and 0.75, a glucose of 131, and a calcium of 8.1. Blood gas this morning showed a pH of 7.39, a pCO of 38, and a pO2 of 100 with a base excess of -1.4. His pericardial fluid shows a pH of 7.7 with a glucose of 52, a LDH of 1747, and a total protein of 4.9 with a corresponding serum LDH of 153, and total protein of 6.2. He has 2944 white cells, 60% of which are mononuclear lymphocytes and 40% are neutrophils. It, therefore, looks like an exudative hypoglycemic lymphocytic or monocytic effusion consistent with either chronicity or possible infection. This may represent a viral process. His ALEX is negative as is his rheumatoid factor and all of the viral studies are pending. He is COVID negative. IMPRESSION: 1. Pericardial effusion with tamponade, unknown etiology. 2. Pericarditis, unknown etiology. 3. Bipolar disorder. 4. 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 PLAN AND DISCUSSION: I will continue his tubes on suction. I will also start to diurese him. It should be noted that his chest x-ray shows the lung fully expanded to the chest wall. His cardiac size is much more defined and less globular. Chest tubes are in good place as is the pericardial tube. There is some air under the diaphragm from entry into the peritoneum yesterday. We will await for the pathology results. There are no organisms seen on gram stain.
[2019-10-03] VITALS (7 sets, daily range): BP systolic 109–142; BP diastolic 64–76
[2019-10-03] MEDS: LEVALBUTEROL HFA 45MCG/ACT 15 GM INHALER INH SCH ×4 (01:57→19:41)
[2019-10-03 05:12] LABS: BASO % 0.4 % (0.0-1.0); EOS # 0.4 10^3/uL (0.0-0.5); EOS % 4.6 % (0.0-3.0); HEMATOCRIT 42.2 % (42.0-52.0); HEMOGLOBIN 13.6 g/dl (13.5-17.5); LYMPH # 2.9 10^3/uL (1.5-5.0); LYMPH % 30.4 % (24.0-44.0); MEAN CORPUSCULAR HEMOGLOBIN 27.8 pg (27.0-33.0); MEAN CORPUSCULAR HGB CONC 32.2 g/dl (32.0-36.5); MEAN CORPUSCULAR VOLUME 86.3 fl (80.0-96.0); MONO # 0.8 10^3/uL (0.0-0.8); MONO % 7.8 % (0.0-5.0); NEUTROPHILS # 5.5 10^3/uL (1.5-8.5); NEUTROPHILS % 56.4 % (36.0-66.0); PLATELET COUNT, AUTOMATED 310 10^3/uL (150-450); RED BLOOD COUNT 4.89 10^6/uL (4.30-6.10); WHITE BLOOD COUNT 9.7 10^3/uL (4.0-10.0)
[2019-10-03 05:34] LABS: BLOOD UREA NITROGEN 18 MG/DL (7-18); CALCIUM LEVEL 8.6 MG/DL (8.5-10.1); CARBON DIOXIDE LEVEL 29 MEQ/L (21-32); CHLORIDE LEVEL 106 MEQ/L (98-107); CREATININE FOR GFR 0.84 MG/DL (0.70-1.30); GLOMERULAR FILTRATION RATE > 60.0 (>60); GLUCOSE, FASTING 90 MG/DL (70-100); POTASSIUM SERUM 4.2 MEQ/L (3.5-5.1); SODIUM LEVEL 139 MEQ/L (136-145)
[2019-10-03] MEDS: KETOROLAC 30 MG/ML 1ML VIAL IV SCH (05:40)
[2019-10-03] MEDS: SENOKOT S TAB PO PRN (09:20)
[2019-10-03] MEDS: MOM 30ML SUSPENSION UDC PO SCH (09:20)
[2019-10-03] MEDS: PANTOPRAZOLE 40MG TAB (PROTONIX) PO SCH (09:21)
[2019-10-03] MEDS: DOCUSATE SODIUM 100 MG CAP PO SCH ×2 (09:21→20:39)
[2019-10-03] MEDS: HEPARIN SOD (PORCINE) 5000UNITS/ML VIAL (J1644 PER 1000UNITS) SC SCH ×2 (09:22→20:38)
--- NOTE | 2019-10-03 10:09 | IPN ---
DATE OF SERVICE: 10/02/2019 This is now the second postoperative day for Mr. Collazo. He is still putting a little too much out of the pericardial tube for me to remove it. However, the chest tube is draining very little, and I will remove that. His pain is being well controlled. His vital signs show a maximum temperature (Tmax) of 99.2 earlier this morning. Heart rate ranges between 77 and 84 in a sinus rhythm. Respiratory rate is 16-18 without the use of accessory muscles who is 92% saturated on 1 liter nasal cannula and whose blood pressure is ranging between 123/79 to 112/61. His intake and output for the past 24 hours has been recorded as 2290 in and 4355 out for a negativity of 2000 mL. He has put out 150 mL out of the pericardial tube and 65 mL out the chest tube. Weight today is 106 kg compared to 107.5 kg yesterday. On physical examination, he has coarse rhonchi throughout both lungs in inspiration and expiration. Percussion note is full to the diaphragm. There is also bronchophony at the left base. Cardiac examination shows pericardial and/or pericardial tube rub. I hear no murmurs. I cannot feel his point of maximum impulse (PMI). S1 and S2 are normal. Abdomen is soft and nontender. Bowel sounds are positive. There is no hepatomegaly. No costovertebral angle (CVA) tenderness. He is extended, however. Extremities show no pretibial edema. No calf tenderness. No differential swelling of the upper extremities. His skin is warm, dry, and perfused without cyanosis or mottling, including that of the nail beds and the knees. Neck is supple. There is no jugular venous distention, no subcutaneous emphysema. Trachea is midline. Mouth shows his mucous membranes to be pink and moist. Lips and commissures without lesions. There is no thrush. Eyes show his pupils to be equal and reactive. Extraocular motions intact. Sclerae anicteric. Neurologic shows II-XII intact, along with gross motor and gross sensation intact. Gait is not tested. Psychiatric shows him to be awake and alert, oriented times three with appropriate mood and affect and conversational. His white count today is 10.8 with a hemoglobin and hematocrit of 13.1 and 40.5, respectively. This is essentially unchanged from yesterday. His platelet count is 290 and stable. Differential shows 60% neutrophils, 27% lymphocytes, 8% monocytes. There are no immature forms. No toxic granulations. Electrolytes are essentially normal with a BUN and creatinine of 15 and 0.81, a glucose of 84, and a calcium of 8.2. His c[place] antibodies are still pending. His CMV and EBV are also still pending. His chest x-ray today shows poor inspiration. He does have a large heart shadow. There are air bronchograms behind the heart. On his preoperative CT, he did have what I thought was compression in both the right lower and left lower lobes, more on the left than the right. I could clearly see the air bronchograms on the left again with some on the right. I interpret this as compression atelectasis. There is growth anaerobically. Aerobic results are still pending. IMPRESSION: 1. Pericardial effusion, still unknown etiology. 2. Cardiac tamponade, relieved with a pericardial window and tube pericardiostomy. 3. Bipolar disorder. 4. 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 PLAN AND DISCUSSION: I have no good indication that he has a bacterial process going on either in the pericardium or in his lungs. I do have a sinking feeling that we are going to be characterizing him as a viral pericarditis by exclusion. I will diurese him again today. Edited 10/03/2019 aml
--- NOTE | 2019-10-03 10:20 | IPNPDOC ---
Date Seen The patient was seen on 10/03/19. Progress Note no issues overnight. no fever, chills, sob, pnd, orthopnea. 3/10 pain scale alleviated with prn pain meds. tele: sinus chest tube, pericardial drains discontinued. per thoracic surgery, ok to transfer to pcu. ok to dc home thursday. Functional Mental Disability Teacher, Dr. Kent wants patient to fu with him as outpatient. PE: vitals: see below i/o : see below General: The patient is awake, alert, speaking in full sentences, no acute respiratory accessory muscles. HEENT: anicteric. no JVD, no thyromegaly, no cervical LAD Lungs: Surgical scar and anali appear clean and dry. CTAB Heart: S1, S2, sinus rhythm. Abdomen is soft, nontender, nondistended. Positive bowel sounds in four quadrants. No rebound or guarding. Extremities: no cyanosis, clubbing LABORATORY DATA. 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 Seen at [place] and sent home, then presented to the emergency room (ER). 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 A CT chest statically showed no pericardial tamponade. The patient was tested for COVID- 19, which was negative. Electrocardiogram (EKG) was showing ST elevation with acute pericarditis. The patient was being treated with colchicine, IV Toradol with worsening symptomatic pericardial effusion with dizziness and worsening dyspnea on exertion. Stat repeat CT chest showed worsening pericardial effusion and stat echocardiogram showed an early pericardial tamponade. The patient was subsequently brought to the operating room for pericardial window complicated by mucous plugging requiring bronchoscopy and evacuation of secretions and has been stable since arrival in the intensive care unit (ICU) with pericardial drain and chest tube. Chest tube and pericardial drains discontinued, and doing well. 1. Pericardial tamponade secondary to large pericardial effusion, resolved. N Functional Mental Disability Teacher, Dr. Braxton, read the echo during this admission, and would like to follow the patient as an outpatient at hospital discharge. Dr. Gilbert had performed a pericardial window on 09/30/2019 s/p chest tube and pericardial drain.s/p V cefazolin perioperatively. Deep vein thrombosis (DVT) prophylaxis with heparin subcutaneous. Pain currently is not controlled on current [place], Percocet. ok to transfer to PCU per thoracic surgery. ok to dc home in am per surgery. 2. Acute pericarditis. prn norco, percocet,iv toradol. po naproxen as outpt 3. History of bipolar disorder, anxiety depression. Currently stable on no medications. disposition: dc home on Thursday. will need work slip depending on Thoracic surgery recommendations. VS, I&O, 24H, Fishbone Vital Signs/I&O Vital Signs Date Time Temp Pulse Resp B/P (MAP) Pulse Ox O2 Delivery O2 Flow Rate FiO2 10/03/19 08:00 98.1 85 20 142/76 (98) 89 Nasal Cannula 2.0 I&O- Last 24 Hours up to 6 AM 10/03/19 06:00 Intake Total 1340 ml Output Total 2105 ml Balance -765 ml Laboratory Data 24H LABS Laboratory Tests 2 10/03/19 04:57: Immature Granulocyte % (Auto) 0.4, Neutrophils (%) (Auto) 56.4, Lymphocytes (%) (Auto) 30.4, Monocytes (%) (Auto) 7.8H, Eosinophils (%) (Auto) 4.6H, Basophils (%) (Auto) 0.4, Neutrophils # (Auto) 5.5, Lymphocytes # (Auto) 2.9, Monocytes # (Auto) 0.8, Eosinophils # (Auto) 0.4, Basophils # (Auto) 0.0, Nucleated Red Blood Cells % (auto) 0.0, Anion Gap 4L, Glomerular Filtration Rate > 60.0, Calcium Level 8.6 CBC/BMP Laboratory Tests 10/03/19 04:57 Microbiology Microbiology 09/30/19 Acid Fast Stain, Received Pending 09/30/19 Mycobacterial Culture, Received Pending 09/30/19 Fungal Smear, Received Pending 09/30/19 Fungal Culture, Received Pending 09/30/19 Gram Stain - Final, Complete 09/30/19 Body Fluid Culture - Final, Complete 09/30/19 Anaerobic Culture - Final, Complete 09/28/19 - Final, Complete 09/28/19 Coronavirus COVID-19 PCR ([facility]) - Final, Complete 09/28/19 Blood Culture - Preliminary, Resulted No Growth after 72 hours. All specime... ADIA TINAJERO MD Oct 03, 2019 10:20
[2019-10-03] MEDS: COLCHICINE 0.6 MG TAB PO SCH ×2 (10:24→20:39)
--- NOTE | 2019-10-03 10:37 | REP ---
CHEST, TWO VIEWS: Two views of the chest are performed. Comparison made with prior study of 10/02/2019. The two right chest catheters have been removed. A tiny amount of air under the right diaphragm is no longer visualized. Bibasilar parenchymal and pleural opacities are unchanged. Heart and mediastinum are unchanged. Sternal wires are again noted. There is a tiny right apical pneumothorax. Electronically Signed by Clayton Olvera MD 10/03/2019 01:15 P
[2019-10-03] MEDS ORDERED: SLF 3 ML SYR IV PRN (12:15)
--- NOTE | 2019-10-03 12:42 | IPN ---
DATE OF SERVICE: 10/03/2019 This is now the third postoperative day for Mr. Collazo, status post a pericardial window, tube pericardiostomy. Yesterday, I removed his pleural tube. He has put out minimally from the pericardial tube today. He has a particularly flat affect today. It may be that I made unusual very rail express clerk rounds. His pain is being well controlled, however. His vital signs show a maximum temperature (Tmax) of 99.5 with a heart rate that ranges between 73 and 94 in a sinus rhythm, respiratory rate of 16-18 without the use of accessory muscles, who is 90% to 94% saturated on 2 liters nasal cannula, and whose blood pressure is ranging between 129/73 to 109/67. His intake and output for the past 24 hours has been recorded as 1210 in and 1480 out for a negativity of 270 mL. He has put out 30 mL out of the pericardial tube. Weight today is 102 kg compared to 106 kg yesterday. On physical examination, his lungs show equal breath sounds on either side, and they are much clearer than they have been. He still has some bronchophony at both bases. This is most likely secondary to lung compression. Percussion note is full to the diaphragm. Cardiac examination does not show a pericardial friction rub after removal of his chest tube. I hear no other murmurs, clicks, or gallops. I cannot feel his point of maximum impulse (PMI). Abdomen is soft and nontender. Bowel sounds are positive. There is no hepatomegaly. No costovertebral angle (CVA) tenderness. Extremities show no pretibial edema. No calf tenderness. No differential swelling of the upper extremities. His skin is warm, dry, and perfused without cyanosis or mottling, including that of the nail beds and the knees. Neck is supple. There is no jugular venous distention, no subcutaneous emphysema. Trachea is midline. Mouth shows his mucous membranes to be pink and moist. Lips and commissures without lesions. There is no thrush. Eyes show his pupils to be equal and reactive. Extraocular motions intact. Sclerae anicteric. Neurologic shows II-XII intact, along with gross motor and gross sensation intact. Gait is not tested. Psychiatric shows him to have a flat affect today but awake and alert and conversational. His white count today is 9.7 with a hemoglobin and hematocrit of 13.6 and 42.2, respectively. His platelet count is 310 and stable. Differential shows 56% neutrophils, 30% lymphocytes, and 7% monocytes. There are no immature forms. No toxic granulations. Electrolytes are normal with a BUN and creatinine of 18 and 0.84, with a potassium of 4.2. His viral antibodies are still pending. IMPRESSION: 1. Pericardial effusion with tamponade, relieved with a pericardial window and tube pericardiostomy. 2. Pericarditis, unknown etiology. 3. Bipolar disorder. 4. Status post removal of hyperplastic thymus in 2019. PLAN AND DISCUSSION: I have recommended that he remain on colchicine and antiinflammatories. I had him on Toradol intravenous (IV) for pain control. He can be transferred to the progressive care unit (PCU) today, and I expect him to be discharged tomorrow. Dr. Braxton is going to assume his care as an outpatient for his pericarditis. We have no positive proof of any particular cause and will probably assign it to a viral origin, non-COVID by exclusion.
[2019-10-03 14:42] LABS: HEPATITIS B SURFACE ANTIGEN NEGATIVE (NEGATIVE)
[2019-10-03] MEDS: SLF 3 ML SYR IV SCH ×2 (14:51→20:40)
[2019-10-03] MEDS: PERCOCET 5MG/325MG TAB PO PRN (17:17)
[2019-10-03 18:07] LABS: COXSACKIE TYPE A-16 IgM 1:20 titer (Neg:<1:10); COXSACKIE TYPE A-24 IgM 1:20 titer (Neg:<1:10); COXSACKIE TYPE A-7 IgM 1:20 titer (Neg:<1:10); COXSACKIE TYPE A-9 IgM 1:20 titer (Neg:<1:10); COXSACKIE TYPE B2 Negative (Neg:<1:8); COXSACKIE TYPE B3 Negative (Neg:<1:8); COXSACKIE TYPE B4 Negative (Neg:<1:8)
[2019-10-03] MEDS: NORCO, ANEXSIA 5/325MG TABLET (HYDROcodone/ACETAMINOPHEN) PO PRN (20:40)
[2019-10-04] VITALS: BP 134/68
[2019-10-04] MEDS: LEVALBUTEROL HFA 45MCG/ACT 15 GM INHALER INH SCH ×3 (01:59→13:52)
[2019-10-04 04:00] VITALS: BP 123/69
[2019-10-04] MEDS: PERCOCET 5MG/325MG TAB PO PRN ×3 (04:23→14:01)
[2019-10-04 04:28] LABS: BASO # 0.1 10^3/uL (0.0-0.2); BASO % 0.5 % (0.0-1.0); EOS # 0.5 10^3/uL (0.0-0.5); EOS % 5.1 % (0.0-3.0); HEMATOCRIT 43.9 % (42.0-52.0); HEMOGLOBIN 14.8 g/dl (13.5-17.5); LYMPH # 3.2 10^3/uL (1.5-5.0); LYMPH % 33.3 % (24.0-44.0); MEAN CORPUSCULAR HEMOGLOBIN 28.5 pg (27.0-33.0); MEAN CORPUSCULAR HGB CONC 33.7 g/dl (32.0-36.5); MEAN CORPUSCULAR VOLUME 84.4 fl (80.0-96.0); MONO # 0.8 10^3/uL (0.0-0.8); MONO % 7.7 % (0.0-5.0); NEUTROPHILS # 5.2 10^3/uL (1.5-8.5); NEUTROPHILS % 52.9 % (36.0-66.0); PLATELET COUNT, AUTOMATED 356 10^3/uL (150-450); WHITE BLOOD COUNT 9.7 10^3/uL (4.0-10.0)
[2019-10-04 04:45] LABS: BLOOD UREA NITROGEN 17 MG/DL (7-18); CALCIUM LEVEL 8.9 MG/DL (8.5-10.1); CARBON DIOXIDE LEVEL 27 MEQ/L (21-32); CHLORIDE LEVEL 107 MEQ/L (98-107); GLOMERULAR FILTRATION RATE > 60.0 (>60); GLUCOSE, FASTING 87 MG/DL (70-100); POTASSIUM SERUM 4.5 MEQ/L (3.5-5.1); SODIUM LEVEL 138 MEQ/L (136-145)
[2019-10-04] MEDS: SLF 3 ML SYR IV SCH (05:23)
[2019-10-04 08:00] VITALS: BP 127/60
[2019-10-04] MEDS: PANTOPRAZOLE 40MG TAB (PROTONIX) PO SCH (09:35)
[2019-10-04] MEDS: MOM 30ML SUSPENSION UDC PO SCH (09:35)
[2019-10-04] MEDS: DOCUSATE SODIUM 100 MG CAP PO SCH (09:35)
[2019-10-04] MEDS: HEPARIN SOD (PORCINE) 5000UNITS/ML VIAL (J1644 PER 1000UNITS) SC SCH (09:35)
[2019-10-04] MEDS: COLCHICINE 0.6 MG TAB PO SCH (09:35)
--- NOTE | 2019-10-04 11:36 | REP ---
CHEST, TWO VIEWS: Two views of the chest are performed and compared to a prior study of 10/03/2019. Tiny right apical pneumothorax is unchanged. The heart and mediastinum are unchanged. Mild bibasilar pleural and parenchymal opacities are essentially stable. There may be slight reduction in the small left effusion. Electronically Signed by Clayton Olvera MD 10/04/2019 05:08 P
[2019-10-04 12:00] VITALS: BP 123/82
[2019-10-04] MEDS ORDERED: NAPR-885 PO (13:04)
[2019-10-04] MEDS ORDERED: COLC1TAB13 PO (13:06)
[2019-10-04] MEDS ORDERED: OXYC1TAB23 PO (13:10)
[2019-10-04] MEDS ORDERED: ZOFR4TAB16 PO (13:11)
--- NOTE | 2019-10-04 18:59 | DS.PDOC ---
Discharge Summary General Date of Admission September 28, 2019 at 10:34 Date of Discharge 10/04/2019 Discharge Summary PROCEDURES PERFORMED DURING STAY: Pericardial window, distal sternectomy, tube pericardiostomy and bronchoscopy. ADMITTING DIAGNOSES: 1. Pericardial effusion, unknown origin. 2. Pericarditis, unknown cause. 3. Bipolar disorder. 4. Status post removal of a hyperplastic thymus in June. DISCHARGE DIAGNOSES: 1. Pericardial effusion with tamponade, relieved with a pericardial window and tube pericardiostomy. 2. Pericarditis, likely 2/2 coxsackie virus 3. Bipolar disorder. 4. Status post removal of hyperplastic thymus in 2019. COMPLICATIONS/CHIEF COMPLAINT: Pericardial Effusion. 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 due to 2 weeks of chest pain over the epigastrium worsening with deep breath and change of position.Denies dyspnea or fever, weight loss, or dysphagia. Pt reported some chills last night. He denies joint swelling but his knees have been aching, which he puts down to "arthritis." There is no small joint pain. Pt reported no rash that he noticed. HOSPITAL COURSE: CTA showed moderate pericardial effusion with iny bilateral pleural effusions with mild patchy atelectasis/infiltrate of each lower lobe, left greater than right. Pt's EKG and Tele showed acute ST elevation diffusely, and pt was started on Toradol and colchicine. He was noted to be tested pos for Coxsackie virus which is likely the cause of his pericarditis. Pt underwent pericardial window, distal sternectomy, tube pericardiostomy and bronchoscopy by Dr. Moraes on 09/30/2019. Pleural tube was removed 10/02/2019. On the day of discharge, pt denies any fever, chills, chest pain, palpitation, or dyspnea. He reported there is some pain at the site of the incision but no other complaints. DISCHARGE MEDICATIONS: Please see below. ALLERGIES: Please see below. PHYSICAL EXAMINATION ON DISCHARGE: VITAL SIGNS: Please see below. GENERAL: Alert and awake, not in acute distress HEENT: Head normocephalic, atraumatic, pupils equal and round b/l NECK: supple CARDIOVASCULAR EXAMINATION: RRR, no murmur RESPIRATORY EXAMINATION: CTA b/l, no rales, wheezing, or rhonchi ABDOMINAL EXAMINATION: soft, no guarding, no distention, bowel sound aus in all 4 quadrants EXTREMITIES: Moving all extremities spontaneously SKIN: Tape covering in the sternal region with healing scar in the sternal region NEUROLOGICAL EXAMINATION: Memory and cognitive function grossly intact PSYCHIATRIC EXAMINATION: Mood stable LABORATORY DATA: Please see below. IMAGING: CT chest: Moderate pericardial effusion, tiny bilateral pleural effusions with mild patchy atelectasis or infiltrate, left greater than right. No PE or aortic dissection. Echocardiogram 09/28/2019: Large pericardial effusion. Moderate concentric left ventricular hypertrophy. LVEF of 60-65%. Normal left ventricular diastolic function. Echocardiogram 09/30/2019: Large pericardial effusion most likely transudate. LVEF 75%. Hyperdynamic right ventricular Elevated central venous pressure. Multiple CXR showed Bibasilar parenchymal and pleural opacities and tiny right apical pneumothorax as well as sternal wires are.Two chest tubes are not visualized in 10/03/2019 and 10/04/2019 CXR PROGNOSIS: Good ACTIVITY: [As tolerated]. DIET: As tolerated DISPOSITION: 01 Home, Self-Care. DISCHARGE PLAN AND INSTRUCTIONS: 1. Take colchicine and naproxen as prescribed 2. Follow up with PCP in 1 wk 3. Follow up with cardiology in 2 wks ITEMS TO FOLLOWUP ON ON OUTPATIENT: 1. Pericarditis DISCHARGE CONDITION: [Stable]. TIME SPENT ON DISCHARGE: Greater than 40 minutes. Vital Signs/I&Os Vital Signs Date Time Temp Pulse Resp B/P (MAP) Pulse Ox O2 Delivery O2 Flow Rate FiO2 10/04/19 14:01 18 10/04/19 12:00 96.9 96 123/82 (96) 91 Room Air 10/03/19 20:00 2.0 I&O- Last 24 Hours up to 6 AM 10/04/19 06:00 Intake Total 360 ml Output Total 1300 ml Balance -940 ml Laboratory Data Labs 24H Laboratory Tests 2 10/04/19 03:58: Immature Granulocyte % (Auto) 0.5, Neutrophils (%) (Auto) 52.9, Lymphocytes (%) (Auto) 33.3, Monocytes (%) (Auto) 7.7H, Eosinophils (%) (Auto) 5.1H, Basophils (%) (Auto) 0.5, Neutrophils # (Auto) 5.2, Lymphocytes # (Auto) 3.2, Monocytes # (Auto) 0.8, Eosinophils # (Auto) 0.5, Basophils # (Auto) 0.1, Nucleated Red Blood Cells % (auto) 0.0, Anion Gap 4L, Glomerular Filtration Rate > 60.0, Calcium Level 8.9 CBC/BMP Laboratory Tests 10/04/19 03:58 Microbiology Microbiology 09/30/19 Acid Fast Stain, Received Pending 09/30/19 Mycobacterial Culture, Received Pending 09/30/19 Fungal Smear, Received Pending 09/30/19 Fungal Culture, Received Pending 09/30/19 Gram Stain - Final, Complete 09/30/19 Body Fluid Culture - Final, Complete 09/30/19 Anaerobic Culture - Final, Complete 09/28/19 - Final, Complete 09/28/19 Coronavirus COVID-19 PCR ([facility]) - Final, Complete 09/28/19 Blood Culture - Final, Complete NO GROWTH AFTER 5 DAYS Discharge Medications Scheduled Colchicine (Colchicine) 0.6 Mg Tablet, 0.6 MG PO BID Naproxen (Naproxen) 500 Mg Tablet, 500 MG PO BID for pain Ondansetron HCl (Zofran) 4 Mg Tablet, 4 MG PO Q6H Scheduled PRN Oxycodone HCl/Acetaminophen (Oxycodone-Acetaminophen 5-325) 1 Each Tablet, 1 TAB PO TIDP PRN for pain Allergies Coded Allergies: No Known Allergies (Verified Allergy, Unknown, 05/29/19) GME ATTESTATION GME ATTESTATION My faculty preceptor for this patient encounter was physically present during the encounter and was fully available. All aspects of the patient interview, examination, medical decision making process, and medical care plan development were reviewed and approved by the faculty preceptor. The faculty preceptor is aware and concurs with the plan as stated in the body of this note and will attest to such by his/her cosignature. JALEN MORRIS DO Oct 04, 2019 18:59
[2019-10-06 00:07] LABS: ANTI DS-DNA AB Negative (Negative); CMV QUANT DNA PCR (PLASMA) Negative (Negative); CYTOMEGALOVIRUS IgM ANTIBODY <30.0 AU/mL (0.0-29.9); EBV VIRAL CAPSID AG IgM <36.0 U/mL (0.0-35.9); HSV TYPE I IgM AB <1:10 titer (<1:10); HSV TYPE II IgM ABY <1:10 titer (<1:10); RNP ANTIBODY < 0.2 AI (0.0-0.9); SMITHS ANTIBODY < 0.2 AI (0.0-0.9)
== END 2019-10-04 14:07 | disposition home or self-care (01) | DRG 180 ==
LOC: M ED 08:33 → M ED INP 10:34 → ENRESERV 11:45 → M ICU 12:20 → M 4MAIN 09-29 22:00 → M ICU 09-30 13:46 → M PCU 10-03 11:31
PROVIDERS: ADMIT Thoracic Surgery (Cardiothoracic Vascular Surgery); ATTEND Thoracic Surgery (Cardiothoracic Vascular Surgery)
PROC: 0W9D0ZX Drainage of Pericardial Cavity, Open Approach, Diagnostic (ICD-10-PCS; principal; 2019-09-30 14:40)
DX: B33.23 Viral pericarditis (principal); I31.4 Cardiac tamponade; F31.9 Bipolar disorder, unspecified; F41.9 Anxiety disorder, unspecified; Z87.891 Personal history of nicotine dependence

== ENCOUNTER → 2019-10-10 | Outpatient (CLI) | payer MEDICARE, MEDICAID ==
[~2019-10-10] MED LIST changes: +COLC0.6T47 PO; +NAPR-885 PO; +PRIL20TA2 PO
--- NOTE | 2019-10-10 17:16 | REPPI ---
REASON: Followup. Latest prior for comparison is 10/04/2019. Chronic bilateral lower lung field curvilinear opacities are noted. The opacity seen previously in the left lower lobe has improved. The CP angles are sharp today, previously blunted on the left. There are no new abnormal opacities. There is no change in the cardiomediastinal silhouette or imaged osseous structures. IMPRESSION: Improvement but with stable chronic changes, as described above. Electronically Signed by Jarod Estrada DO 10/10/2019 07:11 P
== END ==
LOC: M PLAIMG 09:35
PROVIDERS: ATTEND Thoracic Surgery (Cardiothoracic Vascular Surgery)
DX: D38.3 Neoplasm of uncertain behavior of mediastinum (principal); J98.4 Other disorders of lung

== ENCOUNTER 2019-11-19 23:48 | Inpatient (IN) | payer MEDICARE, MEDICAID ==
[~2019-11-19] VITALS: Ht 182.9 cm; Wt 103.1 kg
[~2019-11-19 23:48] MED LIST changes: -COLC0.6T47 PO; +COLC1TAB13 PO; -PRIL20TA2 PO
[2019-11-20 00:51] LABS: BASO # 0.1 10^3/uL (0.0-0.2); BASO % 0.4 % (0.0-1.0); EOS # 0.2 10^3/uL (0.0-0.5); EOS % 1.7 % (0.0-3.0); HEMATOCRIT 48.3 % (42.0-52.0); HEMOGLOBIN 16.2 g/dl (13.5-17.5); LYMPH # 4.1 10^3/uL (1.5-5.0); MEAN CORPUSCULAR HEMOGLOBIN 27.6 pg (27.0-33.0); MEAN CORPUSCULAR HGB CONC 33.5 g/dl (32.0-36.5); MEAN CORPUSCULAR VOLUME 82.3 fl (80.0-96.0); MONO # 0.9 10^3/uL (0.0-0.8); MONO % 6.8 % (0.0-5.0); NEUTROPHILS # 8.4 10^3/uL (1.5-8.5); NEUTROPHILS % 60.7 % (36.0-66.0); PLATELET COUNT, AUTOMATED 299 10^3/uL (150-450); RED BLOOD COUNT 5.87 10^6/uL (4.30-6.10); WHITE BLOOD COUNT 13.8 10^3/uL (4.0-10.0)
[2019-11-20 00:54] LABS: BLOOD UREA NITROGEN 15 MG/DL (7-18); CARBON DIOXIDE LEVEL 27 MEQ/L (21-32); CHLORIDE LEVEL 109 MEQ/L (98-107); CREATININE FOR GFR 0.98 MG/DL (0.70-1.30); GLOMERULAR FILTRATION RATE > 60.0 (>60); GLUCOSE, FASTING 96 MG/DL (70-100); SODIUM LEVEL 141 MEQ/L (136-145)
[2019-11-20] MEDS ORDERED: ISOVUE-370 76% 100ML VIAL As Ordered ONE (01:13)
[2019-11-20 01:25] LABS: CK-MB VALUE MASS < 1.0 NG/ML (<3.6); CPK CREATINE PHOSPHOKINASE 63 U/L (39-308); MB/CK RELATIVE INDEX 1.59 (< OR =4); TROPONIN I < 0.02 NG/ML (< 0.10)
--- NOTE | 2019-11-20 02:58 | REPVR ---
PROCEDURE INFORMATION: Exam: CT Angiography Chest with Contrast Exam date and time: 11/20/19 (2:21am) Age: 29 years old Clinical indication: Chest pain and dyspnea. History of pericardial effusion. TECHNIQUE: Imaging protocol: Computed tomographic angiography of the chest with intravenous contrast. 3D rendering: MIP and/or 3D reconstructed images were created by the technologist. Radiation optimization: All CT scans at this facility use at least one of these dose optimization techniques: automated exposure control; mA and/or kV adjustment per patient size (includes targeted exams where dose is matched to clinical indication); or iterative reconstruction. Contrast material: Isovue 370 Contrast volume: 75 ml Contrast route: IV COMPARISON: CTA CHEST of 09/28/19 FINDINGS: Pulmonary arteries: Normal. No pulmonary emboli. Aorta: Unremarkable. No aortic aneurysm. No aortic dissection. Lungs: No masses. Streaky and patchy parenchymal changes at each lung base again noted. Bibasilar atelectasis again seen. Pleural space: Unremarkable. No pneumothorax. Minimal pleural effusions. Heart: No cardiomegaly. Minimal pericardial effusion (less fluid than 2 months ago). Lymph nodes: Unremarkable. No enlarged lymph nodes. Bones/joints: Unremarkable. No acute fracture. Soft tissues: Unremarkable. IMPRESSION: Streaky and patchy parenchymal changes at each lung base again seen. Minimal bilateral pleural effusions. Minimal pericardial effusion (less fluid than 2 months ago). No filling defects suspicious for pulmonary emboli are seen. There is no CT evidence of aortic dissection nor leakage. No aortic aneurysm is appreciated. Electronically signed by: Roberta Jalloh On 11/20/2019 02:57:28 AM
[2019-11-20] MEDS ORDERED: ACETAMINOPHEN TAB 650MG DOSE (2X325MG) PO PRN (04:45)
[2019-11-20] MEDS ORDERED: NAPROXEN 250 MG TAB PO PRN (04:45)
[2019-11-20] MEDS ORDERED: NS 1,000 ML IV SCH (04:45)
[2019-11-20 05:11] LABS: CK-MB VALUE MASS < 1.0 NG/ML (<3.6); CPK CREATINE PHOSPHOKINASE 50 U/L (39-308); TROPONIN I < 0.02 NG/ML (< 0.10)
[2019-11-20] MEDS ORDERED: COLCHICINE 0.6 MG TAB PO SCH (05:17)
--- NOTE | 2019-11-20 05:17 | HPEPDOC ---
General Date of Admission 11/20/2019 Date of Service: Nov 20, 2019 Chief Complaint The patient is a 29-year-old male Who presented to the hospital with shortness of breath History of Present Illness Patient is a 29-year-old male with a PMhx of Bipolar disorder, Recent history of Pericarditis (likely 2/2 Coxsackie virus) with pericardial effusion / tamponade (relieved with pericardial window / tube pericardiostomy) who presented to the ER with shortness of breath. Patient was recently admitted to the hospital on 09/27 for CP / SOB was found to be secondary to pericarditis with pericardial effusion. Patient was subsequently discharged on 10/03. Patient presented to emergency room with progressive shortness of breath over the last 2 days. . He has also reported central chest pain that he reported initially as a 10/10 that is improved to 4-5/10. Describes the pain as a sharp, stabbing intensity, occurring intermittently radiating to his right neck and shoulder. Denies any alleviating factors, but reports aggravation with laying flat. Patient is unaware of any fevers or chills at home. He denies any nausea, vomiting, abdominal pain or any discomfort with urination. Patient did report a single episode of a loose bowel movement this morning. Patient reports that he had initially lost 10 pounds but has subsequently gained back 10 pounds. Reports appetite is normal. Home Medications No Active Prescriptions or Reported Meds Allergies Coded Allergies: No Known Allergies (Verified Allergy, Unknown, 05/29/19) Past Medical History Medical History Bipolar disorder Recent history of Pericarditis (likely 2/2 Coxsackie virus) with pericardial effusion / tamponade (relieved with pericardial window / tube pericardiostomy) Surgical History Excision of hyperplastic thymus 06/28/2019; required yin-median sternotomy Hernia repair as Family History - Reviewed and noncontributory to this hospitalization Social History - Denies the use of alcohol, tobacco or illicit drugs - Denies recent travel or sick contacts - Lives with girlfriend - Occupation; works at [employer] Review of Systems Other systems - Vitals: BP [113/63], HR [104], RR [20], Sat [95%RA], Temp [98.4F] - General: Lying in bed, No acute distress, Speaking in full sentences, AAOx3 - HEENT: NC, AT, PERRLA - CVS: RRR, +S1S2, +S3 - Lungs: Fair air entry bilaterally, No appreciable wheezing / rales / rhonchi - Abdomen: Soft, Non-distended, Non-tender - Extremities: No lower extremity edema, No calf tenderness - Neuro: No focal motor or sensory deficit - Skin: No visible rashes Vital Signs Vital Signs Date Time Temp Pulse Resp B/P (MAP) Pulse Ox O2 Delivery O2 Flow Rate FiO2 11/20/19 03:18 79 93 11/20/19 03:15 114/57 (76) 11/19/19 23:49 98.3 18 Room Air Laboratory Data Labs 24H Laboratory Tests 2 11/20/19 00:16: Immature Granulocyte % (Auto) 0.4, Neutrophils (%) (Auto) 60.7, Lymphocytes (%) (Auto) 30.0, Monocytes (%) (Auto) 6.8H, Eosinophils (%) (Auto) 1.7, Basophils (%) (Auto) 0.4, Neutrophils # (Auto) 8.4, Lymphocytes # (Auto) 4.1, Monocytes # (Auto) 0.9H, Eosinophils # (Auto) 0.2, Basophils # (Auto) 0.1, Nucleated Red Blood Cells % (auto) 0.0, Anion Gap 5L, Glomerular Filtration Rate > 60.0, Calcium Level 9.0, Total Creatine Kinase 63, Creatine Kinase MB < 1.0, Creatine Kinase MB Relative Index 1.59, Troponin I < 0.02 11/20/19 00:56: POC pH (Misc Panel) 7.389, POC Base Excess (Misc Panel) 0.0, POC Saturated Percent O2 (Misc) 94L, POC pO2 (Misc Panel) 70.0L, POC pCO2 (Misc Panel) 41.9, POC HCO3 (Misc Panel) 25.3, POC Total CO2 (Misc Panel) 27.0 11/20/19 04:22: CBC/BMP Laboratory Tests 11/20/19 00:16 Microbiology Microbiology 11/20/19 Respiratory Virus Panel (PCR) ([facility]) - Final, Complete 11/20/19 Blood Culture, Received Pending Plan / VTE VTE Prophylaxis Ordered?: Yes Plan Plan Chest pain / SOB - possibly 2/2 acute pericarditis - Patient is presented to the emergency room with shortness of breath and chest pain that have been progressive over the last 2 days - Physical is unrevealing / hemodynamically stable and afebrile - Upon arrival to ER, patient was hypoxic, confirmed on ABG, pO2 of 70 - Lab work reveals leukocytosis with monocyte predominance - Troponin times first set is negative; awaiting second set; will continue to trend - EKG reviewed and compared to prior - Will trend troponins / continue telemetry / will get ECHO - Will start Colchicine and Naproxen Recent history of Pericarditis - Was thought to be likely 2/2 Coxsackie virus - Had developed pericardial effusion / tamponade s/p pericardial window / tube pericardiostomy 09/[address] Gilbert - Patient was discharged with Colchicine and Naproxen Bipolar disorder - Currently not on medications GI prophylaxis - Will start Protonix DVT prophylaxis - Will start Heparin FRANK CHENG MD Nov 20, 2019 04:43
[2019-11-20 05:33] LABS: C REACTIVE PROTEIN QUANTITATIV 1.82 MG/DL (0.00-0.30)
[2019-11-20 05:56] LABS: ERYTHROCYTE SEDIMENTATION RATE 5 mm/hr (0-15)
[2019-11-20] MEDS ORDERED: HEPARIN SOD (PORCINE) 5000UNITS/ML 1ML VIAL/SYRINGE SC SCH (06:00)
[2019-11-20 06:20] VITALS: BP 145/89
[2019-11-20] MEDS ORDERED: PRED20TA PO (07:57)
[2019-11-20] MEDS ORDERED: COLC1TAB13 PO (07:58)
[2019-11-20] MEDS ORDERED: PRIL20TA2 PO (07:58)
[2019-11-20 08:00] VITALS: BP 139/80
[2019-11-20 08:09] LABS: BASO % 0.3 % (0.0-1.0); EOS # 0.3 10^3/uL (0.0-0.5); EOS % 2.2 % (0.0-3.0); HEMATOCRIT 47.7 % (42.0-52.0); HEMOGLOBIN 15.7 g/dl (13.5-17.5); LYMPH # 2.8 10^3/uL (1.5-5.0); LYMPH % 24.1 % (24.0-44.0); MEAN CORPUSCULAR HEMOGLOBIN 27.4 pg (27.0-33.0); MEAN CORPUSCULAR HGB CONC 32.9 g/dl (32.0-36.5); MEAN CORPUSCULAR VOLUME 83.2 fl (80.0-96.0); MONO # 0.9 10^3/uL (0.0-0.8); NEUTROPHILS # 7.5 10^3/uL (1.5-8.5); NEUTROPHILS % 64.9 % (36.0-66.0); PLATELET COUNT, AUTOMATED 282 10^3/uL (150-450); RED BLOOD COUNT 5.73 10^6/uL (4.30-6.10); WHITE BLOOD COUNT 11.6 10^3/uL (4.0-10.0)
[2019-11-20 08:27] LABS: BLOOD UREA NITROGEN 13 MG/DL (7-18); CALCIUM LEVEL 8.9 MG/DL (8.5-10.1); CARBON DIOXIDE LEVEL 26 MEQ/L (21-32); CHLORIDE LEVEL 110 MEQ/L (98-107); CREATININE FOR GFR 0.95 MG/DL (0.70-1.30); GLOMERULAR FILTRATION RATE > 60.0 (>60); GLUCOSE, FASTING 95 MG/DL (70-100); MAGNESIUM LEVEL 2.1 MG/DL (1.8-2.4); POTASSIUM SERUM 4.3 MEQ/L (3.5-5.1); SODIUM LEVEL 142 MEQ/L (136-145)
[2019-11-20 08:29] LABS: CK-MB VALUE MASS < 1.0 NG/ML (<3.6); CPK CREATINE PHOSPHOKINASE 50 U/L (39-308); TROPONIN I < 0.02 NG/ML (< 0.10)
--- NOTE | 2019-11-20 08:51 | ECGEPIP ---
[facility] - ED Test Date: 2019-11-20 Pat Name: JOSE MACHADO Department: Room: - Gender: Male Ammonia Solution Preparer: reanna : 1990 Requested By: GUILLE DRAKE Order Number: [id number] Reading MD: Gui Patel Measurements Intervals [place] Rate: 90 P: 26 MO: 173 QRS: -5 QRSD: 90 T: 54 QT: 351 QTc: 430 Interpretive Statements SINUS RHYTHM POSSIBLE LEFT ATRIAL ENLARGEMENT POSSIBLE INCOMPLETE RIGHT BUNDLE BRANCH BLOCK BENIGN EARLY REPOLARIZATION NONSPECIFIC ST & T-WAVE ABNORMALITY SIMILAR TO 09/28/19 Electronically Signed on 11-20-2019 8:51:26 EDT by Gui Patel
[2019-11-20] MEDS ORDERED: PANTOPRAZOLE 40MG TAB (PROTONIX) PO SCH (09:00)
[2019-11-20] MEDS ORDERED: predniSONE 20 MG TAB PO SCH (09:00)
--- NOTE | 2019-11-21 10:07 | ECHO ---
DATE OF PROCEDURE: 11/20/2019 DATE OF : 1990 REFERRING PROVIDER: Bruce Mcdermott DO PATIENT LOCATION: Room 3225 REASON FOR THE ECHOCARDIOGRAM: Chest pain. History of pericardial effusion. 2-D MEASUREMENTS: IVS: 1.2 cm LV: 4.6 cm LVPW: 1.1 cm LA: 4.3 cm Aorta: 3.2 cm RV: 3.1 cm IVC: 2.1 cm DOPPLER MEASUREMENTS: Peak velocity across the aortic valve: 1.0 m/s Peak velocity across the LVOT: 0.8 m/s Mitral E: 0.7, Mitral A: 0.55 with a ratio of 1.3 Tricuspid valve velocity: 2.1 m/s 2-D COMMENTS: 1. Normal left ventricular size, wall thickness, and low normal global left ventricular systolic function. The estimated ventricular systolic ejection fraction is 55-60%. 2. The left atrium appeared to be mildly enlarged. Normal right atrium and right ventricle. 3. The atrial septum appeared to be normal without evidence of defect or shunt. 4. Normal aortic root. 5. Trace to small pericardial effusion noted, no evidence of cardiac tamponade. 6. The aortic valve, mitral valve, tricuspid valve, and pulmonic valve appeared to be normal as well as the proximal pulmonary artery branches. 7. The inferior vena cava was mildly enlarged, central venous pressure might be elevated. DOPPLER: It detects trace tricuspid regurgitation. The calculated pulmonary artery systolic pressure was normal. Assessment of the left ventricular diastolic function also was normal. IMPRESSION: 1. Low normal global left ventricular systolic function. Assessment of the left ventricular diastolic function also appeared to be normal. 2. Trace tricuspid regurgitation with a normal calculated pulmonary artery systolic pressure. 3. Trace to small pericardial effusion, no evidence of cardiac tamponade. 4. The inferior vena cava was mildly enlarged. 5. This was compared to prior study on 09/30/2019 and at that time significantly more pericardial effusion was noted. MTDD
--- NOTE | 2020-03-13 20:54 | DS.PDOC ---
Discharge Summary General Date of Admission Nov 20, 2019 at 04:32 Date of Discharge 11/20/19 Discharge Summary DISCHARGE DIAGNOSES: Recurrent pericarditis Bipolar disorder DISCHARGE MEDICATIONS: Please see below. DISCHARGE INSTRUCTIONS: Immediate fu with pcp and underwriting service representative within 5-7days of hospital discharge. Return to the ER if recurrent symptoms. HOSPITAL COURSE: 29-year-old male with history of bipolar disorder and coxsackievirus induced pericarditis with pericardial effusion and tamponade on status post 2 pericardiostomy and pericardial window presented to the emergency room with increasing shortness of breath. Patient was admitted to the hospital 09/28/2019 for chest pain was found to have a pericardial effusion and discharged on 10/04/2019. Patient complaining of substernal chest pain 10 out of 10, sharp and stabbing, radiating to the right neck and shoulder. Unable to lay fat without fever or chills at home. CT chest shows streaky and patchy parenchymal changes at each lung base. Again seen. Minimal bilateral pleural effusions, minimal pericardial effusion less than 2 months ago. No filling defects suspicious for pulmonary emboli. No CT evidence of aortic dissection or leakage. No aortic aneurysm is appreciated. Echocardiogram showed EF of 55-60% with normal left ventricle size, wall thickness and low normal global left ventricular systolic function. Left atrium appeared to be mildly enlarged, normal right atrium and right ventricle normal aortic root, trace to small pericardial effusion. No evidence of cardiac tamponade. Due to complaints of shortness of breath, Respiratory panel was obtained which was negative for Covid, blood culture was negative after 5 days, and patient was saturating 95-96% on room air on hospital discharge. ALLERGIES: Please see below. PHYSICAL EXAMINATION ON DISCHARGE: VITAL SIGNS: Please see below. General no conversational dyspnea awake, alert, oriented 3 . HEENT no JVD, no thyromegaly, no cervical lymphadenopathy. Moist mucous membranes . Lungs diminished at the bases. No wheezing, rales or rhonchi . Heart S1, S2, sinus rhythm, no murmurs, rubs or gallops. Abdomen soft, nontender, nondistended, positive bowel sounds 4 quadrants. No CVA tenderness. No abdominal bruit . Extremities no lower extremity edema or calf tenderness LABORATORY DATA: Please see below. ECHOCARDIOGRAM 1. Normal left ventricular size, wall thickness, and low normal global left ventricular systolic function. The estimated ventricular systolic ejection fraction is 55-60%. 2. The left atrium appeared to be mildly enlarged. Normal right atrium and right ventricle. 3. The atrial septum appeared to be normal without evidence of defect or shunt. 4. Normal aortic root. 5. Trace to small pericardial effusion noted, no evidence of cardiac tamponade. 6. The aortic valve, mitral valve, tricuspid valve, and pulmonic valve appeared to be normal as well as the proximal pulmonary artery branches. 7. The inferior vena cava was mildly enlarged, central venous pressure might be elevated. DOPPLER: It detects trace tricuspid regurgitation. The calculated pulmonary artery systolic pressure was normal. Assessment of the left ventricular diastolic function also was normal. Exam: CT Angiography Chest with Contrast Exam date and time: 11/20/19 (2:21am) Age: 29 years old Clinical indication: Chest pain and dyspnea. History of pericardial effusion. TECHNIQUE: Imaging protocol: Computed tomographic angiography of the chest with intravenous contrast. 3D rendering: MIP and/or 3D reconstructed images were created by the technologist. Radiation optimization: All CT scans at this facility use at least one of these dose optimization techniques: automated exposure control; mA and/or kV adjustment per patient size (includes targeted exams where dose is matched to clinical indication); or iterative reconstruction. Contrast material: Isovue 370 Contrast volume: 75 ml Contrast route: IV COMPARISON: CTA CHEST of 09/28/19 FINDINGS: Pulmonary arteries: Normal. No pulmonary emboli. Aorta: Unremarkable. No aortic aneurysm. No aortic dissection. Lungs: No masses. Streaky and patchy parenchymal changes at each lung base again noted. Bibasilar atelectasis again seen. Pleural space: Unremarkable. No pneumothorax. Minimal pleural effusions. Heart: No cardiomegaly. Minimal pericardial effusion (less fluid than 2 months ago). Lymph nodes: Unremarkable. No enlarged lymph nodes. Bones/joints: Unremarkable. No acute fracture. Soft tissues: Unremarkable. IMPRESSION: Streaky and patchy parenchymal changes at each lung base again seen. Minimal bilateral pleural effusions. Minimal pericardial effusion (less fluid than 2 months ago). No filling defects suspicious for pulmonary emboli are seen. There is no CT evidence of aortic dissection nor leakage. No aortic aneurysm is appreciated. Electronically signed by: Roberta Jalloh On 11/20/2019 02:57:28 AM TIME SPENT ON DISCHARGE: 30 minutes Discharge Medications Scheduled Omeprazole Magnesium (Prilosec Otc) 20 Mg Tablet.dr, 20 MG PO DAILY Prednisone (Prednisone) 20 Mg Tablet, 40 MG PO DAILY Scheduled PRN Colchicine (Colchicine) 0.6 Mg Tablet, 0.6 MG PO BID PRN for chest pain Allergies Coded Allergies: No Known Allergies (Verified Allergy, Unknown, 05/29/19) ADIA TINAJERO MD Mar 13, 2020 20:54
== END 2019-11-20 12:29 | disposition home or self-care (01) | DRG 313 ==
LOC: M ED 23:48 → M ED INP 11-20 04:32 → ENRESERV 11-20 05:28 → M PCU 11-20 06:23
PROVIDERS: ADMIT Internal Medicine; ATTEND Internal Medicine
DX: R07.9 Chest pain, unspecified (principal); F31.9 Bipolar disorder, unspecified

== ENCOUNTER → 2020-02-14 | Outpatient (CLI) | payer MEDICARE, MEDICAID ==
[~2020-02-14] MED LIST changes: +PRIL20TA2 PO
--- NOTE | 2020-02-17 13:18 | REP ---
NONCONTRAST CHEST CT CLINICAL: Shortness of breath and chest pain. TECHNIQUE: Axial noncontrast images from the thoracic inlet to the upper abdomen with coronal and sagittal reformations. COMPARISON: 11/20/2019. FINDINGS: The bilateral lung allen are well-aerated and clear. No acute consolidation, significant nodule or mass. No effusion or pneumothorax. Previously noted streaky atelectasis at the bilateral lung bases, small pleural effusions, and pericardial effusion have resolved. Mediastinum demonstrates normal thoracic aorta, pulmonary vasculature, and heart/pericardium by noncontrast evaluation. No axillary, hilar, or mediastinal adenopathy. The thyroid gland appears normal. Surrounding musculoskeletal structures without acute abnormality noted. Evidence for prior sternotomy. IMPRESSION: Normal noncontrast chest CT. No acute mediastinal or pulmonary parenchymal process. Previously noted subtle findings have resolved. MTDD
== END ==
LOC: M RAD 17:18
PROVIDERS: ATTEND Thoracic Surgery (Cardiothoracic Vascular Surgery)
DX: R06.02 Shortness of breath (principal); R07.89 Other chest pain

== ENCOUNTER → 2021-05-21 | Outpatient (CLI) | payer MEDICARE, MEDICAID ==
[~2021-05-21] MED LIST changes: +COLC0.6T47 PO; -COLC1TAB13 PO
== END ==
LOC: M RAD 11:11
PROVIDERS: ATTEND Nurse Practitioner Family
DX: R06.02 Shortness of breath (principal); R07.9 Chest pain, unspecified

== ENCOUNTER → 2021-05-31 | Outpatient (CLI) | payer MEDICARE, MEDICAID ==
[~2021-05-31] MED LIST changes: +ERGO500029 PO; +FAMO20TA PO; +FENO134C PO; +OMEP40CA4 PO; +ONDA4TAB6 PO; +SIMV20TA22 PO
== END ==
LOC: M RAD 10:03
PROVIDERS: ATTEND Nurse Practitioner Family
DX: R06.00 Dyspnea, unspecified (principal); Z87.891 Personal history of nicotine dependence

== ENCOUNTER → 2021-06-13 | Outpatient (CLI) | payer MEDICARE, MEDICAID ==
[~2021-06-13] MED LIST changes: -FAMO20TA PO; -ONDA4TAB6 PO
== END ==
LOC: M LABSMTC 09:54
PROVIDERS: ATTEND Anesthesiology
DX: Z01.812 Encounter for preprocedural laboratory examination (principal); Z11.52 Encounter for screening for COVID-19

== ENCOUNTER 2021-06-18 10:08 | Day surgery (SDC) | payer MEDICARE, MEDICAID ==
[~2021-06-18] VITALS: Ht 182.9 cm; Wt 107.5 kg
[~2021-06-18 10:08] MED LIST changes: +NS 1,000 ML IV ONE
[2021-06-18] MEDS ORDERED: propofoL 200 MG/20 ML VIAL As Ordered ONE (11:54)
[2021-06-18] MEDS ORDERED: fentaNYL 100 MCG/2 ML INJECTION As Ordered ONE (11:54)
[2021-06-18] MEDS ORDERED: LIDOCAINE 2% 100MG/5ML SDV (FOR ANES.) As Ordered ONE (12:18)
[2021-06-18 12:45] VITALS: BP 125/71
== END 2021-06-18 13:23 | disposition home or self-care (01) ==
LOC: M OPP 10:08
PROVIDERS: ATTEND Internal Medicine Gastroenterology
DX: K52.9 Noninfective gastroenteritis and colitis, unspecified (principal); K64.8 Other hemorrhoids; Z80.0 Family history of malignant neoplasm of digestive organs; K21.00 Gastro-esophageal reflux disease with esophagitis, without bleeding; K29.60 Other gastritis without bleeding; R12 Heartburn; Z79.899 Other long term (current) drug therapy
CPT/HCPCS: 43239; 45380; 88305; 88342; J3010

== ENCOUNTER 2021-06-23 08:41 | Emergency (ER) | payer MEDICARE, MEDICAID ==
[~2021-06-23] VITALS: Ht 182.9 cm; Wt 106.8 kg
[~2021-06-23 08:41] MED LIST changes: -NS 1,000 ML IV ONE
[2021-06-23 10:06] LABS: BASO % 0.4 % (0.0-1.0); EOS # 0.2 10^3/uL (0.0-0.5); EOS % 2.1 % (0.0-3.0); HEMATOCRIT 48.5 % (42.0-52.0); HEMOGLOBIN 16.1 g/dl (13.5-17.5); LYMPH # 2.5 10^3/uL (1.5-5.0); MEAN CORPUSCULAR HEMOGLOBIN 28.3 pg (27.0-33.0); MEAN CORPUSCULAR HGB CONC 33.2 g/dl (32.0-36.5); MEAN CORPUSCULAR VOLUME 85.4 fl (80.0-96.0); MONO # 0.7 10^3/uL (0.0-0.8); MONO % 6.8 % (2.0-8.0); NEUTROPHILS # 6.6 10^3/uL (1.5-8.5); NEUTROPHILS % 65.4 % (36.0-66.0); PLATELET COUNT, AUTOMATED 269 10^3/uL (150-450); RED BLOOD COUNT 5.68 10^6/uL (4.30-6.10); WHITE BLOOD COUNT 10.2 10^3/uL (4.0-10.0)
[2021-06-23] MEDS ORDERED: ONDANSETRON 4 MG ORAL DISINTEGRATING TAB PO ONE (10:30)
[2021-06-23] MEDS ORDERED: DICYCLOMINE 10 MG CAP PO ONE (10:30)
[2021-06-23] MEDS ORDERED: GI COCKTAIL 50ML BTL(HYOSCYAMINE/MAALOX/LIDOCAINE VISCOUS)(1:3:1) PO ONE (10:30)
[2021-06-23 10:36] LABS: ALBUMIN 3.9 GM/DL (3.2-5.2); ALT/SGPT 31 U/L (12-78); BILIRUBIN,DIRECT 0.1 MG/DL (0.0-0.2); BILIRUBIN,TOTAL 0.3 MG/DL (0.2-1.0); BLOOD UREA NITROGEN 14 MG/DL (7-18); CARBON DIOXIDE LEVEL 27 MEQ/L (21-32); CHLORIDE LEVEL 109 MEQ/L (98-107); CREATININE FOR GFR 1.03 MG/DL (0.70-1.30); GLOMERULAR FILTRATION RATE > 60.0 (>60); GLUCOSE, FASTING 92 MG/DL (70-100); LIPASE 178 U/L (73-393); POTASSIUM SERUM 4.4 MEQ/L (3.5-5.1); SODIUM LEVEL 141 MEQ/L (136-145); TOTAL PROTEIN 6.7 GM/DL (6.4-8.2)
[2021-06-23] MEDS ORDERED: FAMO20TA PO (12:53)
[2021-06-23] MEDS ORDERED: ONDA4TAB6 PO (12:56)
[2021-06-23 13:18] VITALS: BP 127/64
== END 2021-06-23 13:30 | disposition home or self-care (01) ==
LOC: M ED 08:41
DX: R10.10 Upper abdominal pain, unspecified (principal); R11.2 Nausea with vomiting, unspecified
CPT/HCPCS: 36415; 80048; 80076; 83690; 85025; 99283; Q0162

== ENCOUNTER → 2021-10-14 | Outpatient (CLI) | payer MEDICARE, MEDICAID ==
[~2021-10-14] MED LIST changes: +FAMO20TA PO; -FENO134C PO; +FENO134C16 PO; +ONDA4TAB6 PO; +PANT40TA29 PO; +SUCR1TAB56 PO; +VASC1CAP2 PO
== END ==
LOC: M LABSMTC 10:09
PROVIDERS: ATTEND Anesthesiology
DX: Z01.812 Encounter for preprocedural laboratory examination (principal); Z20.822 Contact with and (suspected) exposure to COVID-19

== ENCOUNTER 2021-10-18 11:47 | Day surgery (SDC) | payer MEDICARE, MEDICAID ==
[~2021-10-18] VITALS: Ht 182.9 cm; Wt 110.2 kg
[~2021-10-18 11:47] MED LIST changes: +LIDOCAINE 2% 100MG/5ML SDV (FOR ANES.) As Ordered ONE; +NS 1,000 ML IV ONE; +fentaNYL 100 MCG/2 ML INJECTION As Ordered ONE; +propofoL 200 MG/20 ML VIAL As Ordered ONE
[2021-10-18] MEDS ORDERED: SIMV40TA20 (12:42)
[2021-10-18 14:43] VITALS: BP 131/71
== END 2021-10-18 14:44 | disposition home or self-care (01) ==
LOC: M OPP 11:47
PROVIDERS: ATTEND Internal Medicine Gastroenterology
DX: K21.00 Gastro-esophageal reflux disease with esophagitis, without bleeding (principal); K63.89 Other specified diseases of intestine; K29.70 Gastritis, unspecified, without bleeding; R10.13 Epigastric pain; Z80.0 Family history of malignant neoplasm of digestive organs; Z79.899 Other long term (current) drug therapy
CPT/HCPCS: 43239; 88305; J3010

== ENCOUNTER 2022-10-13 08:26 | Emergency (ER) | payer MEDICARE, MEDICAID ==
[~2022-10-13] VITALS: Ht 182.9 cm; Wt 116.9 kg
[2022-10-13 08:26] VITALS: TEMP 97.2
[~2022-10-13 08:26] MED LIST changes: -FENO134C16 PO; +FENO134C20 PO; -LIDOCAINE 2% 100MG/5ML SDV (FOR ANES.) As Ordered ONE; -NS 1,000 ML IV ONE; +SIMV40TA20; -fentaNYL 100 MCG/2 ML INJECTION As Ordered ONE; -propofoL 200 MG/20 ML VIAL As Ordered ONE
[2022-10-13] MEDS ORDERED: MORPHINE 2 MG/ML 1ML VIAL IV PRN (08:55)
[2022-10-13] MEDS ORDERED: ISOVUE-370 76% 100ML VIAL As Ordered ONE (09:02)
[2022-10-13 09:28] LABS: BASO % 0.4 % (0.0-1.0); EOS # 0.3 10^3/uL (0.0-0.5); EOS % 2.3 % (0.0-3.0); HEMATOCRIT 48.2 % (42.0-52.0); HEMOGLOBIN 16.3 g/dl (13.5-17.5); LYMPH # 3.7 10^3/uL (1.5-5.0); LYMPH % 34.5 % (24.0-44.0); MEAN CORPUSCULAR HEMOGLOBIN 28.5 pg (27.0-33.0); MEAN CORPUSCULAR HGB CONC 33.8 g/dl (32.0-36.5); MEAN CORPUSCULAR VOLUME 84.3 fl (80.0-96.0); MONO # 0.8 10^3/uL (0.0-0.8); NEUTROPHILS % 55.4 % (36.0-66.0); PLATELET COUNT, AUTOMATED 238 10^3/uL (150-450); RED BLOOD COUNT 5.72 10^6/uL (4.30-6.10); WHITE BLOOD COUNT 10.8 10^3/uL (4.0-10.0)
[2022-10-13 09:43] LABS: INR 1.01; PROTHROMBIN TIME 13.5 SECONDS (12.5-14.5)
[2022-10-13 09:44] LABS: PARTIAL THROMBOPLASTIN TIME 33.3 SECONDS (24.8-34.2)
[2022-10-13 09:58] LABS: CK-MB VALUE MASS < 1.0 NG/ML (<3.6)
[2022-10-13 09:59] LABS: LIPASE 55 U/L (12-53)
[2022-10-13 10:01] LABS: ALBUMIN 3.8 G/DL (3.2-5.2); ALKALINE PHOSPHATASE 80 U/L (46-116); ALT/SGPT 38 U/L (7.0-40); AST/SGOT 13 U/L (<34); BILIRUBIN,DIRECT < 0.1 MG/DL (<0.4); BILIRUBIN,TOTAL 0.3 MG/DL (0.3-1.2); CPK CREATINE PHOSPHOKINASE 129 U/L (46-171); MB/CK RELATIVE INDEX 0.77 (< OR =4); TOTAL PROTEIN 6.2 G/DL (5.7-8.2)
[2022-10-13 10:03] LABS: FREE T4 0.99 NG/DL (0.89-1.76); THYROID STIMULATING HORMONE 1.415 uIU/ML (0.55-4.78)
[2022-10-13 11:03] LABS: CK-MB VALUE MASS 1.5 NG/ML (<3.6)
[2022-10-13 11:04] LABS: MB/CK RELATIVE INDEX 1.23 (< OR =4)
[2022-10-13 13:00] VITALS: BP 107/63; O2SAT 95
== END 2022-10-13 13:13 | disposition home or self-care (01) ==
LOC: M ED 08:26
DX: R07.9 Chest pain, unspecified (principal); E78.5 Hyperlipidemia, unspecified; F41.9 Anxiety disorder, unspecified; F32.A Depression, unspecified; F17.200 Nicotine dependence, unspecified, uncomplicated; Z79.899 Other long term (current) drug therapy
CPT/HCPCS: 71045; 71275; 80047; 80076; 82550; 82553; 83690; 83880; 84439; 84443; 84484; 85025; 85610; 85730; 93005; 93041; 94760; 96374; 99285; Q9967

== ENCOUNTER → 2022-12-09 | Outpatient (CLI) | payer MEDICARE, MEDICAID ==
[2022-12-09 14:55] LABS: BASO % 0.4 % (0.0-1.0); EOS # 0.2 10^3/uL (0.0-0.5); HEMATOCRIT 47.8 % (42.0-52.0); HEMOGLOBIN 16.1 g/dl (13.5-17.5); LYMPH # 3.7 10^3/uL (1.5-5.0); LYMPH % 36.7 % (24.0-44.0); MEAN CORPUSCULAR HEMOGLOBIN 28.6 pg (27.0-33.0); MEAN CORPUSCULAR HGB CONC 33.7 g/dl (32.0-36.5); MEAN CORPUSCULAR VOLUME 84.9 fl (80.0-96.0); MONO # 0.5 10^3/uL (0.0-0.8); MONO % 5.3 % (2.0-8.0); NEUTROPHILS # 5.6 10^3/uL (1.5-8.5); PLATELET COUNT, AUTOMATED 269 10^3/uL (150-450); RED BLOOD COUNT 5.63 10^6/uL (4.30-6.10); WHITE BLOOD COUNT 10.1 10^3/uL (4.0-10.0)
[2022-12-09 15:20] LABS: ALBUMIN 3.8 G/DL (3.2-5.2); ALKALINE PHOSPHATASE 81 U/L (46-116); ALT/SGPT 45 U/L (7.0-40); AST/SGOT 15 U/L (<34); BILIRUBIN,TOTAL 0.3 MG/DL (0.3-1.2); BLOOD UREA NITROGEN 15 MG/DL (9-23); CARBON DIOXIDE LEVEL 27 MMOL/L (20-31); CHLORIDE LEVEL 107 MMOL/L (98-107); CHOLESTEROL LEVEL 179 MG/DL (<200); CHOLESTEROL RISK RATIO 6.93 (<5); CREATININE FOR GFR 1.03 MG/DL (0.70-1.30); FREE T4 0.97 NG/DL (0.89-1.76); GLOMERULAR FILTRATION RATE > 60.0 (>60); GLUCOSE, FASTING 103 MG/DL (60-100); HDL CHOLESTEROL 25.8 MG/DL (>40); NON-HDL-C 153.2 MG/DL; POTASSIUM SERUM 3.9 MMOL/L (3.5-5.1); SODIUM LEVEL 143 MMOL/L (136-145); THYROID STIMULATING HORMONE 0.904 uIU/ML (0.55-4.78); TOTAL 25(OH) VITAMIN D 19.4 NG/ML (20.0-100.0); TOTAL PROTEIN 6.6 G/DL (5.7-8.2); TRIGLYCERIDES LEVEL 520 MG/DL (<150)
== END ==
LOC: M LAB 14:25
PROVIDERS: ATTEND Physician Assistant Medical
DX: E55.9 Vitamin D deficiency, unspecified (principal); E78.2 Mixed hyperlipidemia; Z13.6 Encounter for screening for cardiovascular disorders; R63.5 Abnormal weight gain; Z79.899 Other long term (current) drug therapy

== ENCOUNTER → 2023-01-09 | Outpatient (REF) | payer MEDICARE, MEDICAID ==
[2023-01-09 18:27] LABS: BASO # 0.1 10^3/uL (0.0-0.2); BASO % 0.7 % (0.0-1.0); EOS # 0.3 10^3/uL (0.0-0.5); EOS % 2.6 % (0.0-3.0); HEMATOCRIT 50.2 % (42.0-52.0); HEMOGLOBIN 16.6 g/dl (13.5-17.5); LYMPH # 3.4 10^3/uL (1.5-5.0); LYMPH % 34.1 % (24.0-44.0); MEAN CORPUSCULAR HEMOGLOBIN 28.2 pg (27.0-33.0); MEAN CORPUSCULAR HGB CONC 33.1 g/dl (32.0-36.5); MEAN CORPUSCULAR VOLUME 85.2 fl (80.0-96.0); MONO # 0.7 10^3/uL (0.0-0.8); MONO % 6.4 % (2.0-8.0); NEUTROPHILS # 5.6 10^3/uL (1.5-8.5); NEUTROPHILS % 55.6 % (36.0-66.0); PLATELET COUNT, AUTOMATED 270 10^3/uL (150-450); RED BLOOD COUNT 5.89 10^6/uL (4.30-6.10); WHITE BLOOD COUNT 10.1 10^3/uL (4.0-10.0)
[2023-01-09 19:15] LABS: ALKALINE PHOSPHATASE 85 U/L (46-116); ALT/SGPT 37 U/L (7.0-40); AST/SGOT 13 U/L (<34); BILIRUBIN,TOTAL 0.4 MG/DL (0.3-1.2); BLOOD UREA NITROGEN 12 MG/DL (9-23); CARBON DIOXIDE LEVEL 25 MMOL/L (20-31); CHLORIDE LEVEL 107 MMOL/L (98-107); CHOLESTEROL LEVEL 157 MG/DL (<200); CREATININE FOR GFR 0.87 MG/DL (0.70-1.30); GLOMERULAR FILTRATION RATE > 60.0 (>60); GLUCOSE, FASTING 75 MG/DL (60-100); POTASSIUM SERUM 4.7 MMOL/L (3.5-5.1); SODIUM LEVEL 139 MMOL/L (136-145); THYROID STIMULATING HORMONE 0.999 uIU/ML (0.55-4.78); TOTAL 25(OH) VITAMIN D 28.8 NG/ML (20.0-100.0); TOTAL PROTEIN 6.9 G/DL (5.7-8.2); TRIGLYCERIDES LEVEL 296 MG/DL (<150)
[2023-01-09 20:40] LABS: CHOLESTEROL RISK RATIO 5.75 (<5); HDL CHOLESTEROL 27.3 MG/DL (>40); LDL CHOLESTEROL 70.5 MG/DL (<100); NON-HDL-C 129.7 MG/DL
[2023-01-09 21:08] LABS: HIV 1&2 SCREEN NEGATIVE (NEGATIVE)
== END ==
LOC: M LAB REF 16:28
PROVIDERS: ATTEND Family Medicine Addiction Medicine
DX: E55.9 Vitamin D deficiency, unspecified (principal); Z68.32 Body mass index [BMI] 32.0-32.9, adult; Z80.42 Family history of malignant neoplasm of prostate; Z79.899 Other long term (current) drug therapy
CPT/HCPCS: 80053; 80061; 82306; 83036; 84443; 85025; 87389; G0103

== ENCOUNTER → 2023-01-13 | Outpatient (CLI) | payer MEDICARE, MEDICAID | LOC: M RAD 09:11 | PROVIDERS: ATTEND Family Medicine Addiction Medicine | DX: M54.50 Low back pain, unspecified (principal) ==

== ENCOUNTER → 2023-03-31 | Outpatient (REF) | payer MEDICARE, MEDICAID ==
[2023-03-31 12:49] LABS: ALKALINE PHOSPHATASE 81 U/L (46-116); ALT/SGPT 68 U/L (7.0-40); AST/SGOT 25 U/L (<34); BILIRUBIN,TOTAL 0.3 MG/DL (0.3-1.2); BLOOD UREA NITROGEN 12 MG/DL (9-23); CALCIUM LEVEL 9.6 MG/DL (8.5-10.1); CARBON DIOXIDE LEVEL 24 MMOL/L (20-31); CHLORIDE LEVEL 108 MMOL/L (98-107); CHOLESTEROL LEVEL 209 MG/DL (<200); CHOLESTEROL RISK RATIO 6.85 (<5); CREATININE FOR GFR 0.92 MG/DL (0.70-1.30); GLOMERULAR FILTRATION RATE > 60.0 (>60); GLUCOSE, FASTING 95 MG/DL (60-100); HDL CHOLESTEROL 30.5 MG/DL (>40); NON-HDL-C 178.5 MG/DL; POTASSIUM SERUM 4.2 MMOL/L (3.5-5.1); SODIUM LEVEL 143 MMOL/L (136-145); TOTAL PROTEIN 6.9 G/DL (5.7-8.2); TRIGLYCERIDES LEVEL 626 MG/DL (<150)
[2023-03-31 12:52] LABS: THYROID STIMULATING HORMONE 1.362 uIU/ML (0.55-4.78); TOTAL 25(OH) VITAMIN D 20.3 NG/ML (20.0-100.0)
== END ==
LOC: M LAB REF 11:35
PROVIDERS: ATTEND Family Medicine Addiction Medicine
DX: Z13.228 Encounter for screening for other metabolic disorders (principal); E55.9 Vitamin D deficiency, unspecified; Z79.899 Other long term (current) drug therapy

== ENCOUNTER → 2023-05-19 | Outpatient (REF) | payer MEDICARE, MEDICAID | LOC: M LAB REF 09:53 | PROVIDERS: ATTEND Internal Medicine Gastroenterology | DX: R14.0 Abdominal distension (gaseous) (principal); R19.7 Diarrhea, unspecified ==

== ENCOUNTER → 2023-06-06 | Outpatient (CLI) | payer MEDICARE, MEDICAID | LOC: M RAD 12:31 | PROVIDERS: ATTEND Nurse Practitioner Family | DX: R06.02 Shortness of breath (principal); R07.9 Chest pain, unspecified ==

== ENCOUNTER → 2023-06-29 | Outpatient (CLI) | payer MEDICARE, MEDICAID | LOC: M RAD 08:53 | PROVIDERS: ATTEND Internal Medicine Gastroenterology | DX: R14.0 Abdominal distension (gaseous) (principal) ==

== ENCOUNTER → 2023-07-15 | Outpatient (REF) | payer MEDICARE, MEDICAID ==
[2023-07-15 15:22] LABS: ALBUMIN 3.9 G/DL (3.2-5.2); ALKALINE PHOSPHATASE 92 U/L (46-116); ALT/SGPT 65 U/L (7.0-40); AST/SGOT 22 U/L (<34); BILIRUBIN,TOTAL 0.3 MG/DL (0.3-1.2); BLOOD UREA NITROGEN 17 MG/DL (9-23); CALCIUM LEVEL 8.7 MG/DL (8.5-10.1); CARBON DIOXIDE LEVEL 28 MMOL/L (20-31); CHLORIDE LEVEL 111 MMOL/L (98-107); CHOLESTEROL LEVEL 124 MG/DL (<200); CHOLESTEROL RISK RATIO 4.97 (<5); CREATININE FOR GFR 1.13 MG/DL (0.70-1.30); GLOMERULAR FILTRATION RATE > 60.0 (>60); GLUCOSE, FASTING 80 MG/DL (60-100); HDL CHOLESTEROL 24.9 MG/DL (>40); LDL CHOLESTEROL 30.9 MG/DL (<100); NON-HDL-C 99.1 MG/DL; POTASSIUM SERUM 4.7 MMOL/L (3.5-5.1); SODIUM LEVEL 143 MMOL/L (136-145); TOTAL PROTEIN 6.5 G/DL (5.7-8.2); TRIGLYCERIDES LEVEL 341 MG/DL (<150)
[2023-07-15 15:23] LABS: THYROID STIMULATING HORMONE 0.931 uIU/ML (0.55-4.78)
== END ==
LOC: M LAB REF 13:22
PROVIDERS: ATTEND Family Medicine Addiction Medicine
DX: E78.5 Hyperlipidemia, unspecified (principal)

== ENCOUNTER → 2023-07-21 | Outpatient (CLI) | payer MEDICARE, MEDICAID | LOC: M SLEEP HO 11:03 | PROVIDERS: ATTEND Nurse Practitioner Family | DX: R40.0 Somnolence (principal); G47.30 Sleep apnea, unspecified ==

== ENCOUNTER → 2023-09-29 | Outpatient (REF) | payer MEDICARE, MEDICAID ==
[~2023-09-29] MED LIST changes: +DICL75TA PO
[2023-09-29 14:39] LABS: THYROID STIMULATING HORMONE 1.186 uIU/ML (0.55-4.78)
[2023-09-29 14:47] LABS: ALKALINE PHOSPHATASE 97 U/L (46-116); ALT/SGPT 42 U/L (7.0-40); AST/SGOT 20 U/L (<34); BILIRUBIN,TOTAL < 0.2 MG/DL (0.3-1.2); BLOOD UREA NITROGEN 14 MG/DL (9-23); CARBON DIOXIDE LEVEL 24 MMOL/L (20-31); CHLORIDE LEVEL 110 MMOL/L (98-107); CHOLESTEROL LEVEL 208 MG/DL (<200); CHOLESTEROL RISK RATIO 8.96 (<5); CREATININE FOR GFR 0.85 MG/DL (0.70-1.30); GLOMERULAR FILTRATION RATE > 60.0 (>60); GLUCOSE, FASTING 86 MG/DL (60-100); HDL CHOLESTEROL 23.2 MG/DL (>40); NON-HDL-C 184.8 MG/DL; POTASSIUM SERUM 4.5 MMOL/L (3.5-5.1); SODIUM LEVEL 140 MMOL/L (136-145); TOTAL PROTEIN 6.2 G/DL (5.7-8.2); TRIGLYCERIDES LEVEL 1471 MG/DL (<150)
== END ==
LOC: M LAB REF 12:44
PROVIDERS: ATTEND Family Medicine Addiction Medicine
DX: E78.5 Hyperlipidemia, unspecified (principal)

== ENCOUNTER 2023-09-30 10:06 | Emergency (ER) | payer MEDICARE, MEDICAID ==
[~2023-09-30] VITALS: Ht 182.9 cm; Wt 125.4 kg
[~2023-09-30 10:06] MED LIST changes: -DICL75TA PO
[2023-09-30 10:07] VITALS: TEMP 97
[2023-09-30] MEDS ORDERED: DICL75TA PO (11:16)
[2023-09-30 11:23] VITALS: BP 131/76; O2SAT 96
== END 2023-09-30 11:29 | disposition home or self-care (01) ==
LOC: M ED 10:06
DX: M76.61 Achilles tendinitis, right leg (principal); E78.5 Hyperlipidemia, unspecified; F41.9 Anxiety disorder, unspecified; F32.9 Major depressive disorder, single episode, unspecified; F17.200 Nicotine dependence, unspecified, uncomplicated; E66.9 Obesity, unspecified; Z79.899 Other long term (current) drug therapy

== ENCOUNTER → 2023-12-18 | Outpatient (CLI) | payer MEDICARE, MEDICAID ==
[~2023-12-18] MED LIST changes: +DICL75TA PO; +ONDA-282 PO; -ONDA4TAB6 PO
== END ==
LOC: M SLEEP 20:00
PROVIDERS: ATTEND Nurse Practitioner Family
DX: G47.33 Obstructive sleep apnea (adult) (pediatric) (principal)

== ENCOUNTER → 2024-01-21 | Outpatient (REF) | payer MEDICARE, MEDICAID ==
[2024-01-21 14:03] LABS: ALBUMIN 3.9 G/DL (3.2-5.2); ALKALINE PHOSPHATASE 94 U/L (46-116); ALT/SGPT 70 U/L (7.0-40); AST/SGOT 21 U/L (<34); BILIRUBIN,TOTAL 0.4 MG/DL (0.3-1.2); BLOOD UREA NITROGEN 11 MG/DL (9-23); CALCIUM LEVEL 9.6 MG/DL (8.5-10.1); CARBON DIOXIDE LEVEL 26 MMOL/L (20-31); CHLORIDE LEVEL 110 MMOL/L (98-107); CHOLESTEROL LEVEL 133 MG/DL (<200); CHOLESTEROL RISK RATIO 5.93 (<5); CREATININE FOR GFR 1.01 MG/DL (0.70-1.30); GLOMERULAR FILTRATION RATE > 60.0 (>60); GLUCOSE, FASTING 92 MG/DL (60-100); HDL CHOLESTEROL 22.4 MG/DL (>40); NON-HDL-C 110.6 MG/DL; POTASSIUM SERUM 4.5 MMOL/L (3.5-5.1); SODIUM LEVEL 141 MMOL/L (136-145); TOTAL PROTEIN 6.7 G/DL (5.7-8.2); TRIGLYCERIDES LEVEL 318 MG/DL (<150)
[2024-01-21 14:05] LABS: THYROID STIMULATING HORMONE 1.566 uIU/ML (0.55-4.78)
== END ==
LOC: M LAB REF 13:16
PROVIDERS: ATTEND Family Medicine Addiction Medicine
DX: E78.5 Hyperlipidemia, unspecified (principal)

== ENCOUNTER → 2024-02-03 | Outpatient (CLI) | payer OTHER | LOC: M PLAIMG 14:45 | PROVIDERS: ATTEND Physician Assistant | DX: R07.2 Precordial pain (principal); R06.02 Shortness of breath; I31.39 Other pericardial effusion (noninflammatory) ==

== ENCOUNTER 2024-02-16 11:29 | Emergency (ER) | payer OTHER ==
[~2024-02-16] VITALS: Ht 182.9 cm; Wt 127.0 kg
[2024-02-16] MEDS ORDERED: ATOR40TA75 (11:43)
[2024-02-16 15:07] VITALS: BP 133/82; TEMP 97; O2SAT 96
[2024-02-16] MEDS: NEOSPORIN OINT 0.9 GM PKT TOP ONE (15:43)
== END 2024-02-16 15:52 | disposition home or self-care (01) ==
LOC: M ED 11:29
DX: S60.511A Abrasion of right hand, initial encounter (principal); S60.221A Contusion of right hand, initial encounter; W23.2XXA Caught, crushed, jammed or pinched between a moving and stationary object, initial encounter; Y92.9 Unspecified place or not applicable; Y93.9 Activity, unspecified; Y99.0 Civilian activity done for income or pay; Z79.899 Other long term (current) drug therapy

== ENCOUNTER → 2024-08-17 | Outpatient (REF) | payer OTHER ==
[~2024-08-17] MED LIST changes: +ATOR40TA75
[2024-08-17 16:00] LABS: ALBUMIN 4.2 G/DL (3.2-5.2); ALKALINE PHOSPHATASE 91 U/L (40-129); ALT/SGPT 48 U/L (7.0-40); AST/SGOT 19 U/L (<34); BILIRUBIN,TOTAL 0.3 MG/DL (0.3-1.2); BLOOD UREA NITROGEN 14 MG/DL (9-23); CALCIUM LEVEL 9.4 MG/DL (8.5-10.1); CARBON DIOXIDE LEVEL 25 MMOL/L (20-31); CHLORIDE LEVEL 107 MMOL/L (98-107); CHOLESTEROL LEVEL 166 MG/DL (<200); CHOLESTEROL RISK RATIO 6.21 (<5); CREATININE FOR GFR 1.02 MG/DL (0.70-1.30); GLOMERULAR FILTRATION RATE > 90.0 (>60); GLUCOSE, FASTING 90 MG/DL (60-100); HDL CHOLESTEROL 26.7 MG/DL (>40); LDL CHOLESTEROL 73.3 MG/DL (<100); NON-HDL-C 139.3 MG/DL; POTASSIUM SERUM 4.4 MMOL/L (3.5-5.1); SODIUM LEVEL 142 MMOL/L (136-145); TOTAL PROTEIN 7.1 G/DL (5.7-8.2); TRIGLYCERIDES LEVEL 330 MG/DL (<150)
[2024-08-17 16:04] LABS: THYROID STIMULATING HORMONE 1.056 uIU/ML (0.55-4.78)
== END ==
LOC: M LAB REF 14:38
PROVIDERS: ATTEND Family Medicine Addiction Medicine
DX: E78.5 Hyperlipidemia, unspecified (principal)

== ENCOUNTER → 2024-12-14 | Outpatient (CLI) | payer OTHER, SELFPAY ==
[2024-12-14 11:13] LABS: ALT/SGPT 41 U/L (7.0-40); AST/SGOT 25 U/L (<34); CALCIUM LEVEL 9.2 MG/DL (8.5-10.1); CARBON DIOXIDE LEVEL 25 MMOL/L (20-31); CHLORIDE LEVEL 107 MMOL/L (98-107); CHOLESTEROL LEVEL 175 MG/DL (<200); CHOLESTEROL RISK RATIO 5.93 (<5); CREATININE FOR GFR 1.00 MG/DL (0.70-1.30); GLOMERULAR FILTRATION RATE > 90.0 (>60); LDL CHOLESTEROL 69.7 MG/DL (<100); NON-HDL-C 145.5 MG/DL; POTASSIUM SERUM 4.7 MMOL/L (3.5-5.1); SODIUM LEVEL 143 MMOL/L (136-145); TRIGLYCERIDES LEVEL 379 MG/DL (<150)
== END ==
LOC: M LAB 09:41
PROVIDERS: ATTEND Family Medicine Addiction Medicine
DX: Z68.32 Body mass index [BMI] 32.0-32.9, adult (principal)